=== PATIENT | female | born 1960 | race Caucasian/White ===

== ENCOUNTER → 2020-05-24 16:09 | Outpatient (CLI) | payer BC, SELFPAY ==
--- NOTE | ~2020-05-24 | MR_ITS ---
EXAMINATION: MR brain/brain stem wo con DATE: 05/24/2020 17:34 INDICATION: Headaches TECHNIQUE: Magnetic resonance imaging (MRI) of the brain and brainstem was performed without intraven ous contrast. Sequences included sagittal and axial T1-weighted SE, axial diffusion-weighted FS SE, a xial T2*-weighted GRE, axial T2-weighted FLAIR, and axial T2-weighted FSE. Postcontrast axial and cor onal T1-weighted SE was obtained. Apparent diffusion coefficient (ADC) maps were created. COMPARISON: None. FINDINGS: There are no areas of restricted diffusion to suggest acute infarction. No intracranial hemorrhage or abnormal intracranial mass lesion. There is a partially empty sella with pituitary appearing compr essed with concave cephalad margin along the inferior aspect of the enlarged and predominantly CSF fi lled sella turcica which measures 2.0 x 1.2 x 1.3 cm. There is a single small focus of nonspecific in creased T2-weighted signal intensity in the right frontal lobe subcortical white matter which is with in normal limits for age. There are no intraparenchymal signal abnormalities seen on the other pulse sequences. The ventricles are symmetric and normal in size. There are no abnormal extra-axial fluid c ollections. Flow voids are seen in the cerebral arteries on the T2-weighted sequences consistent with their expected patency. Visualized orbits and soft tissues are unremarkable. No evident swelling of the optic disc. IMPRESSION: 1. Partially empty sella which can be seen with idiopathic intracranial hypertension. Reviewed, dictated and finalized at [facility]. [employer] SYSTEMS IMPRESSION: 1. Partially empty sella which can be seen with idiopathic intracranial hyper tension.
== END ==
PROVIDERS: PCP Internal Medicine; Visit Provider Internal Medicine
DX: R51.9 Headache, unspecified (principal)
CPT/HCPCS: 70551

== ENCOUNTER → 2020-07-04 17:31 | Outpatient (CLI) | payer BC, SELFPAY ==
--- NOTE | ~2020-07-04 | DEXA_ITS ---
Bone Density Report Name: Qiana Rivera Age: 60 Sex: Female Ethnicity: White Date of : 1960 Indication: osteopenia; monitoring treatment; height loss; hysterectomy; postmenopausal Referring Provider: DEEPA, NICOLE Study: Bone densitometry was performed. Exam Date: July 04, 2020 Accession number: [id number] Bone Density: Region BMD T-score Z-score Classification AP Spine (L1-L4) 0.834 -1.9 -0.6 Osteopenia Femoral Neck (Left) 0.789 -0.5 0.7 Normal Total Hip (Left) 0.962 0.2 1.1 Normal Femoral Neck (Right) 0.810 -0.4 0.9 Normal Total Hip (Right) 1.006 0.5 1.4 Normal Total Hip Mean 0.984 0.4 1.3 Normal World Health Organization criteria for BMD impression classify patients as: Normal (T-score at or above -1.0), Osteopenia (T-score between -1.0 and -2.5), or Osteoporosis (T-score at or below -2.5). 10-year Fracture Risk: FRAX not reported because: Treated for osteoporosis Previous Exams: Region Exam Age BMD T-score BMD Change BMD Change Date g/cm2 vs Baseline vs Previous AP Spine(L1-L4) 07/04/2020 60 0.834 -1.9 -0.027* -0.025* 05/21/2018 58 0.860 -1.7 -0.002 0.038 05/01/2015 55 0.822 -2.0 -0.039 -0.014 04/20/2013 53 0.836 -1.9 -0.026 0.013 03/13/2011 50 0.823 -2.0 -0.038 0.011 10/26/2008 48 0.812 -2.1 -0.049* -0.049* 10/21/2006 46 0.861 -1.7 Total Hip(Left) 07/04/2020 60 0.962 0.2 0.015 -0.018 05/21/2018 58 0.980 0.3 0.033* 0.006 05/01/2015 55 0.974 0.3 0.027 0.006 04/20/2013 53 0.967 0.2 0.020 0.040* 03/13/2011 50 0.927 -0.1 -0.020 -0.037 10/26/2008 48 0.964 0.2 0.017 0.017 10/21/2006 46 0.947 0.0 Total Hip(Right) 07/04/2020 60 1.006 0.5 0.037* 0.021 05/21/2018 58 0.985 0.4 0.017 -0.005 05/01/2015 55 0.991 0.4 0.022 0.021 04/20/2013 53 0.970 0.2 0.002 0.011 03/13/2011 50 0.959 0.1 -0.010 -0.025 10/26/2008 48 0.983 0.3 0.015 0.015 10/21/2006 46 0.968 0.2 *Denotes significance at 95% confidence level, LSC for AP Spine = 0.022 g/cm2, LSC for Total Hip = 0.027 g/cm2 Clinical Information Provided by Patient: Is being treated for
== END ==
PROVIDERS: PCP Internal Medicine; Visit Provider Nurse Practitioner
DX: M85.88 Other specified disorders of bone density and structure, other site (principal)
CPT/HCPCS: 77080

== ENCOUNTER → 2020-10-30 13:16 | Outpatient (CLI) | payer BC, SELFPAY ==
--- NOTE | ~2020-10-30 | MR_ITS ---
EXAMINATION: MR lumbar spine wo [facility] EXAM DATE: 10/30/2020 13:51 INDICATION: Low back pain, left hip and leg pain, progressing. TECHNIQUE: Multi-sequential, multiplanar MR images of the lumbar spine were obtained without contrast . Sagittal T1, T2, T2 fat saturation images. Axial T2 weighted images. Mild to moderate disc disea se L-1-2 and L2-3, moderate at L5-S1 and mild at L3-4 and L4-5. There is 3 mm retrolisthesis L5 on S1 . The conus medullaris terminates at the L1 level and has normal signal intensity and morphology. Pa raspinal soft tissue is unremarkable. FINDINGS: Level by level evaluation: T12-L1: Disc does not extend beyond the endplate margin. Facet arthropathy: None. Neural foraminal stenosis: No stenosis. Central canal stenosis: No stenosis. L1-L2: There is a mild diffuse disc bulge. Facet arthropathy: Minimal. Neural foraminal stenosis: No stenosis. Central canal stenosis: No stenosis. L2-L3: There is a mild to moderate diffuse disc bulge. Facet arthropathy: Mild. Neural foraminal stenosis: Mild left. Central canal stenosis: No stenosis. L3-L4: There is a mild diffuse disc bulge. Facet arthropathy: Mild. Neural foraminal stenosis: Mild to moderate left. Central canal stenosis: No stenosis. L4-L5: There is a mild diffuse disc bulge. Facet arthropathy: Mild. Neural foraminal stenosis: Mild bilateral. Central canal stenosis: Minimal. L5-S1: There is a mild diffuse disc bulge. Facet arthropathy: Mild. Neural foraminal stenosis: Mild bilateral. Central canal stenosis: Minimal. IMPRESSION: 1. L5-S1 grade 1 retrolisthesis, moderate disc disease. 2. Otherwise overall mild to moderate lumbar spondylosis as detailed above. Reviewed, dictated and finalized at location A.
== END ==
PROVIDERS: PCP Internal Medicine; Visit Provider Internal Medicine
DX: M47.817 Spondylosis without myelopathy or radiculopathy, lumbosacral region (principal); M48.07 Spinal stenosis, lumbosacral region
CPT/HCPCS: 72148

== ENCOUNTER → 2020-12-13 14:23 | Outpatient (CLI) | payer BC, SELFPAY ==
--- NOTE | ~2020-12-13 | XR_ITS ---
. XR hip LT 2V w AP pelvis 12/13/2020 15:00 Indication: Left hip pain Procedure: 3 views left hip including AP pelvis Comparison: No prior studies for comparison. Findings: No fracture, subluxation or dislocation. Normal mineralization. Sacral foramen are symmetri c. Pelvic rings are intact. Impression: 1: No significant bone or joint abnormality. Reviewed, dictated and finalized at location A. Impression: 1: No significant bone or joint abnormality.
== END ==
PROVIDERS: PCP Internal Medicine; Visit Provider Nurse Practitioner Adult Health
DX: M25.552 Pain in left hip (principal)
CPT/HCPCS: 73502

== ENCOUNTER → 2021-01-09 10:07 | Outpatient (CLI) | payer BC, SELFPAY ==
--- NOTE | ~2021-01-09 | MM_ITS ---
EXAMINATION: MM screening [facility] BI w noel HISTORY: Screening mammogram TECHNIQUE: Craniocaudal and mediolateral oblique 3-D tomosynthesis images were obtained and synthetic 2-D images were generated. CAD analysis was submitted and interpreted. COMPARISON: 07/29/2019, 05/21/2018, 04/30/2017 BREAST PARENCHYMAL COMPOSITION: There are scattered areas of fibroglandular density. FINDINGS: There is no evidence of suspicious mass, calcification, or architectural distortion to sugg est malignancy in either breast. There has been no suspicious interval change. IMPRESSION: 1. No mammographic evidence of malignancy. 2. Recommend routine screening mammography in one year. BI-RADS Category 1: Negative Reviewed, dictated and finalized at location A.
== END ==
PROVIDERS: PCP Internal Medicine; Visit Provider Nurse Practitioner
DX: Z12.31 Encounter for screening mammogram for malignant neoplasm of breast (principal)
CPT/HCPCS: 77063; 77067

== ENCOUNTER 2021-10-29 01:58 | Day surgery (SDC) | payer BC, SELFPAY ==
[2021-10-11 14:50] VITALS: BMI 39.2
--- NOTE | 2021-10-26 13:41 | PM.HPGS ---
History of Present Illness History of Present Illness Consent: Risks, benefits, and alternatives have been discussed and questions answered. Patient agrees to proceed with procedure. Chief complaint: neoplasm screening, dysphagia Narrative: Qiana Laidr is a 61 year old female who has had acid reflux her for which she is taking pantoprazole since 2005. She has had dysphagia from time to time and more so recently. On 1 endoscopy she apparently had a Schatzki's ring but it was not dilated from what I can determine. Her last EGD it appears was in 2013. Her last colonoscopy was in 2007. Biopsies were obtained at that time to rule out microscopic colitis, and these were normal. Her main symptom now is that she will feel full after few bites of food as though it is stuck in the subxiphoid area. If she waits well she can continue to eat. Despite feeling full early she has not lost weight in fact has been gradually gaining weight. She has not had episodes were food comes back up on her, or where drinking water will have the water shoot back out because something is impacted, it simply feels as though she is full she is also due for colon cancer screening. Her last colonoscopy was 14 years ago. She does have some issues with constipation lately. Review of Systems Review of Systems: All systems reviewed & are unremarkable except as noted in HPI and below PMFSH Social History Social History Smoking packs per day: 1 Smoking cigarettes per day: 20.0 Years smoked: 6 Smoking pack-years: 6.00 Smoking status: Former smoker Tobacco type: cigarettes Second hand tobacco smoke exposure: Yes Alcohol intake: current Alcohol use details: 2 per month Substance use: never Substance use type: does not use Living arrangements: with family Gender identity (if verbalized by the patient): Female Spiritual care concerns: No Meds Home Medications and Allergies Home Medications Medication Instructions Recorded Confirmed Type alendronate 70 mg tablet 70 mg PO WEEKLY 10/02/21 10/11/21 History cholecalciferol (vitamin D3) 1,250 1,250 mcg PO WEEKLY 10/02/21 10/11/21 History mcg (50,000 unit) capsule ibuprofen 800 mg tablet 800 mg PO TID 10/02/21 10/11/21 History pantoprazole 40 mg tablet,delayed 40 mg PO QAM 28 Days #90 tablet 10/02/21 10/11/21 Rx release Allergies Allergy/AdvReac Type Severity Reaction Status Date / Time No Known Allergies Allergy Unknown Verified 10/29/21 11:56 Exam Const: General: alert Nutritional Appearance: obese Orientation/consciousness: patient oriented x3 Resp: Auscultation: clear to auscultation bilaterally Cardio: Rhythm: regular rhythm GI: GI Palp: Yes Soft to palpation and No Tenderness to palpation present (GI) Neuro: General: patient oriented x3 Assessment and Plan Assessment and plan (1) GERD (gastroesophageal reflux disease): Code(s): K21.9 - Gastro-esophageal reflux disease without esophagitis Status: Acute Assessment and Plan: EGD with possible biopsy or dilatation or cautery. (2) Encounter for colorectal cancer screening: Code(s): Z12.11 - Encounter for screening for malignant neoplasm of colon; Z12.12 - Encounter for screening for malignant neoplasm of rectum Status: Acute Assessment and Plan: Colonoscopy with possible biopsy or polypectomy or cautery or injection of substances.
[2021-10-29 11:48] VITALS: BP 137/85; PULSE 79; RESP 16; TEMP 36; O2SAT 98; BMI 38.7
[2021-10-29] MEDS: LACTATED RINGERS 1,000 ML 150 ML IV CONT (11:55)
--- NOTE | 2021-10-29 12:11 | WPDANESEPPF ---
Anes - Initial Pre Proc Eval Procedure: Operation Date: 10/29/21 13:00 Proposed Procedures p Esophagogastroduodenoscopy & Screening Colonoscopy - Corey Jacome MD Date/Time: 10/29/21 12:11 Surgeon: Corey Jacome MD Pre Op Diagnosis: neoplasm screening, dysphagia Patient Data Age: 61 Gender: F Height: 1.65 m Weight: 105.5 kg Last Vital Signs Temp 36.0 C L 10/29/21 11:48 Pulse 79 10/29/21 11:48 Resp 16 10/29/21 11:48 BP 137/85 10/29/21 11:48 Pulse Ox 98 10/29/21 11:48 Allergies Allergy/AdvReac Type Severity Reaction Status Date / Time No Known Allergies Allergy Unknown Verified 10/29/21 11:56 Home Medications Medication Instructions Recorded Confirmed Type alendronate 70 mg tablet 70 mg PO WEEKLY 10/02/21 10/11/21 History cholecalciferol (vitamin D3) 1,250 1,250 mcg PO WEEKLY 10/02/21 10/11/21 History mcg (50,000 unit) capsule ibuprofen 800 mg tablet 800 mg PO TID 10/02/21 10/11/21 History pantoprazole 40 mg tablet,delayed 40 mg PO QAM 28 Days #90 tablet 10/02/21 10/11/21 Rx release Patient hx anesthesia problems: none Family hx anesthesia problems: none Results Review: All pre-operative results and documents have been reviewed as part of the pre-operative evaluation. [facility] Past Medical History Medical History Arthritis Chronic bronchitis JILLIAN (obstructive sleep apnea) Social History Social History Smoking packs per day: 1 Smoking cigarettes per day: 20.0 Years smoked: 6 Smoking pack-years: 6.00 Smoking status: Former smoker Tobacco type: cigarettes Second hand tobacco smoke exposure: Yes Alcohol intake: current Alcohol use details: 2 per month Substance use: never Substance use type: does not use Living arrangements: with family Gender identity (if verbalized by the patient): Female Spiritual care concerns: No Anes - Eval Final PreProcedure Day of Procedure 10/29/21 12:11 Patient weight: obese Heart: regular rate and rhythm Lungs: decreased breath sounds Airway: Mallampati scale class II Neurological: alert and oriented Last oral intake: >/= 8 hours ASA classification: III Emergent: no Anesthetic plan: proceed Anesthesia type and monitoring: general GIVS and standard monitoring Results Review: All pre-operative results and documents have been reviewed as part of the pre-operative evaluation. Informed Consent: The patient's anesthetic plan and its attendant risks and benefits were discussed with the patient/family/POA. Questions were solicited and answers provided to the satisfaction of the patient/family/POA.
--- NOTE | 2021-10-29 12:44 | SUR.OPER ---
EGD END: 1240 COLONOSCOPY START: 1246
[2021-10-29 13:04] VITALS: BP 97/61; PULSE 71; RESP 18; O2SAT 95
[2021-10-29 13:14] VITALS: BP 107/68; PULSE 59; RESP 18; O2SAT 96
[2021-10-29 13:24] VITALS: BP 123/79; PULSE 64; RESP 14; TEMP 35.9; O2SAT 100
== END 2021-10-29 13:41 | disposition home or self-care (01) ==
PROVIDERS: PCP Internal Medicine; Visit Provider Internal Medicine Gastroenterology
PROC: 0DJ08ZZ Inspection of Upper Intestinal Tract, Via Natural or Artificial Opening Endoscopic (ICD-10-PCS; CPT 43235; principal; 2021-10-29 13:00)
DX: Z12.11 Encounter for screening for malignant neoplasm of colon (principal); K22.2 Esophageal obstruction; K31.7 Polyp of stomach and duodenum; K57.30 Diverticulosis of large intestine without perforation or abscess without bleeding; R10.13 Epigastric pain; M19.90 Unspecified osteoarthritis, unspecified site; G47.33 Obstructive sleep apnea (adult) (pediatric); Z87.891 Personal history of nicotine dependence; E66.9 Obesity, unspecified; Z68.38 Body mass index [BMI] 38.0-38.9, adult
CPT/HCPCS: 45378; 43249; C1726; J2704; J7120

== ENCOUNTER → 2022-03-20 13:29 | Outpatient (CLI) | payer BC, SELFPAY ==
--- NOTE | ~2022-03-20 | MM_ITS ---
EXAMINATION: MM screening [facility] BI w noel HISTORY: Screening mammogram TECHNIQUE: Craniocaudal and mediolateral oblique 3-D tomosynthesis images were obtained and synthetic 2-D images were generated. CAD analysis was submitted and interpreted. COMPARISON: 01/09/2021, 07/29/2019, 05/21/2018 bilateral screening mammogram examinations BREAST PARENCHYMAL COMPOSITION: There are scattered areas of fibroglandular density. FINDINGS: There is no evidence of suspicious mass, calcification, or architectural distortion to sugg est malignancy in either breast. There has been no suspicious interval change. IMPRESSION: 1. No mammographic evidence of malignancy. 2. Recommend routine screening mammography in one year. BI-RADS Category 1: Negative Reviewed, dictated and finalized at location A.
== END ==
PROVIDERS: PCP Internal Medicine; Visit Provider Nurse Practitioner
DX: Z12.31 Encounter for screening mammogram for malignant neoplasm of breast (principal)
CPT/HCPCS: 77063; 77067

== ENCOUNTER → 2022-08-12 13:21 | Outpatient (CLI) | payer BC, SELFPAY ==
--- NOTE | ~2022-08-12 | DEXA_ITS ---
Bone Density Report Name: ROSALINO JACOBO Age: 62 Sex: Female Ethnicity: White Date of : 1960 Indication: postmenopausal osteoporosis; monitoring treatment; height loss; hysterectomy; Referring Provider: DEEPA, NICOLE Study: Bone densitometry was performed. Exam Date: August 12, 2022 Accession number: [id number] Bone Density: Region BMD T-score Z-score Classification AP Spine (L3, L4) 0.839 -2.4 -0.8 Osteopenia Femoral Neck (Left) 0.780 -0.6 0.7 Normal Total Hip (Left) 0.971 0.2 1.3 Normal Femoral Neck (Right) 0.781 -0.6 0.7 Normal Total Hip (Right) 0.989 0.4 1.4 Normal Total Hip Mean 0.980 0.3 1.4 Normal World Health Organization criteria for BMD impression classify patients as: Normal (T-score at or above -1.0), Osteopenia (T-score between -1.0 and -2.5), or Osteoporosis (T-score at or below -2.5). 10-year Fracture Risk: FRAX not reported because: Treated for osteoporosis Previous Exams: Region Exam Age BMD T-score BMD Change BMD Change Date g/cm2 vs Baseline vs Previous AP Spine(L3, L4) 08/12/2022 62 0.839 -2.4 0.009 0.056* 07/04/2020 60 0.783 -2.9 -0.046* -0.034* 05/21/2018 58 0.817 -2.6 -0.012 0.061 05/01/2015 55 0.756 -3.1 -0.074 -0.052* 04/20/2013 53 0.808 -2.7 -0.022 0.015 03/13/2011 50 0.793 -2.8 -0.037 0.013 10/26/2008 48 0.780 -2.9 -0.049* -0.049* 10/21/2006 46 0.830 -2.5 Total Hip(Left) 08/12/2022 62 0.971 0.2 0.024 0.008 07/04/2020 60 0.962 0.2 0.015 -0.018 05/21/2018 58 0.980 0.3 0.033* 0.006 05/01/2015 55 0.974 0.3 0.027 0.006 04/20/2013 53 0.967 0.2 0.020 0.040* 03/13/2011 50 0.927 -0.1 -0.020 -0.037 10/26/2008 48 0.964 0.2 0.017 0.017 10/21/2006 46 0.947 0.0 Total Hip(Right) 08/12/2022 62 0.989 0.4 0.021 -0.017 07/04/2020 60 1.006 0.5 0.037* 0.021 05/21/2018 58 0.985 0.4 0.017 -0.005 05/01/2015 55 0.991 0.4 0.022 0.021 04/20/2013 53 0.970 0.2 0.002 0.011 03/13/2011 50 0.959 0.1 -0.010 -0.025 10/26/2008 48 0.983 0.3 0.015 0.015 10/21/2006 46 0.968 0.2 *Denotes significance at 95% confidence level, LSC
== END ==
PROVIDERS: PCP Internal Medicine; Visit Provider Nurse Practitioner
DX: M85.88 Other specified disorders of bone density and structure, other site (principal)
CPT/HCPCS: 77080

== ENCOUNTER → 2023-05-17 10:36 | Outpatient (CLI) | payer BC, SELFPAY ==
--- NOTE | ~2023-05-17 | MM_ITS ---
EXAMINATION: MM screening [facility] BI w noel HISTORY: Screening mammogram TECHNIQUE: Craniocaudal and mediolateral oblique 3-D tomosynthesis images were obtained and synthetic 2-D images were generated. CAD analysis was submitted and interpreted. COMPARISON: 03/20/2022, 01/09/2021, 07/29/2019 bilateral screening mammogram examinations BREAST PARENCHYMAL COMPOSITION: There are scattered areas of fibroglandular density. FINDINGS: There is no evidence of suspicious mass, calcification, or architectural distortion to sugg est malignancy in either breast. There has been no suspicious interval change. IMPRESSION: 1. No mammographic evidence of malignancy. 2. Recommend routine screening mammography in one year. BI-RADS Category 1: Negative Reviewed, dictated and finalized at location B. AND DIE MAKER
== END ==
PROVIDERS: PCP Obstetrics & Gynecology Gynecology; Visit Provider Obstetrics & Gynecology Gynecology
DX: Z12.31 Encounter for screening mammogram for malignant neoplasm of breast (principal)
CPT/HCPCS: 77063; 77067

== ENCOUNTER 2023-09-24 07:45 | Outpatient (CLI) | payer BC, SELFPAY ==
--- NOTE | ~2023-09-24 | MR_ITS ---
EXAMINATION: MR brain/brain stem wo/w con DATE: 09/24/2023 08:42 INDICATION: Disorder of glossopharyngeal nerve TECHNIQUE: Magnetic resonance imaging (MRI) of the brain and brainstem was performed without and with 19 mL Multihance intravenous contrast. Sequences included sagittal and axial T1-weighted FSE, axial diffusion-weighted FS EPI, axial T2*-weighted GRE, axial T2-weighted FLAIR Propeller, axial T2-weight ed Propeller, small hzwxb-pr-[id number] coronal FIESTA, small ryhjw-ah-gord coronal T1-weighted FSE, and sm all oejui-dx-cndf axial T1-weighted SPGR. Postcontrast sequences included axial T1-weighted FSE, smal l tcppy-nk-nngf coronal T1-weighted FSE, and small subww-qx-urdn axial T1-weighted SPGR. Apparent dif fusion coefficient (ADC) maps were created. COMPARISON: Brain MR dated 05/24/2020 FINDINGS: There are no areas of restricted diffusion to suggest acute infarction. No intracranial hemorrhage or abnormal intracranial mass lesion. There are no intraparenchymal signal abnormalities seen on the ot her pulse sequences. The ventricles are symmetric and normal in size. Again seen is an enlarged empt y sella with pituitary flattened with concave cephalad margin along the floor of the enlarged CSF fi lled sella. Normal midline pituitary stalk. There are no abnormal extra-axial fluid collections. Flow voids are seen in the cerebral arteries on the T2-weighted sequences consistent with their expected patency. Normal seventh/eighth cranial nerve complexes. No cerebellopontine angles masses. The cister nal portion of the glossopharyngeal nerves appear normal extending between its origin at the dorsolat eral margin of the medulla to the prior stenosis of the jugular foramen. Prominent mucosal thickening and small amount of dependently layering fluid which nearly fills the left sphenoid sinus. Mild muco heide thickening in the right maxillary and bilateral ethmoid sinuses. Visualized orbits and soft tissu es are unremarkable. No asymmetric atrophy of the facial musculature. There are no areas of abnormal enhancement on the post contrast images. IMPRESSION: 1. Unchanged expanded, partially empty sella which can be seen with idiopathic intracranial hyperte nsion. 2. Otherwise normal for age brain with normal appearance to the visualized portions of the bilateral hypoglossal nerves. 3. . Prominent mucosal thickening and small amount of dependently layering fluid in the left sphenoid sinus suggestive of acute sinusitis. Reviewed, dictated and finalized at location A. IMPRESSION: 1. Unchanged expanded, partially empty sella which can be seen with idiopathi c intracranial hypertension. 2. Otherwise normal for age brain with normal appearance to the visualized port ions of the bilateral hypoglossal nerves. 3. . Prominent mucosal thickening and small amount of dependently layering flui d in the left sphenoid sinus suggestive of acute sinusitis.
== END 2023-09-24 07:46 ==
PROVIDERS: PCP Internal Medicine
DX: G52.1 Disorders of glossopharyngeal nerve (principal); G50.1 Atypical facial pain
CPT/HCPCS: 70553; A9577

== ENCOUNTER 2024-07-26 07:45 | Outpatient (CLI) | payer BC, SELFPAY ==
--- NOTE | ~2024-07-26 | XR_ITS ---
EXAMINATION: XR lg joint inject/asp w image DATE: 07/26/2024 09:43 EXAMINATION: XR lg joint inject/asp w image DATE: 07/26/2024 09:43 INDICATION: Primary osteoarthritis of the left shoulder. TECHNIQUE: A time-out was performed to verify the patient's name, date of , and procedure to b e performed. The procedure including the risks, benefits, and alternatives was discussed with the pat ient. Risks discussed included bleeding and infection. The patient understood the risks and agreed to proceed. The skin overlying the rotator cuff interval of the left glenohumeral joint was prepped an d draped in usual sterile fashion. Anesthetic was administered with 1% lidocaine subcutaneously. A 22 G needle was advanced under fluoroscopic guidance into the joint. Injection of 1 mL of Omnipaque 240 confirmed intra-articular position of the needle. Subsequently, injectate consisting of 5 mm a 4 :1 mixture of 1% lidocaine: 80 mg/mL Depo-Medrol for a total dosage of 80 mg Depo-Medrol was instille d. Washout of contrast was seen confirming intra-articular administration. The needle was removed and the entry site was cleaned and dressed. There were no immediate complications. Fluoroscopy exposure time was 0.1 minutes. The total number of images was 2. Total DAP was 0.303 Gycm^2 FINDINGS: Real-time fluoroscopy demonstrates the needle and contrast in the left glenohumeral joint. Patient's pain prior to procedure:0/10. Patient's pain following the procedure: 0/10. IMPRESSION: 1. Successful left glenohumeral joint injection of local anesthetic and steroid. . Reviewed, dictated and finalized at location A. CAL PLANNER IMPRESSION: 1. Successful left glenohumeral joint injection of local anesthetic and steroid . .
--- OUTSIDE RECORDS SUMMARY | 2024-07-29 11:36 | XMS_ITS | Referral Summary ---
Author Organization [facility] Address [address] [place] [address] Care Team Providers Care Laundry Machine Mechanic Name Role Phone Aleksandr Pro MD Primary Care Provider [phone] Encounters Date Type Department Care Team Description 05/07/2024 Telephone [facility] Pulmonology [address] [facility] [address] [place] [address] Kristina Boateng RN from Last 3 Months Allergies No known active allergies Medications alendronate (FOSAMAX) 70 mg tablet 06/27/2023 Active ergocalciferol (VITAMIN D) 50,000 unit capsule 06/27/2023 Active ibuprofen (ADVIL,MOTRIN) 800 mg tablet 1 tablet (800 mg total) 3 (three) times a day Active Synthroid 25 mcg tablet 06/11/[address] (PROTONIX) 40 mg EC tablet 06/30/2023 Active Ozempic 2 mg/dose (8 mg/3 mL) pen injector injection 06/11/2023 Active sertraline (ZOLOFT) 50 mg tablet 06/11/2023 Active vibegron (Gemtesa) 75 mg tablet 08/19/2023 Active acetaminophen-c odeine (TYLENOL with CODEINE #3) 300-30 mg per tablet Take 1 tablet twice a day by oral route as needed for 7 days. Active albuterol HFA (PROVENTIL HFA,VENTOLIN HFA,PROAIR HFA) 90 mcg/actuation inhaler INHALE 2 PUFFS PO Q 6 H PRF WHEEZING Active amoxicillin 500 mg tablet/capsule Take 1 tablet every 8 hours by oral route as directed for 7 days. Active capsaicin 0.1 % cream JUANPABLO AA TID PRN Active cefdinir (OMNICEF) 300 mg capsule Take 1 capsule twice a day by oral route for 7 days. Active cefuroxime (CEFTIN) 500 mg tablet Take 1 tablet twice a day by oral route for 10 days. Active ciprofloxacin (Cipro) 500 mg tablet Take 1 tablet twice a day by oral route for 7 days. Active cyclobenzaprine (FLEXERIL) 5 mg tablet Active HYDROcodone-soraya taminophen (NORCO) 10-325 mg per tablet Active lubiprostone (Amitiza) 24 mcg capsule Take by mouth 2 (two) times a day Active phentermine 37.5 mg capsule Take by mouth daily Active phentermine (ADIPEX-P) 37.5 mg tablet Take by mouth daily Active predniSONE (DELTASONE) 10 mg tablet Take by oral route. Active predniSONE (DELTASONE) 20 mg tablet 3tabs x 3 days, 2tabs x 3days, 1 tab x 3 days Active predniSONE (DELTASONE) 50 mg tablet Active sulfamethoxazol e-trimethoprim (BACTRIM DS) 800-160 mg per tablet Take 1 tablet by mouth 2 (two) times a day 09/23/2023 Active traMADoL (ULTRAM) 50 mg tablet Active triamcinolone (KENALOG) 0.1 % cream apply to affected area daily as needed Active magnesium gluconate 12.5 mg magne- sium (250 mg) tablet Take 1 tablet every day by oral route at bedtime. Active nortriptyline (PAMELOR) 25 mg capsule Take 2 capsules at bedtime daily. 180 capsule 1 04/22/2024 Active Active Problems Problem Noted Date Diagnosed Date Simple chronic bronchitis 07/28/2018 Sleep disorder 11/14/2015 Nocturnal hypoxemia 11/14/2015 Allergic rhinitis due to pollen 11/13/2015 Diaphragmatic hernia without obstruction or gang tomi 11/13/2015 Emphysema, unspecified 11/13/2015 Esophageal reflux 11/13/2015 Personal history of nicotine dependence 11/13/19 16 Pulmonary nodule 11/13/2015 Shortness of breath 11/13/2015 Sleep related hypoventilatio n in conditions classified elsewhere 11/13/2015 Social History Tobacco Use Types Packs/Day Years Used Date Smoking Tobacco: Former Cigarettes Tobacco Cessation:Counseling Given: Not Answered Comments No Sex and Gender Information Value Date Recorded Sex Assigned at Not on file Legal Sex Female 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 Gender Identity Female 09/08/2023 7:46 PM CORPORATE AIRCRAFT MECHANIC Sexual Orientation Straight 09/08/2023 7: 46 PM CORPORATE AIRCRAFT MECHANIC Last Filed Vital Signs Vital Sign Reading Time Taken Comments Blood Pressure 144/98 04/22/2024 8:30 AM CDT Pulse 80 04/22/2024 8:30 AM CDT Temperature 36.7 ??C (98.1 ??F) 08/06/2023 1:57 PM CS T Respiratory Rate 18 04/22/2024 8:30 AM CDT Oxygen Saturation 98% 04/22/2024 8:30 AM CDT Inhaled Oxygen Concentration - - Weight 90.8 kg (200 lb 3.2 oz) 04/22/2024 8:30 A M CDT Height 162.6 cm (5' 4 ) 04/22/2024 8:30 AM CDT Body Mass Index 34.36 04/22/2024 8:30 AM CDT Plan of Treatment Not on file Insurance [employer] [facility] [employer] [place] Care Teams Laundry Machine Mechanic Relationship Specialty Start Date End Date Aleksandr Pro MD PCP - General Internal Medicine 11/12/18
--- OUTSIDE RECORDS SUMMARY | 2024-07-29 11:36 | XMS_ITS | Clinical Summary ---
Author Organization [facility] Address [address] [place] [address]. [place], [place] [id number] [place] [address] Care Team Providers Care Flatwork Assembler Name Role Phone Unavailable Primary Care Provider Unavailabl e Social History Tobacco Use Types Packs/Day Years Used Date Smoking Tobacco: Never Assessed Comments Unknown Sex and Gender Information Value Date Recorded Sex Assigned at Not on file Legal Sex Female 6:50 PM CDT Gender Identity Not on file Sexual Orientation Not on file Plan of Treatment Health Maintenance Due Date Last Done Comments Cervical Cancer Screening Pa p Smear (Age 30 to 64) Every 3 Years 1961 Colorectal Cancer Screening Colonoscopy (10 Years) 1961 Annual Physical 1964 Hepatitis C 1979 DTaP, Tdap and Td Vaccines ( 1 - Tdap) 1980 Cervical Cancer Screening Pa p with HPV Testing (Age 30 to 64) Every 5 Years 1991 Cervical Cancer Screening with HPV 1991 Mammogram Screening 2001 Zoster Vaccines (1 of 2) 2011 COVID-19 Vaccine (2023-2 5 season) 2024 Influenza Adult (#1) 2024 RSV Immunization or 60+ Years (1 - 1-dose 75+ series) 2036 Meningococcal Vaccine Aged Out No roel mitchell eligible based on patient's age to complete this topic Pneumococcal Vaccine: Pediat rics (0 to 5 Years) and At-Risk Patients (6 to 64 Years) Aged Out No longer eligible b ased on patient's age to complete this topic RSV Immunizations Under 20 Months Aged Out No longer eligible based on patient's age to complete this topic
--- OUTSIDE RECORDS SUMMARY | 2024-07-29 11:36 | XMS_ITS | Clinical Summary ---
Author Organization [facility] [place] Address [address] [place] [address] Care Team Providers Care Sales Special Agent Name Role Phone Aleksandr Pro MD Primary Care Provider Allergies No known active allergies Medications alendronate [...] hypoventilatio n in conditions classified elsewhere 11/13/2015 Encounters Date Type Department Care Team Description 05/07/2024 Telephone [facility] Pulmonology [address] [facility] [address] [place] [phone] Kristina Boateng RN from Last 3 Months Social History Tobacco Use Types Packs/Day Years Used Date Smoking Tobacco: Former Cigarettes Tobacco Cessation:Counseling Given: Not Answered Comments No Sex and Gender Information Value Date Recorded Sex Assigned at Not on file Legal Sex Female 6:48 PM SECURITY INCIDENT RESPONSE ENGINEER Gender Identity Female 09/08/2023 7:46 PM SECURITY INCIDENT RESPONSE ENGINEER Sexual Orientation Straight 09/08/2023 7: 46 PM SECURITY INCIDENT RESPONSE ENGINEER Obstetrics History Last Filed Vital Signs Vital Sign Reading [...] 04/22/2024 8:30 AM CDT Plan of Treatment Health Maintenance Due Date Last Done Comments Breast Cancer Screening-Mammogram 1961 Cervical Cancer Screening 1961 Colon Cancer Screening-Colonoscopy 1961 Depression Screening 1961 Hepatitis C Screening 1961 DTaP/Tdap/Td Vaccine (1 - Tdap) 1972 Hepatitis B Screening 1979 Regular Well Visit/Exam 18-64 1979 Pneumococcal vaccine <65 (2 of 2 - PPSV23 or PCV20) 05/26/2015 03/31/2015, 03/30/2015, 07/07/2014 Zoster Vaccine (2 of 2) 06/18/2023 04/23/2023 Covid-19 Vaccine (2023-2 5 season) 2024 04/23/2023, 04/16/2022, 01/13/2022, Additional history exists Influenza Vaccine (#1) 2024 3, 04/16/2022, 04/19/2021, Additional history exists Insurance [employer] [place] Care Teams Sales Special Agent Relationship Specialty Start Date End Date Aleksandr Pro MD PCP - General Internal Medicine 11/12/18
--- OUTSIDE RECORDS SUMMARY | 2024-07-29 11:37 | XMS_ITS | Encounter Summary ---
Author Organization [facility] Care Team Providers Care Retail Merchandiser Technician Name Role Phone Aleksandr Pro MD Primary Care Provider [phone] Encounter Details Date Type Department Care Team (Latest Contact Info) Description 11/14/2015 Orders Only [facility] ProviderMisa MD [address] [place] [id number] Social History Tobacco Use Types Packs/Day Years Used Date Smoking Tobacco: Never Assessed Comments Unknown Sex and Gender Information Value Date Recorded Sex Assigned at Not on file Legal Sex Female 6:48 PM PRINT PROJECT MANAGER Gender Identity Female 09/08/2023 7:46 PM PRINT PROJECT MANAGER Sexual Orientation Straight 09/08/2023 7: 46 PM PRINT PROJECT MANAGER documented as of this encounter Plan of Treatment Not on file documented as of this encounter Procedures Procedure Name Priority Date/Time Associated Diagnosis Comments PROCEDURE - RESULT 11/14/2015 12 :00 AM CDT documented in this encounter Results * PROCEDURE - RESULT (11/14/2015 12:00 AM CDT) Narrative 11/14/2015 12:00 AM CDT Ordered by an unspecified provider. Historical Provider Final Res ult documented in this encounter Visit Diagnoses Not on filedocumented in this encounter Care Teams Retail Merchandiser Technician Relationship Specialty Start Date End Date Aleksandr Pro MD PCP - General Internal Medicine 11/12/18 documented as of this encounter
--- OUTSIDE RECORDS SUMMARY | 2024-07-29 11:37 | XMS_ITS | Data Portability ---
Author Organization [facility] JHONYEvgeny Clifton [facility] Address [address] [place] [address] Care Team Providers Care Cell Builder Name Role Phone SASHA WILBERTO Primary Care Provider Assessment Encounter Date Assessment Date Assessment LastModified by Organization Details LastModified Time 01/07/2024 01/07/2024 blood work continue medications MRI lumbar spinal questions answered stay up-to-date on immunizations and screenings and see me in 4-5 month [email or web address] Not available 02/15/2024 16:17:40 05/17/2024 05/17/2024 mammogram is scheduled for July 26, 2024. Blood pressure is controlled continue current therapy CBC CMP lipid ESR CRP A1c T3-T4 TSH she continues to have the paresthesias I need her to go back and see Neurology Not available 05/22/2024 20:18:30 Plan of Treatment Reminders Order Date Submit Date Provider Last Modified By Organization Details Last Modified Time Details Appointments ANY 15 2024 09:30A Yon Pro MD Not available Not available Not available Lab HbA1c (hemoglob in A1c), blood 2023 024 [facility], [address] [facility], [facility] [address], [place], [address], 01/08/2024 08:24:05 T4, free, serum 2023 024 [facility], [address] [facility], [address], [place], [address], 01/08/2024 08:24:08 T3, free, serum or plasma 2023 024 [facility], [address], [place], [address], 01/08/2024 08:24:07 TSH, ultra-sen sitive, serum 2023 024 [facility], [address], [address], [place], [address], 01/08/2024 08:24:06 lipid panel, serum 2023 024 [facility], [address], [place], [address], 01/08/2024 08:24:04 CBC w/ auto diff 2023 024 [facility], [address], [place], [address], 01/08/2024 08:24:06 CMP, serum or plasma 2023 024 [facility], [address], [place], [address], 01/08/2024 08:24:04 ESR (erythroc yte sedimenta tion rate), blood 2023 024 [email or web address], [address], [address], [place], [address], 06/07/2024 17:08:38 C reactive protein, QN, serum or plasma 2023 024 [email or web address], [address], [address], [place], [address], 06/07/2024 17:08:38 CMP, serum or plasma 2023 024 [facility], [address], [address], [place], [address], 05/17/2024 23:21:37 CBC w/ auto diff 2023 024 [email or web address], [address], [address], [place], [address], 06/07/2024 17:08:38 lipid panel, serum 2023 024 [email or web address], [address], [address], [place], [address], 06/07/2024 17:08:38 TSH, ultra-sen sitive, serum 2023 024 [email or web address], [address] [facility], [address], [place], [address], 06/07/2024 17:08:38 T3, free, serum or plasma 2023 024 [email or web address], [address] [facility], [address], [place], [address], 06/07/2024 17:08:38 T4, free, serum 2023 024 [email or web address], [address] [facility], [address], [place], [address], 06/07/2024 17:08:39 HbA1c (hemoglob in A1c), blood 2023 024 [email or web address], [address] [facility], [address], [place], [address], 06/07/2024 17:08:38 Referral None recorded. Procedures None recorded. Surgeries None recorded. Imaging MRI, lumbar spine, w/o contrast [email or web address], [address], [address], [place], [address], 03/31/2024 15:33:44 Medication Orders None recorded. Patient TargetsNo targets recorded. Patient Instructions Encounter Date Encounter Id Patient Instructions Last Modified By Organization Details Last Modified Time 05/17/2024 [id number] A healthy lifestyle: care instructions [email or web address] Not available 05/17/2024 14:27:56 Reason for Referral None Reported. Results Created Date Observation Date Name Description Value Unit Range Abnormal Flag Note LastModifiedBy Organization Detail LastModifiedTime 01/07/2001/08/2024 LIPID PANEL cholesterol, total 188 mg/dL 100-19 9 Not Available [facility] [address] [place], [address], 01/08/2024 08:24:04 01/07/20 24 01/08/2024 LIPID PANEL triglyceride s 119 mg/dL 0-149 Not Available [facility] [address] [place], [address], 01/08/2024 08:24:04 01/07/20 24 01/08/2024 LIPID PANEL HDL cholesterol 49 mg/dL >39 Not Available [facility] [address] [place], [address], 01/08/2024 08:24:04 01/07/20 24 01/08/2024 LIPID PANEL VLDL cholesterol neal 21 mg/dL 5-40 Not Available [facility] [address] [place], [address], 01/08/2024 08:24:04 01/07/20 24 01/08/2024 LIPID PANEL LDL chol calc ([facility]) 118 mg/dL 0-99 above high normal Not Available [facility] [address] [place], [address], 01/08/2024 08:24:04 01/07/20 24 01/08/2024 COMP. METAB OLIC PANEL (14) glucose 86 mg/dL 70-99 Not Available [facility] [address] [place], [address], 01/08/2024 08:24:04 01/07/20 24 01/08/2024 COMP. METAB OLIC PANEL (14) BUN 15 mg/dL 8-27 Not Available [facility] [address] [place], [address], 01/08/2024 08:24:04 01/07/20 24 01/08/2024 COMP. METAB OLIC PANEL (14) creatinine 0.98 mg/dL 0.57-1 .00 Not Available [facility] [address] [place], [address], 01/08/2024 08:24:04 01/07/20 24 01/08/2024 COMP. METAB OLIC PANEL (14) eGFR 65 mL/mi n/1.7 3 >59 Not Available [facility] [address] [place], [address], 01/08/2024 08:24:04 01/07/20 24 01/08/2024 COMP. METAB OLIC PANEL (14) BUN/creatini ne ratio 15 12-28 Not Available [facility] [address] [facility], [address], 01/08/2024 08:24:04 01/07/20 24 01/08/2024 COMP. METAB OLIC PANEL (14) sodium 143 mmol/ L 134-14 4 Not Available [facility] [address] [place], [address], 01/08/2024 08:24:04 01/07/20 24 01/08/2024 COMP. METAB OLIC PANEL (14) potassium 5.0 mmol/ L 3.5-5. 2 Not Available [facility] [address] [place], [address], 01/08/2024 08:24:04 01/07/20 24 01/08/2024 COMP. METAB OLIC PANEL (14) chloride 104 mmol/ L 96-106 Not Available [facility] [address] [place], [address], 01/08/2024 08:24:04 01/07/20 24 01/08/2024 COMP. METAB OLIC PANEL (14) carbon dioxide, total 27 mmol/ L 20-29 Not Available [facility] [address] [place] [address], [place], [address], 01/08/2024 08:24:04 01/07/20 24 01/08/2024 COMP. METAB OLIC PANEL (14) calcium 9.6 mg/dL 8.7-10 .3 Not Available [facility] [address] [place], [address], 01/08/2024 08:24:04 01/07/20 24 01/08/2024 COMP. METAB OLIC PANEL (14) protein, total 6.5 g/dL 6.0-8. 5 Not Available [facility] [address] [facility] [place], [address], 01/08/2024 08:24:04 01/07/20 24 01/08/2024 COMP. METAB OLIC PANEL (14) albumin 4.2 g/dL 3.9-4. 9 Not Available [facility] [address] [place], [address], 01/08/2024 08:24:04 01/07/20 24 01/08/2024 COMP. METAB OLIC PANEL (14) globulin, total 2.3 g/dL 1.5-4. 5 Not Available [facility] [address] [place] [place], [address], 01/08/2024 08:24:04 01/07/20 24 01/08/2024 COMP. METAB OLIC PANEL (14) bilirubin, total 0.3 mg/dL 0.0-1. 2 Not Available [facility] [address] [place], [address], 01/08/2024 08:24:04 01/07/20 24 01/08/2024 COMP. METAB OLIC PANEL (14) alkaline phosphatase 67 IU/L 44-121 Not Available [facility] [address] [place], [address], 01/08/2024 08:24:04 01/07/20 24 01/08/2024 COMP. METAB OLIC PANEL (14) AST (SGOT) 19 IU/L 0-40 Not Available [facility] [address] [place], [address], 01/08/2024 08:24:04 01/07/20 24 01/08/2024 COMP. METAB OLIC PANEL (14) ALT (SGPT) 17 IU/L 0-32 Not Available [facility] [address] [place], [address], 01/08/2024 08:24:04 01/07/20 24 01/08/2024 HEMOG LOBIN A1C hemoglobin A1C 5.6 % 4.8-5. 6 Predi abete s: 5.7 - 6.4 Diabe wilmer: >6.4 Glyce maninder contr ol for adult s with diabe wilmer: <7.0 Not Available [facility] [address] [place], [address], 01/08/2024 08:24:05 01/07/20 24 01/08/2024 TSH TSH 3.590 uIU/m L 0.450- 4.500 Not Available [facility] [address] [place], [address], 01/08/2024 08:24:06 01/07/20 24 01/08/2024 CBC WITH DIFFE RENTI AL/PL ATELE T WBC 8.6 x10e3 /uL 3.4-10 .8 Not Available [facility] [address] [place], [address], 01/08/2024 08:24:06 01/07/20 24 01/08/2024 CBC WITH DIFFE RENTI AL/PL ATELE T RBC 4.51 x10e6 /uL 3.77-5 .28 Not Available [facility] [address] [place], [address], 01/08/2024 08:24:06 01/07/20 24 01/08/2024 CBC WITH DIFFE RENTI AL/PL ATELE T hemoglobin 13.4 g/dL 11.1-1 5.9 Not Available [facility] [address] [place], [address], 01/08/2024 08:24:06 01/07/20 24 01/08/2024 CBC WITH DIFFE RENTI AL/PL ATELE T hematocrit 40.7 % 34.0-4 6.6 Not Available [facility] [address] [place], [address], 01/08/2024 08:24:06 01/07/20 24 01/08/2024 CBC WITH DIFFE RENTI AL/PL ATELE T MCV 90 fL 79-97 Not Available [facility] [address] [place], [address], 01/08/2024 08:24:06 01/07/20 24 01/08/2024 CBC WITH DIFFE RENTI AL/PL ATELE T MCH 29.7 pg 26.6-3 3.0 Not Available [facility] [address] [place], [address], 01/08/2024 08:24:06 01/07/20 24 01/08/2024 CBC WITH DIFFE RENTI AL/PL ATELE T MCHC 32.9 g/dL 31.5-3 5.7 Not Available [facility] [address] [place], [address], 01/08/2024 08:24:06 01/07/20 24 01/08/2024 CBC WITH DIFFE RENTI AL/PL ATELE T RDW 12.5 % 11.7-1 5.4 Not Available [facility] [address] [facility], [place], [address], 01/08/2024 08:24:06 01/07/20 24 01/08/2024 CBC WITH DIFFE RENTI AL/PL ATELE T platelets 283 x10e3 /uL 150-45 0 Not Available [facility] [address] [facility], [place], [address], 01/08/2024 08:24:06 01/07/20 24 01/08/2024 CBC WITH DIFFE RENTI AL/PL ATELE T neutrophils 52 % notest ab. Not Available [facility] [address] [facility], [place], [address], 01/08/2024 08:24:06 01/07/20 24 01/08/2024 CBC WITH DIFFE RENTI AL/PL ATELE T lymphs 35 % notest ab. Not Available [facility] [address] [facility], [place], [address], 01/08/2024 08:24:06 01/07/20 24 01/08/2024 CBC WITH DIFFE RENTI AL/PL ATELE T monocytes 9 % notest ab. Not Available [facility] [address] [facility], [place], [address], 01/08/2024 08:24:06 01/07/20 24 01/08/2024 CBC WITH DIFFE RENTI AL/PL ATELE T eos 3 % notest ab. Not Available [facility] [address] [facility], [place], [address], 01/08/2024 08:24:06 01/07/20 24 01/08/2024 CBC WITH DIFFE RENTI AL/PL ATELE T basos 1 % notest ab. Not Available [facility] [address] [place], [address], 01/08/2024 08:24:06 01/07/20 24 01/08/2024 CBC WITH DIFFE RENTI AL/PL ATELE T neutrophils (absolute) 4.5 x10e3 /uL 1.4-7. 0 Not Available [facility] [address] [facility], [place], [address], 01/08/2024 08:24:06 01/07/20 24 01/08/2024 CBC WITH DIFFE RENTI AL/PL ATELE T lymphs (absolute) 3.0 x10e3 /uL 0.7-3. 1 Not Available [facility] [address] [place], [address], 01/08/2024 08:24:06 01/07/20 24 01/08/2024 CBC WITH DIFFE RENTI AL/PL ATELE T monocytes(ab solute) 0.7 x10e3 /uL 0.1-0. 9 Not Available [facility] [address] [place], [address], 01/08/2024 08:24:06 01/07/20 24 01/08/2024 CBC WITH DIFFE RENTI AL/PL ATELE T eos (absolute) 0.3 x10e3 /uL 0.0-0. 4 Not Available [facility] [address] [place], [address], 01/08/2024 08:24:06 01/07/20 24 01/08/2024 CBC WITH DIFFE RENTI AL/PL ATELE T baso (absolute) 0.1 x10e3 /uL 0.0-0. 2 Not Available [facility] ([place] [facility]) [address] [place], [address], 01/08/2024 08:24:06 01/07/20 24 01/08/2024 CBC WITH DIFFE RENTI AL/PL ATELE T immature granulocytes 0 % notest ab. Not Available [facility] [address] [facility], [place], [address], 01/08/2024 08:24:06 01/07/20 24 01/08/2024 CBC WITH DIFFE RENTI AL/PL ATELE T immature grans (abs) 0.0 x10e3 /uL 0.0-0. 1 Not Available [facility] [address] [facility], [place], [address], 01/08/2024 08:24:06 01/07/20 24 01/08/2024 TRIIO DOTHY SEBASTIAN E (T3), FREE triiodothyro nine (T3), free 2.6 pg/mL 2.0-4. 4 Not Available [facility] [address] [facility], [place], [address], 01/08/2024 08:24:07 01/07/20 24 01/08/2024 T4,FR EE(DI RECT) T4,free(dire ct) 0.97 NG/dL 0.82-1 .77 Not Available [facility] [address] [place], [address], 01/08/2024 08:24:08 03/02/20 24 10/29/2021 colon oscop y proce dure (PROC ) No observ ation record ed. BARCODE Not Available 2023 10:42:02 03/02/20 24 03/20/2022 MAMMO , scree evie, digit al, bilat eral No observ ation record ed. BARCODE Not Available 2023 10:42:02 07/26/19 25 07/26/2024 injec tion/ aspir ation large joint /burs a (PROC ) No observ ation record ed. [facility] [address], [place], [address], 07/28/2024 15:25:33 07/27/19 25 07/26/2024 MAMMO , scree evie, digit al, bilat eral No observ ation record ed. [facility] [address], [place], [address], 07/28/2024 15:25:12 07/27/19 25 07/26/2024 MAMMO , scree evie, digit al, bilat eral No observ ation record ed. [facility] [address], [place], [address], 07/28/2024 15:24:55 Result Notes None recorded. Problems Name Problem SNOMED Code Status Onset Date Resolution Date Notes Provider Name and Address Organization Details Recorded Time Chronic low back pain 379984002 Active 2023 Nathaniel Edwards [place] null, [place] [facility] 4 16:00:05 Essential hypertension 41053713 Active 2023 Nathaniel Edwards [place], [place] [facility] 4 16:00:06 Hyperlipidemia 30156537 Active 2023 Nathaniel Edwards [place] [facility] 4 16:00:07 Type 2 diabetes mellitus 30472475 Active 2023 Nathaniel Edwards [place], [place] [facility] 4 16:00:08 Problem Notes None recorded. Procedures Surgical History Date Name Laterality Status Provider Name and Address Organization Details Recorded Time 07/07/18 97 Total hysterectomy completed Rekha Anderson MA [place] - [facility] 01/07/2024 15:18:43 Imaging Results Imaging Date Name Status LastModified by Organiz aton [facility] Details LastModified Time 10/29/2021 colonoscopy procedure (PROC) completed [facility] Information not available 03/02/2024 10:42:02 03/20/2022 MAMMO, screening, digital, bilateral completed [facility] Information not available 03/02/2024 10:42:02 07/26/2024 injection/aspir ation large joint/bursa (PROC) completed [facility] [address], [place], [address], 07/28/2024 15:25:33 07/26/2024 MAMMO, screening, digital, bilateral completed [facility] [address], [place], [address], 07/28/2024 15:25:12 07/26/2024 MAMMO, screening, digital, bilateral completed [facility] [address], [place], [address], 07/28/2024 15:24:55 Procedure Notes None recorded. Medical Equipment None Reported. Allergies No known drug allergies Medications Name Sig Start Date Stop Date Status Note LastModified by Organization Details LastModified Time celecoxib 200 mg capsule TAKE 1 CAPSULE BY MOUTH EVERY DAY active Not Available Not Available No t Available alendronate 70 mg tablet TAKE 1 TABLET BY MOUTH 1 TIME A WEEK DIRECTED active Not Available Not Available Not Available sulfamethoxa zole 800 mg-trimethop rim 160 mg tablet TAKE 1 TABLET BY MOUTH TWICE DAILY active Not Available Not Available No t Available nortriptylin e 25 mg capsule active Not Available Not Available Not Available Synthroid 25 mcg tablet TAKE 1 TABLET DAILY active Not Available Not Available No t Available pantoprazole 40 mg tablet,delay ed release TAKE 1 TABLET DAILY 2023 active Not Available Not Available Not Avai lable gabapentin 300 mg capsule active Not Available Not Available Not Available ergocalcifer ol (vitamin D2) 1,250 mcg (50,000 unit) capsule TAKE 1 CAPSULE BY MOUTH EVERY WEEK active Not Available Not Available No t Available sertraline 50 mg tablet TAKE 1 TABLET DAILY active Not Available Not Available No t Available Ozempic 2 mg/dose (8 mg/3 mL) subcutaneous pen injector INJECT 2 MG WEEKLY (PLEASE CALL DOCTOR TO SCHEDULE APPOINTMENT SOON POSSIBLE) active Not Available Not Available No t Available Vitals Date Recorded Body height Provider Name an d Address Organization Details Last Updated DateTime 01/07/2024 165.1 cm Rekha Anderson MA [place] - [facility] 15:14:45 Date Recorded Body mass index (BMI) Body weight Provider Name and Address Organization Details Last Updated DateTime 01/07/2024 33 kg/m2 18281.01 g ILYA [facility] 15:14:49 Date Recorded Heart rate Provider Name an d Address Organization Details Last Updated DateTime 01/07/2024 81 /min Rekha JustinILYA qiu [facility] 15:21:31 Date Recorded Oxygen saturation Oxygen saturation in Arterial blood by Pulse oximetry Provider Name and Address Organization Details Last Updated DateTime 01/07/2024 97 % 97 % Rekha JustinILYA qiu [place] [facility] 01/07/2024 15:21:33 Date Recorded Body height Provider Name an d Address Organization Details Last Updated DateTime 05/17/2024 165.1 cm Rekha AndersonILYA [place] [facility] 11:38:24 Date Recorded Body mass index (BMI) Body weight Provider Name and Address Organization Details Last Updated DateTime 05/17/2024 33.2 kg/m2 57908.76 g Rekha JustinILYA qiu [place] - [facility] 1 07/17/2023 11:40:32 Date Recorded Heart rate Provider Name an d Address Organization Details Last Updated DateTime 05/17/2024 78 /min RekhaILYA Rodriguez [facility] 11:42:42 Date Recorded Oxygen saturation Oxygen saturation in Arterial blood by Pulse oximetry Provider Name and Address Organization Details Last Updated DateTime 05/17/2024 98 % 98 % Rekha Anderson ILYA [facility] 05/17/2024 11:42:44 Date Recorded Systolic blood pressure Diastolic blood pressure Provider Name and Address Organization Details Last Updated DateTime 01/07/2024 122 mm[Hg] 70 mm[Hg] Rekha Anderson ILYA [facility] 01/07/2024 15:21:28 Date Recorded Systolic blood pressure Diastolic blood pressure Provider Name and Address Organization Details Last Updated DateTime 05/17/2024 134 mm[Hg] 70 mm[Hg] Rekha AndersonILYA - [facility] 05/17/2024 11:42:48 Social History Question Answer Notes LastModified by Organizat ion Details LastModified Time Tobacco Smoking Status Former Smoker Rekha Justin, ILYA [facility], [place] - [facility] 01/07/2024 15:17:26 Do You Have An Advance Directive? No Information not available 01/07/2024 What Is Your Level Of Alcohol Consumption? Occasional Information not available 01/07/2024 Are You Blind Or Do You Have Difficulty Seeing? No Information not available 01/07/2024 What Is Your Level Of Caffeine Consumption? Heavy Information not available 01/07/2024 In The 14 Days Before Symptom Onset, Have You Had Close Contact With A Laboratory-confir med COVID-19 While That Case Was Ill? No Information not available 01/07/2024 In The 14 Days Before Symptom Onset, Have You Had Close Contact With A Person Who Is Under Investigation For COVID-19 While That Person Was Ill? No Information not available 01/07/2024 Have You Been To An Area Known To Be High Risk For COVID-19? No Information not available 01/07/2024 Are You Currently Employed? Yes Information not available 01/07/2024 Are You Deaf Or Do You Have Serious Difficulty Hearing? No Information not available 01/07/2024 What Type Of Diet Are You Following? 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 No Information not available 01/07/2024 What Was The Date Of Your Most Recent Tobacco Screening? 05/17/2024 Information not available 05/17/2024 What Is Your Current Pack Years? 10packyears Information not available 01/07/2024 What Is Your Relationship Status? Information not available 01/07/2024 Do You Use Your Seat Belt Or Car Seat Routinely? Yes Information not available 01/07/2024 Do You Have Smoke And Carbon Monoxide Detectors In Your Home? Yes Information not available 01/07/2024 How Much Tobacco Do You Smoke? No Information not available 01/07/2024 Do You Feel Stressed (tense, Restless, Nervous, Or Anxious, Or Unable To Sleep At Night)? [id number] Information not available 01/07/2024 Do You Use Any Illicit Or Recreational Drugs? No Information not available 01/07/2024 Do You Use Sunscreen Routinely? Yes Information not available 01/07/2024 Has Tobacco Cessation Counseling Been Provided? No Information not available 01/07/2024 How Many Years Have You Smoked Tobacco? 10 Information not available 01/07/2024 Do You Or Have You Ever Used Any Other Forms Of Tobacco Or Nicotine? No Information not available 01/07/2024 Sex: Female Functional Status Question Answer Note LastModified by Organization D etails LastModified Time Are you able to care for yourself? Yes Information n ot available 01/07/2024 What is your exercise level? None Information not available 01/07/2024 Mental Status None recorded. Family History Relationship Description Onset Age of this Age Resolved Age Notes LastModified by Organization Details LastModified Time Father Diabetes mellitus mebyma Not available 2023 15:16:04 Sister Diabetes mellitus mebyma Not available 2023 15:16:04 Sister Disorder of thyroid gland mebyma Not available 2023 15:16:12 Sister Malignant tumor of ovary mebyma Not available 2023 15:16:45 Brother Hypertensive disorder mebyma Not available 2023 15:16:27 Mother Hypertensive disorder mebyma Not available 2023 15:16:27 Mother Osteoporosis mebyma Not availab le 01/07/2024 15:16:35 Medical History Condition Response Muscle, Joint, or Bone Problems Y Osteoporosis Y Gynecological HistoryNo gynecological history recorded. Obstetrics History GPAL:G 0 P 0 0 0 0 Immunizations Vaccine Type Date Status Note Provider Baljinder art and Address Organization Details Recorded Time Influenza, split virus, quadrivalent, preservative 7 completed ILYA Samaniego, [facility] 01/07/2024 15:32:54 Influenza, split virus, quadrivalent, preservative 6 completed ILYA Samaniego, [facility] 01/07/2024 15:32:54 Influenza, split virus, quadrivalent, preservative 9 completed Nathaniel Edwards [place] null, [place] [facility] 01/07/2024 15:32:54 Influenza, MDCK, quadrivalent, PF 3 completed Nathaniel [place] [facility] 01/07/2024 15:32:54 zoster recombinant 3 completed Nathaniel [place] [facility] 01/07/2024 15:32:54 COVID-19, mRNA, LNP-S, PF, 30 mcg/0.3 mL dose 1 completed Nathaniel [place] [facility] 01/07/2024 15:32:54 COVID-19, mRNA, LNP-S, PF, 30 mcg/0.3 mL dose 1 completed Nathaniel [place] [facility] 01/07/2024 15:32:54 COVID-19, mRNA, LNP-S, PF, 30 mcg/0.3 mL dose 1 completed Nathaniel [place] [facility] 01/07/2024 15:32:54 COVID-19, mRNA, LNP-S, PF, 30 mcg/0.3 mL dose 1 completed Nathaniel [place] [facility] 01/07/2024 15:32:54 COVID-19, mRNA, LNP-S, PF, 30 mcg/0.3 mL dose, kade-sucrose 2 completed Nathaniel [place] [facility] 01/07/2024 15:32:54 COVID-19, mRNA, LNP-S, bivalent, PF, 30 mcg/0.3 mL dose 2 completed Nathaniel [place] [facility] 01/07/2024 15:32:54 COVID-19, mRNA, LNP-S, PF, kade-sucrose, 30 mcg/0.3 mL 3 completed Nathaniel [place] [facility] 01/07/2024 15:32:54 Pneumococcal conjugate PCV 13 5 completed Nathaniel [place] [facility] 01/07/2024 15:32:54 Influenza, split virus, trivalent, preservative 7 completed Nathaniel [place] [facility] 01/07/2024 15:32:54 Influenza, split virus, trivalent, preservative 4 completed Nathaniel [place] [facility] 01/07/2024 15:32:54 Influenza, split virus, trivalent, PF 6 completed Nathaniel [place] [facility] 01/07/2024 15:32:54 Influenza, split virus, trivalent, PF 5 completed Nathaniel [place] [facility] 01/07/2024 15:32:54 Influenza, split virus, quadrivalent, PF 8 completed ILYA [place] [facility] 01/07/2024 15:32:54 Influenza, split virus, quadrivalent, PF 2 completed Nathaniel Edwards [place] null, [place] [facility] 01/07/2024 15:32:54 Influenza, split virus, quadrivalent, PF 1 completed Nathaniel Edwards [place], [place] [facility] 01/07/2024 15:32:54 Influenza, split virus, quadrivalent, PF 0 completed Nathaniel Edwards [place] [facility] 01/07/2024 15:32:54 Influenza, split virus, trivalent, PF 4 completed Rekha Anderson [place], [place] [facility] 05/17/2024 11:38:34 Past Encounters Encounter ID Performer Location Encounter Start Date Encounter Closed Date Diagnosis/Indication Diagnosis SNOMED-CT Code Diagnosis ICD10 Code Diagnosis Note [id number] MD Moni Connolly (Adult Med) [address] [place] [phone] 01/07/2024 14:58:00 01/07/2024 16:05:43 Essential hypertension 12444264 I10 Hyperlipidemia 23795161 E78.5 Type 2 home betes mellitus 20598193 E11.9 Chronic low back pain 27 9171680 M54.50 [id number] Wilberto Pro MD [facility] Radha Ruiz [address] [place] [address] 05/17/2024 11:04:13 05/17/2024 12:25:10 Obesity 267892310 E66.9 Essential hypertension 67999966 I10 Hyperlipidemia 55174825 E78.5 Diabetes m ellitus screening 670209589 Z13.1 Paresthesia 09334886 R20 .2 Hypothyroidism 03207136 E03.9 Health Concerns Section Related Observation LastModified by Organization Detai ls LastModified Time None Recorded Concern Status LastModified by Organization Details LastModified Time None Recorded Advance Directives Directive N: Payers Encounter Date Sequence Insurance Name Policy Number Policy Moe Covered Member ID Moe Member ID Guarantor Name 01/07/2024 1 [place] [id number] Qiana Chito-E lliott [id number] Qiana Chito-Ell iott 01/07/2024 2 [place] [id number] Silvestre Puenteiott [id number] Qiana Chito-Ell iott 05/17/2024 1 [place] [id number] Qiana Chito-E lliott [id number] Qiana Chito-Ell iott 05/17/2024 2 [place] [id number] Silvestre Puenteiott [id number] Qiana Chito-Ell iott Notes Date Note Type Note Provider Name and Address Organization Details Recorded Time 01/07/2024 text/html 63-year-old for continuity of problems hypertension no headache has not had any dizziness. Hyperlipidemia has lost some weight and needs some blood work to evaluate that diabetes no polyphagia or polydipsia she has chronic low back pain getting a little bit worse going on for a couple of years no numbness tingling no saddle anesthesia worse with movement better with rest no loss of function Wilberto Pro MD Attn: [address] [facility], [place], [address], [facility] 02/15/2024 16:18:04 05/17/2024 text/html GERD stable no nausea no vomiting anxiety has been doing fine on sertraline no side effects hypothyroidism no heat or cold intolerance. Obesity good results a GLP 1 facial numbness has seen Neurology they put her on nortriptyline Wilberto Pro MD Attn: [address] [facility], [place], [address], [place] - [facility] 05/22/2024 20:18:52 OBGyn Episode No OBEpisode recorded.
== END 2024-07-26 07:46 | disposition home or self-care (01) ==
LOC: ANHIMG 07:46
PROVIDERS: PCP Internal Medicine; Visit Provider Physician Assistant Surgical
DX: M19.012 Primary osteoarthritis, left shoulder (principal)
CPT/HCPCS: 20610; 77002; J1010; J2003; Q9966

== ENCOUNTER 2024-07-26 15:47 | Outpatient (CLI) | payer BC, SELFPAY ==
--- NOTE | ~2024-07-26 | MM_ITS ---
EXAMINATION: MM screening [facility] BI w noel HISTORY: Screening TECHNIQUE: Craniocaudal and mediolateral oblique 3-D tomosynthesis images were obtained and synthetic 2-D images were generated. CAD analysis was submitted and interpreted. COMPARISON: Comparison to multiple prior studies sequentially, with oldest reviewed study dated 04/07. BREAST PARENCHYMAL COMPOSITION: Not dense: There are scattered areas of fibroglandular density. FINDINGS: There is no evidence of suspicious mass, calcification, or architectural distortion to sugg est malignancy in either breast. There has been no suspicious interval change. IMPRESSION: 1. No mammographic evidence of malignancy. 2. Recommend routine screening mammography in one year. BI-RADS Category 1: Negative Reviewed, dictated and finalized at location A. T TRIMMER
== END 2024-07-26 15:48 | disposition home or self-care (01) ==
LOC: MICIMG 15:50
PROVIDERS: PCP Internal Medicine; Visit Provider Nurse Practitioner
DX: Z12.31 Encounter for screening mammogram for malignant neoplasm of breast (principal)
CPT/HCPCS: 77063; 77067

== ENCOUNTER 2024-08-25 13:40 | Outpatient (CLI) | payer BC, SELFPAY ==
--- NOTE | ~2024-08-25 | DEXA_ITS ---
Bone Density Report Name: ROSALINO JACOBO Age: 64 Sex: Female Ethnicity: White Date of : 1960 Indication: postmenopausal; screening for osteoporosis; height loss; hysterectomy; Referring Provider: DEEPA, NICOLE Study: Bone densitometry was performed. Exam Date: August 25, 2024 Accession number: [id number] Bone Density: Region BMD T-score Z-score Classification AP Spine(L1-L4) 0.814 -2.1 -0.5 Osteopenia Femoral Neck (Left) 0.750 -0.9 0.5 Normal Total Hip (Left) 0.911 -0.3 0.9 Normal Femoral Neck (Right) 0.723 -1.1 0.3 Osteopenia Total Hip (Right) 0.914 -0.2 0.9 Normal Total Hip Mean 0.913 -0.3 0.9 Normal World Health Organization criteria for BMD impression classify patients as: Normal (T-score at or above -1.0), Osteopenia (T-score between -1.0 and -2.5), or Osteoporosis (T-score at or below -2.5). 10-year Fracture Risk: FRAX not reported because: Treated for osteoporosis Clinical Information Provided by Patient: Is being treated for osteoporosis Has used the following medications: Vitamin D Has the following medical conditions: Hysterectomy Patient maximum height was 67 Menopause Age: 37 No regular weight bearing exercise Does not regularly consume dairy products Drinks caffeinated beverages Onset of menses at age 13 Number of children 0 Impression: The patient has low bone mass, based on the Total Spine T-score. Discussion: It is important to ask patients whether they are taking their medications and to encourage continued and appropriate compliance with their osteoporosis therapies to reduce fracture risk. It is also important to review their risk factors and encourage appropriate calcium and vitamin D intakes, exercise, fall prevention and other lifestyle measures. Follow-Up: Consider a repeat BMD and Vertebral Fracture Assessment (VFA) exam in 2 years or sooner if medically necessary, to reassess this patient's status. Reported by: MADDIE on 08/25/2024 2:13:00 PM. Reviewed, dictated and finalized at location [facility] ROACH
--- OUTSIDE RECORDS SUMMARY | 2024-08-25 13:46 | XMS_ITS | Clinical Summary ---
Author Organization [facility] Address [address] [place] [id number] Care Team Providers Care Nursing Scheduler Name Role Phone Unavailable Primary Care Provider [...] (1 - 1-dose 75+ series) 2036 Meningococcal B Vaccine Aged Out No l onger eligible based on patient's age to complete this topic Meningococcal Vaccine Aged Out No roel mitchell [...]
--- OUTSIDE RECORDS SUMMARY | 2024-08-25 13:46 | XMS_ITS | Encounter Summary ---
Author Organization [facility] Facility Care Team Providers Care Dance Entertainer Name Role Phone Aleksandr Pro MD Primary Care Provider Encounter Details Date Type Department Care Team (Latest Contact Info) Description 11/14/2015 Orders Only [facility]INCONV ProviderMisa MD [address] [place] [phone] Social History Tobacco Use Types Packs/Day Years Used Date Smoking Tobacco: Never Assessed Comments Unknown Sex and Gender Information Value Date Recorded Sex Assigned at Not on file Legal Sex Female 6:48 PM [employer] Gender Identity Female 09/08/2023 7:46 PM [employer] Sexual Orientation Straight 09/08/2023 7: 46 PM [employer] documented as of this encounter Plan of [...] on filedocumented in this encounter Care Teams Dance Entertainer Relationship Specialty Start Date End Date Aleksandr Pro MD PCP - General Internal Medicine 11/12/18 documented as of this encounter
--- OUTSIDE RECORDS SUMMARY | 2024-08-25 13:46 | XMS_ITS | Data Portability ---
Author Organization [facility] JHONYSari [facility] Address [address] [facility] [facility] [place] [address] Care Team Providers Care Loader Name Role Phone SASHAWILBERTO Primary Care Provider [phone] Assessment Encounter Date Assessment Date Assessment LastModified by Organization Details LastModified Time 01/07/2024 01/07/2024 blood work continue medications MRI lumbar spinal questions answered stay up-to-date on immunizations and screenings and see me in 4-5 month Not available 02/15/2024 16:17:40 05/17/2024 05/17/2024 mammogram is scheduled for July 26, 2024. Blood pressure is controlled continue current therapy CBC CMP lipid ESR CRP A1c T3-T4 TSH she continues to have the paresthesias I need her to go back and see Neurology [email or web address] Not available 05/22/2024 20:18:30 Plan of Treatment Reminders Order Date Submit Date Provider Last Modified By Organization Details Last Modified Time Details Appointments ANY 15 2024 09:30A Yon Pro MD Not available Not available Not available Lab ESR (erythroc yte sedimenta tion rate), blood 2023 024 [email or web address] [facility], [address] [facility] [address], [place], [address], 06/07/2024 17:08:38 C reactive protein, QN, serum or plasma 2023 024 [email or web address] [facility], [address] [facility], [facility], [place], [address], 06/07/2024 17:08:38 CMP, serum or plasma 2023 024 CURT [facility], [address], [place], [address], 05/17/2024 23:21:37 CBC w/ auto diff 2023 024 [email or web address] [facility], [address], [place], [address], 06/07/2024 17:08:38 lipid panel, serum 2023 024 [email or web address] [facility], [address], [place], [address], 06/07/2024 17:08:38 TSH, ultra-sen sitive, serum 2023 024 [email or web address] [facility], [address], [place], [address], 06/07/2024 17:08:38 T3, free, serum or plasma 2023 024 [email or web address] [facility], [address], [place], [address], 06/07/2024 17:08:38 T4, free, serum 2023 024 [email or web address] [facility], [address], [place], [address], 06/07/2024 17:08:39 HbA1c (hemoglob in A1c), blood 2023 024 [email or web address] [facility], [address], [place], [address], 06/07/2024 17:08:38 HbA1c (hemoglob in A1c), blood 2023 024 CURT [facility], [address], [place], [address], 01/08/2024 08:24:05 T4, free, serum 2023 024 CURT [facility], [address] [facility], [place], [address], 01/08/2024 08:24:08 T3, free, serum or plasma 2023 024 CURT [facility], [address] [facility], [place], [address], 01/08/2024 08:24:07 TSH, ultra-sen sitive, serum 2023 024 CURT [facility], [address] [facility], [place], [address], 01/08/2024 08:24:06 lipid panel, serum 2023 024 CURT [facility], [address] [place] [address], [facility] [address], [place], [address], 01/08/2024 08:24:04 CBC w/ auto diff 2023 024 CURT [facility], [address] [facility], [facility] [address], [place], [address], 01/08/2024 08:24:06 CMP, serum or plasma 2023 024 CURT [facility], [address] [facility], [facility] [address], [place], [address], 01/08/2024 08:24:04 Referral None recorded. Procedures None recorded. Surgeries None recorded. Imaging MRI, lumbar spine, w/o contrast 2023 024 [email or web address] [facility], [address], [place], [address], 03/31/2024 15:33:44 Medication Orders None recorded. Patient TargetsNo targets recorded. Patient Instructions Encounter Date Encounter Id Patient Instructions Last Modified By Organization Details Last Modified Time 05/17/2024 [id number] A healthy lifestyle: care instructions [email or web address] Not available 05/17/2024 14:27:56 Reason for Referral None Reported. Results Created Date Observation Date Name Description Value Unit Range Abnormal Flag Note LastModifiedBy Organization Detail LastModifiedTime 01/07/2001/08/2024 LIPID PANEL cholesterol, total 188 mg/dL 100-19 9 Not Available [facility] ([facility]) [address] [place], [address], 01/08/2024 08:24:04 01/07/20 24 01/08/2024 LIPID PANEL triglyceride s 119 mg/dL 0-149 Not Available [facility] ([facility]) [address] [facility] [place], [address], 01/08/2024 08:24:04 01/07/20 24 01/08/2024 LIPID PANEL HDL cholesterol 49 mg/dL >39 Not Available [facility] ([facility]) [address] [place], [address], 01/08/2024 08:24:04 01/07/20 24 01/08/2024 LIPID PANEL VLDL cholesterol neal 21 mg/dL 5-40 Not Available [facility] ([facility]) [address] [place], [address], 01/08/2024 08:24:04 01/07/20 24 01/08/2024 LIPID PANEL LDL chol calc ([facility]) 118 mg/dL 0-99 above high normal Not Available [facility] ([facility]) [address] [place], [address], 01/08/2024 08:24:04 01/07/20 24 01/08/2024 COMP. METAB OLIC PANEL (14) glucose 86 mg/dL 70-99 Not Available [facility] ([facility]) [address] [place], [address], 01/08/2024 08:24:04 01/07/20 24 01/08/2024 COMP. METAB OLIC PANEL (14) BUN 15 mg/dL 8-27 Not Available [facility] ([facility]) [address] [place], [address], 01/08/2024 08:24:04 01/07/20 24 01/08/2024 COMP. METAB OLIC PANEL (14) creatinine 0.98 mg/dL 0.57-1 .00 Not Available [facility] ([facility]) [address] [place], [address], 01/08/2024 08:24:04 01/07/20 24 01/08/2024 COMP. METAB OLIC PANEL (14) eGFR 65 mL/mi n/1.7 3 >59 Not Available [facility] ([facility]) [address] [place], [address], 01/08/2024 08:24:04 01/07/20 24 01/08/2024 COMP. METAB OLIC PANEL (14) BUN/creatini ne ratio 15 12-28 Not Available [facility] ([facility]) [address] [facility] [place], [address], 01/08/2024 08:24:04 01/07/20 24 01/08/2024 COMP. METAB OLIC PANEL (14) sodium 143 mmol/ L 134-14 4 Not Available [facility] ([facility]) [address] [facility] [place], [address], 01/08/2024 08:24:04 01/07/20 24 01/08/2024 COMP. METAB OLIC PANEL (14) potassium 5.0 mmol/ L 3.5-5. 2 Not Available [facility] ([facility]) [address] [facility] [place], [address], 01/08/2024 08:24:04 01/07/20 24 01/08/2024 COMP. METAB OLIC PANEL (14) chloride 104 mmol/ L 96-106 Not Available [facility] ([facility]) [address] [facility] [place], [address], 01/08/2024 08:24:04 01/07/20 24 01/08/2024 COMP. METAB OLIC PANEL (14) carbon dioxide, total 27 mmol/ L 20-29 Not Available [facility] ([facility]) [address], [place], [address], 01/08/2024 08:24:04 01/07/20 24 01/08/2024 COMP. METAB OLIC PANEL (14) calcium 9.6 mg/dL 8.7-10 .3 Not Available [facility] ([facility]) [address] [place], [address], 01/08/2024 08:24:04 01/07/20 24 01/08/2024 COMP. METAB OLIC PANEL (14) protein, total 6.5 g/dL 6.0-8. 5 Not Available [facility] ([facility] [address] [facility] [place], [address], 01/08/2024 08:24:04 01/07/20 24 01/08/2024 COMP. METAB OLIC PANEL (14) albumin 4.2 g/dL 3.9-4. 9 Not Available [facility] ([facility]) [address] [facility] [place], [address], 01/08/2024 08:24:04 01/07/20 24 01/08/2024 COMP. METAB OLIC PANEL (14) globulin, total 2.3 g/dL 1.5-4. 5 Not Available [facility] ([facility] [address] [place] [place], [address], 01/08/2024 08:24:04 01/07/20 24 01/08/2024 COMP. METAB OLIC PANEL (14) bilirubin, total 0.3 mg/dL 0.0-1. 2 Not Available [facility] ([facility] [address] [place] [place], [address], 01/08/2024 08:24:04 01/07/20 24 01/08/2024 COMP. METAB OLIC PANEL (14) alkaline phosphatase 67 IU/L 44-121 Not Available [facility] ([facility]) [address] [place], [address], 01/08/2024 08:24:04 01/07/20 24 01/08/2024 COMP. METAB OLIC PANEL (14) AST (SGOT) 19 IU/L 0-40 Not Available [facility] ([facility]) [address] [place], [address], 01/08/2024 08:24:04 01/07/20 24 01/08/2024 COMP. METAB OLIC PANEL (14) ALT (SGPT) 17 IU/L 0-32 Not Available [facility] ([facility]) [address] [place], [address], 01/08/2024 08:24:04 01/07/20 24 01/08/2024 HEMOG LOBIN A1C hemoglobin A1C 5.6 % 4.8-5. 6 Predi abete s: 5.7 - 6.4 Diabe wilmer: >6.4 Glyce maninder contr ol for adult s with diabe wilmer: <7.0 Not Available [facility] ([facility]) [address] [place], [address], 01/08/2024 08:24:05 01/07/20 24 01/08/2024 TSH TSH 3.590 uIU/m L 0.450- 4.500 Not Available [facility] ([facility]) [address] [place], [address], 01/08/2024 08:24:06 01/07/20 24 01/08/2024 CBC WITH DIFFE RENTI AL/PL ATELE T WBC 8.6 x10e3 /uL 3.4-10 .8 Not Available [facility] ([facility]) [address] [place], [address], 01/08/2024 08:24:06 01/07/20 24 01/08/2024 CBC WITH DIFFE RENTI AL/PL ATELE T RBC 4.51 x10e6 /uL 3.77-5 .28 Not Available [facility] ([facility]) [address] [place], [address], 01/08/2024 08:24:06 01/07/20 24 01/08/2024 CBC WITH DIFFE RENTI AL/PL ATELE T hemoglobin 13.4 g/dL 11.1-1 5.9 Not Available [facility] ([facility]) [address] [place], [address], 01/08/2024 08:24:06 01/07/20 24 01/08/2024 CBC WITH DIFFE RENTI AL/PL ATELE T hematocrit 40.7 % 34.0-4 6.6 Not Available [facility] ([facility]) [address] [place], [address], 01/08/2024 08:24:06 01/07/20 24 01/08/2024 CBC WITH DIFFE RENTI AL/PL ATELE T MCV 90 fL 79-97 Not Available [facility] ([facility]) [address] [place], [address], 01/08/2024 08:24:06 01/07/20 24 01/08/2024 CBC WITH DIFFE RENTI AL/PL ATELE T MCH 29.7 pg 26.6-3 3.0 Not Available [facility] ([facility]) [address] [place], [address], 01/08/2024 08:24:06 01/07/20 24 01/08/2024 CBC WITH DIFFE RENTI AL/PL ATELE T MCHC 32.9 g/dL 31.5-3 5.7 Not Available [facility] ([facility]) [address] [place], [address], 01/08/2024 08:24:06 01/07/20 24 01/08/2024 CBC WITH DIFFE RENTI AL/PL ATELE T RDW 12.5 % 11.7-1 5.4 Not Available [facility] ([facility]) [address] [facility], [place], [address], 01/08/2024 08:24:06 01/07/20 24 01/08/2024 CBC WITH DIFFE RENTI AL/PL ATELE T platelets 283 x10e3 /uL 150-45 0 Not Available [facility] ([facility]) [address] [facility], [place], [address], 01/08/2024 08:24:06 01/07/20 24 01/08/2024 CBC WITH DIFFE RENTI AL/PL ATELE T neutrophils 52 % notest ab. Not Available [facility] ([facility]) [address] [facility], [place], [address], 01/08/2024 08:24:06 01/07/20 24 01/08/2024 CBC WITH DIFFE RENTI AL/PL ATELE T lymphs 35 % notest ab. Not Available [facility] ([facility]) [address] [facility], [place], [address], 01/08/2024 08:24:06 01/07/20 24 01/08/2024 CBC WITH DIFFE RENTI AL/PL ATELE T monocytes 9 % notest ab. Not Available [facility] ([facility]) [address] [facility], [place], [address], 01/08/2024 08:24:06 01/07/20 24 01/08/2024 CBC WITH DIFFE RENTI AL/PL ATELE T eos 3 % notest ab. Not Available [facility] ([facility]) [address] [facility], [place], [address], 01/08/2024 08:24:06 01/07/20 24 01/08/2024 CBC WITH DIFFE RENTI AL/PL ATELE T basos 1 % notest ab. Not Available [facility] ([facility]) [address] [place], [address], 01/08/2024 08:24:06 01/07/20 24 01/08/2024 CBC WITH DIFFE RENTI AL/PL ATELE T neutrophils (absolute) 4.5 x10e3 /uL 1.4-7. 0 Not Available [facility] ([facility]) [address] [facility], [place], [address], 01/08/2024 08:24:06 01/07/20 24 01/08/2024 CBC WITH DIFFE RENTI AL/PL ATELE T lymphs (absolute) 3.0 x10e3 /uL 0.7-3. 1 Not Available [facility] ([facility]) [address] [place], [address], 01/08/2024 08:24:06 01/07/20 24 01/08/2024 CBC WITH DIFFE RENTI AL/PL ATELE T monocytes(ab solute) 0.7 x10e3 /uL 0.1-0. 9 Not Available [facility] ([facility]) [address] [place], [address], 01/08/2024 08:24:06 01/07/20 24 01/08/2024 CBC WITH DIFFE RENTI AL/PL ATELE T eos (absolute) 0.3 x10e3 /uL 0.0-0. 4 Not Available [facility] ([facility]) [address] [place], [address], 01/08/2024 08:24:06 01/07/20 24 01/08/2024 CBC WITH DIFFE RENTI AL/PL ATELE T baso (absolute) 0.1 x10e3 /uL 0.0-0. 2 Not Available [facility] ([facility]) [address] [place], [address], 01/08/2024 08:24:06 01/07/20 24 01/08/2024 CBC WITH DIFFE RENTI AL/PL ATELE T immature granulocytes 0 % notest ab. Not Available [facility] ([facility]) [address] [facility], [place], [address], 01/08/2024 08:24:06 01/07/20 24 01/08/2024 CBC WITH DIFFE RENTI AL/PL ATELE T immature grans (abs) 0.0 x10e3 /uL 0.0-0. 1 Not Available [facility] ([facility]) [address] [facility], [place], [address], 01/08/2024 08:24:06 01/07/20 24 01/08/2024 TRIIO DOTHY SEBASTIAN E (T3), FREE triiodothyro nine (T3), free 2.6 pg/mL 2.0-4. 4 Not Available [facility] ([facility]) [address] [facility], [place], [address], 01/08/2024 08:24:07 01/07/20 24 01/08/2024 T4,FR EE(DI RECT) T4,free(dire ct) 0.97 NG/dL 0.82-1 .77 Not Available [facility] ([facility]) [address] [place], [address], 01/08/2024 08:24:08 03/02/20 24 10/29/2021 colon oscop y proce dure (PROC ) No observ ation record ed. BARCODE Not Available 2023 10:42:02 03/02/20 24 03/20/2022 MAMMO , scree evie, digit al, bilat eral No observ ation record ed. BARCODE Not Available 2023 10:42:02 07/26/19 25 07/26/2024 injec tion/ aspir ation large joint /burs a (PROC ) No observ ation record ed. [facility] [address], [place], [address], 07/28/2024 15:25:33 07/27/19 25 07/26/2024 MAMMO , scree evie, digit al, bilat eral No observ ation record ed. [facility] [address], [place], [address], 07/28/2024 15:25:12 07/27/19 25 07/26/2024 MAMMO , scree evei, digit al, bilat eral No observ ation record ed. [facility] [address], [place], [address], 07/28/2024 15:24:55 Result Notes None recorded. Problems Name Problem SNOMED Code Status Onset Date Resolution Date Notes Provider Name and Address Organization Details Recorded Time Chronic low back pain 904236858 Active 2023 Nathaniel Edwards MA null, [place] - [facility] 4 16:00:05 Essential hypertension 77241538 Active 2023 Nathaniel Edwards [place] [facility] 4 16:00:06 Hyperlipidemia 84339416 Active 2023 Nathaniel Edwards [place], [place] [facility] 4 16:00:07 Type 2 diabetes mellitus 55930717 Active 2023 Nathaniel Edwards [place], [place] [facility] 4 16:00:08 Problem Notes None recorded. Procedures Surgical History Date Name Laterality Status Provider Name and Address Organization Details Recorded Time 07/07/18 97 Total hysterectomy completed Rekha Anderson MA [place] - [facility] 01/07/2024 15:18:43 Imaging Results Imaging Date Name Status [facility] Details LastModified Time 10/29/2021 colonoscopy procedure (PROC) completed [facility] Information not available 03/02/2024 10:42:02 03/20/2022 MAMMO, screening, digital, bilateral completed [facility] Information not available 03/02/2024 10:42:02 07/26/2024 injection/aspir ation large joint/bursa (PROC) completed [facility] [address], [place], [address], 07/28/2024 15:25:33 07/26/2024 MAMMO, screening, digital, bilateral completed [facility] [address], [place], [address], 07/28/2024 15:25:12 07/26/2024 MAMMO, screening, digital, bilateral completed [facility] [address], [place], [address], 07/28/2024 15:24:55 Procedure Notes None recorded. Medical [...] t Available Vitals Date Recorded Body height Body mass index (BMI) Body weight Heart rate Oxygen saturation Oxygen saturation in Arterial blood by Pulse oximetry Systolic blood pressure Diastolic blood pressure Provider Name and Address Organization Details Last Updated DateTime 4 165.1 cm 33 kg/m2 11914.0 1 g 81 /min 97 % 97 % 122 mm[Hg] 70 mm[Hg] Rekha Anderson MA [facility] 4 15:21:28 Date Recorded Body height Body mass index (BMI) Body weight Heart rate Oxygen saturation Oxygen saturation in Arterial blood by Pulse oximetry Systolic blood pressure Diastolic blood pressure Provider Name and Address Organization Details Last Updated DateTime 4 165.1 cm 33.2 kg/m2 52812.7 6 g 78 /min 98 % 98 % 134 mm[Hg] 70 mm[Hg] Rekha Anderson MA [place] - [facility] 4 11:42:48 Social History Question Answer Notes LastModified by Organizat ion Details LastModified Time Tobacco Smoking Status Former Smoker Rekha Anderson MA [facility], [facility] 01/07/2024 15:17:26 Do You Have An Advance [...] Anxious, Or Unable To Sleep At Night)? [id number] Information not available 01/07/2024 Do You Use [...] Immunizations Vaccine Type Date Status Note Provider Nam e and Address Organization Details Recorded Time Influenza, split virus, quadrivalent, preservative 7 completed Nathaniel Edwards [place], [place] [facility] 01/07/2024 15:32:54 Influenza, split virus, quadrivalent, preservative 6 completed Nathaniel Edwards [place], [place] [facility] 01/07/2024 15:32:54 Influenza, split virus, quadrivalent, preservative [...] PF, kade-sucrose, 30 mcg/0.3 mL 3 completed ILYA [place] [facility] 01/07/2024 15:32:54 Pneumococcal conjugate PCV 13 5 completed IL[place] [facility] 01/07/2024 [...] Influenza, split virus, quadrivalent, PF 8 completed Nathaniel Edwards [place] [facility] 01/07/2024 15:32:54 Influenza, split virus, quadrivalent, PF 2 completed Nathaniel Edwards [place] [facility] 01/07/2024 15:32:54 Influenza, split virus, quadrivalent, PF 1 completed Nathaniel Edwards [place] [facility] 01/07/2024 15:32:54 Influenza, split virus, quadrivalent, PF 0 completed Nathaniel Edwards MA null, [place] - [facility] 01/07/2024 15:32:54 Influenza, split virus, trivalent, PF 4 completed Rekha Anderson MA null, [place] - [facility] 05/17/2024 11:38:34 Past Encounters Encounter ID Performer Location Encounter Start Date Encounter Closed Date Diagnosis/Indication Diagnosis SNOMED-CT Code Diagnosis ICD10 Code Diagnosis Note [id number] Wilberto Pro MD [facility] (Adult Med) [address] [place] [address] 01/07/2024 14:58:00 01/07/2024 16:05:43 Essential hypertension 65258037 I10 Hyperlipidemia 89840177 E78.5 Type 2 home betes mellitus 40793118 E11.9 Chronic low back pain 27 6055916 M54.50 [id number] Wilberto Pro MD [facility] [place] [address] [place] [address] 05/17/2024 11:04:13 05/17/2024 12:25:10 Obesity 497947727 E66.9 Essential hypertension 64787339 I10 Hyperlipidemia 17422425 E78.5 Diabetes m ellitus screening 807369342 Z13.1 Paresthesia 41711794 R20 .2 Hypothyroidism 97542693 E03.9 Health Concerns Section Related Observation LastModified by Organization Detai ls LastModified Time None Recorded Concern Status LastModified by Organization Details LastModified Time None Recorded Advance Directives Directive N: Payers Encounter Date Sequence Insurance Name Policy Number Policy Moe Covered Member ID Moe Member ID Guarantor Name 01/07/2024 1 [place] [id number] Qiana Chito-E lliott [id number] Qiana Chito-Ell iott 01/07/2024 2 [place] [id number] Silvestre Laird [id number] Qiana Chito-Ell iott 05/17/2024 1 [place] [id number] Qiana Chito-E lliott [id number] Qiana Chito-Ell iott 05/17/2024 2 [place] [id number] Silvestre Puenteiott [id number] Qiana gilbert Notes Date Note Type Note Provider Name [...] function Wilberto Pro MD Attn: [address] [place], [address], [facility] 02/15/2024 16:18:04 05/17/2024 text/html GERD stable no nausea no vomiting anxiety has been doing fine on sertraline no side effects hypothyroidism no heat or cold intolerance. Obesity good results a GLP 1 facial numbness has seen Neurology they put her on nortriptyline Wilberto Pro MD Attn: [address] [place], [address], [facility] 05/22/2024 20:18:52 OBGyn Episode No OBEpisode recorded.
--- OUTSIDE RECORDS SUMMARY | 2024-08-25 13:47 | XMS_ITS | Data Portability ---
Author Organization [place] [employer], Main Office Address [address] [place] [address] Care Team Providers Care Client Associate Name Role Phone WILBERTO PRO Primary Care Provider [phone] WILBERTO PRO Referring Provider [phone] Assessment Encounter Date Assessment Date Assessment LastModified by Organization Details LastModified Time 11/07/2022 11/07/2022 Patient returns after MRI scan left shoulder it. I reviewed the images and the report with the patient. It demonstrates evidence of prior comminuted fracture of the anterior-inferior glenoid with minimal residual impaction best seen on parasagittal images 1101-13 and 14. There is loss of cartilage inferior humeral head and loss of cartilage inferior glenoid indicative of mild posttraumatic arthritis there. There is also diffuse tendinopathy of the upper subscapularis the supraspinatus and the infraspinatus tendons most severe involving the supraspinatus tendon with mid substance higher signal intensity diffusely which can be associated with the company interstitial partial-thickness tearing and there are some shallow bursal sided surface tears as well. No evidence of full-thickness tear or high-grade partial-thickness tear from the tuberosity. The long head of the biceps looks perfectly normal in the bicipital groove. I cannot characterize the intra-articular portion of long head of biceps however this was discussed with the patient. Patient was sent for physical therapy at last visit and given a Medrol Dosepak. The Medrol Dosepak did not help the physical therapy did not help so she called us to order the MRI scan which was done. Prior to this she has used Celebrex and Motrin 800 mg both causing mild improvement in her symptoms. She does not feel 1 helped better than the other. Patient does computer work all day. On exam today she has pain with both parts of 2 part Joes's test in the anterolateral shoulder as well as pain with speed's maneuver anterolateral shoulder. On abduction strength testing she has mild weakness with pain lateral leung deltoid area elevation 140 with moderate pain lateral deltoid area external rotation 60 the same pain internal rotation was T11 without significant discomfort. She had 5/5 external rotation about press strength. Impression patient has early posttraumatic arthritis of left shoulder related to her injury presumably that was 36 years ago when she fell on the shoulder and has had soreness in the shoulder off and on ever since. Secondly she has diffuse rotator cuff tendinopathy with mid substance higher signal intensity in the supraspinatus that may be associated with some interstitial partial-thickness tearing as well. There is some surface bursal sided shallow erosions in the tendon also. I have discussed options with her. There is no clear-cut surgical indication at this point. I would not rule out the possibility of a diagnostic arthroscopy with debridement has possibly labral degeneration or intra-articular long of the biceps degenerative tearing could be present which could possibly be improved with debridement or biceps tenotomy or tenodesis. This would be unpredictable. I have recommended trying a cortisone injection into the glenohumeral joint under image guidance by the radiologist and will prescribe Celebrex 200 mg daily. Possible side effects were discussed. She has tolerated before has no history of kidney liver problems or peptic ulcer disease. I will see her back in 6 weeks assess her progress. I would like her to continue with her home exercise program working on scapular kinematics and posture. 30 minutes were spent in total care this patient more than half the time spent in [id number] care. [email or web address] Not available 11/07/2022 09:38:59 12/19/2022 12/19/2022 HPI: Patient returns. She is here for follow-up of left shoulder. she had fluoroscopic guided cortisone injection into the glenohumeral joint on 11/26. She thinks that it did help. She is able sleep at night now without waking up in pain. She has not been taking the Celebrex daily. She takes it intermittently. She still notices some pain in the biceps muscle belly area with certain motions, particularly internal rotation. The soreness and pain that she was having deep in the shoulder seems to have improved quite a bit. She does have mild degree of pain on a daily basis but overall is very tolerable. Physical exam: Patient has elevation 145 of the left shoulder and external rotation 80 internal rotation is to T11. She has some minimal discomfort with internal rotation. 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 She again her MRI scan showed no definite pathology. She feels at this point her symptoms are very tolerable. We talked about avoiding activities that may aggravate shoulder particularly overhead activities. She is going to try to modify things to try to do this. she asked about repeat cortisone injections in the future and we talked about it needs to be a minimum of 3 months. Hopefully she will need them less frequently than that. She does have early osteoarthritis in the shoulder joint and this will progress over time and we discussed this briefly as well. This point she is comfortable in will see her back as needed [email or web address] Not available 12/19/2022 09:15:36 01/06/2023 01/06/2023 Please see wellness she also continue current therapy labs from October reviewed follow-up in 6 months all questions answered [email or web address] Not available 01/18/2023 16:55:10 05/07/2023 05/07/2023 Neuro exam appears normal opinion and neurology consultation hold off on MRI in testing and let them decide what they want to do [email or web address] Not available 05/11/2023 11:15:29 06/04/2023 06/04/2023 Continue current therapy follow-up 5 months [email or web address] Not available 06/04/2023 21:35:15 Plan of Treatment Reminders Order Date Submit Date Provider Last Modified By Organization Details Last Modified Time Details Appointments None recorded. Lab None recorded. Referral neurologica l surgeon referral 2022 023 qi Amaya, [address], [address], [place], [address], 11:01:54 Procedures None recorded. Surgeries None recorded. Imaging None recorded. Medication Orders Ozempic 2 mg/dose (8 mg/3 mL) subcutaneou s pen injector 2022 023 [email or web address] [facility], [address] [place] [address], [place], [address], 21:34:06 sertraline 50 mg tablet 2022 023 [email or web address] [facility], [address] [place] [address], [address], 17:32:12 levothyroxi ne 25 mcg tablet 2022 023 [email or web address] [facility], [address] [place] [address], [id number], 3 17:32:12 Celebrex 200 mg capsule 2022 023 [email or web address] [id number], [address] [facility], [place], [place], [id number], 16:44:43 Patient TargetsNo targets recorded. Patient Instructions Encounter Date Encounter Id Patient Instructions Last Modified By Organization Details Last Modified Time 01/06/2023 [id number] advance care planning: care instructions [email or web address] Not available 01/18/2023 16:55:41 advance directives: care instructions Not available 01/18/2023 16:55:41 [place] Advance Directives Not available 01/18/2023 16:55:41 risk assessment* [email or web address] Not available 01/18/2023 16:55:41 INFLUENZA VACCIN E Recommended today, but patient declined Ordered Patient will get at local pharmacy/health department TD/TDAP Recommended today, patient declined Ordered Patient will get at local pharmacy/health department PNEUMONIA VACCINE Ordered Recommend ed today, patient declined Patient will get at local pharmacy/health department Recomm ended at age 66 SHINGLES Ordered Recommend ed today, patient declined Patient will get at local pharmacy/health department MAMMOGRAM: Last Mammogram___03/28_ DEXA SCAN No screening necessary patient is up to date CERVICAL SCREENING/PELVIC EXAMINATION Recommended today, but patient declined Ordered No screening necessary patient is up to date COLORECTAL SCREENING: Last Colonoscopy No screening necessary patient is up to date DEPRESSION SCREENING Negative BMI Overweight Approp riate Underweight Obesity continue your current weight loss efforts try to lose 5% of your body weight try to lose 10% of your body weight try to lose 15% of your body weight NUTRITION Heart Healthy Diet Recommendati on of a 1500 caloric intake for weight loss is advised PHYSICAL ACTIVITY Need more exercise/physical activity minimum of 10-20 minutes of activity that causes mild breathlessness/da y minimum of 20-30 minutes activity that causes mild breathlessness/da y VISION ALCOHOL USE No alcohol use Occasional/So cial Use TOBACCO USE former smoker LUNG CANCER SCREENING Non Smoker-not indicated SEXUALLY ACTIVE Yes, Patient is in monogamous relationship HEPATITIS C SCREENING Not indicated GLUCOSE SCREENING Ordered Not needed LIPID SCREENING Ordered Not needed [email or web address] Not available 01/06/2023 12:58:50 Reason for Referral Neurological Surgeon Oscar walsh for Neck pain Referring Physician: Wilberto Pro, Internal Medicine, Encounter Date: 05/07/2023 Results Created Date Observation Date Name Description Value Unit Range Abnormal Flag Note LastModifiedBy Organization Detail LastModifiedTime 10/24/1910/23/2022 CBC/C OMPLE TE BLD COUNT W/DIF F white blood cells 7.8 x10'3 /uL 4.2-10 .8 Not Available [facility] (Lab) [address] [place], [address], 10/23/2022 16:55:46 10/24/19 23 10/23/2022 CBC/C OMPLE TE BLD COUNT W/DIF F red blood cells 4.22 x10'6 /uL 3.80-5 .20 Not Available [facility] (Lab) [address] [place], [address], 10/23/2022 16:55:46 10/24/19 23 10/23/2022 CBC/C OMPLE TE BLD COUNT W/DIF F hemoglobin 12.8 g/dL 12.0-1 5.6 Not Available [facility] (Lab) [address] [place], [address], 10/23/2022 16:55:46 10/24/19 23 10/23/2022 CBC/C OMPLE TE BLD COUNT W/DIF F hematocrit 39.2 % 35.7-4 5.7 Not Available [facility] (Lab) [address] [place], [address], 10/23/2022 16:55:46 10/24/19 23 10/23/2022 CBC/C OMPLE TE BLD COUNT W/DIF F mean red cell volume 92.9 fL 82.0-9 9.0 Not Available [facility] (Lab) [address] [place], [address], 10/23/2022 16:55:46 10/24/19 23 10/23/2022 CBC/C OMPLE TE BLD COUNT W/DIF F mean red cell hemoglobin 30.3 pg 27.0-3 3.0 Not Available [facility] (Lab) [address] [place], [address], 10/23/2022 16:55:46 10/24/19 23 10/23/2022 CBC/C OMPLE TE BLD COUNT W/DIF F mean RBC HGB concentratio n 32.7 g/dL 31.0-3 6.0 Not Available [facility] (Lab) [address] [place], [address], 10/23/2022 16:55:46 10/24/19 23 10/23/2022 CBC/C OMPLE TE BLD COUNT W/DIF F red cell distribution width 13.4 % 11.8-1 5.5 Not Available [facility] (Lab) [address] [place], [address], 10/23/2022 16:55:46 10/24/19 23 10/23/2022 CBC/C OMPLE TE BLD COUNT W/DIF F platelets 281 x10'3 /uL 150-40 0 Not Available [facility] (Lab) [address] [place], [address], 10/23/2022 16:55:46 10/24/19 23 10/23/2022 CBC/C OMPLE TE BLD COUNT W/DIF F mean platelet volume 11.2 fL 9.0-12 .4 Not Available [facility] (Lab) [address] [place], [address], 10/23/2022 16:55:46 10/24/19 23 10/23/2022 CBC/C OMPLE TE BLD COUNT W/DIF F neutrophils 45.7 % 39.0-7 2.0 Not Available [facility] (Lab) [address] [place], [address], 10/23/2022 16:55:46 10/24/19 23 10/23/2022 CBC/C OMPLE TE BLD COUNT W/DIF F lymphocytes 41.3 % 16.0-4 7.0 Not Available [facility] (Lab) [address] [place], [address], 10/23/2022 16:55:46 10/24/19 23 10/23/2022 CBC/C OMPLE TE BLD COUNT W/DIF F monocytes 8.6 % 5.0-12 .0 Not Available [facility] (Lab) [address] [place], [address], 10/23/2022 16:55:46 10/24/19 23 10/23/2022 CBC/C OMPLE TE BLD COUNT W/DIF F eosinophils 3.1 % 1.0-7. 0 Not Available [facility] (Lab) [address] [place], [address], 10/23/2022 16:55:46 10/24/19 23 10/23/2022 CBC/C OMPLE TE BLD COUNT W/DIF F basophils 1.0 % 0.0-2. 0 Not Available [facility] (Lab) [address] [place], [address], 10/23/2022 16:55:46 10/24/19 23 10/23/2022 CBC/C OMPLE TE BLD COUNT W/DIF F immature granulocytes 0.3 % 0.00-0 .50 Not Available [facility] (Lab) [address] [place], [address], 10/23/2022 16:55:46 10/24/19 23 10/23/2022 CBC/C OMPLE TE BLD COUNT W/DIF F neutrophils, absolute count 3.58 x10'3 /uL 1.5-8. 0 Not Available [facility] (Lab) [address] [place], [address], 10/23/2022 16:55:46 10/24/19 23 10/23/2022 CBC/C OMPLE TE BLD COUNT W/DIF F lymphocytes, absolute count 3.23 x10'3 /uL 1.07-3 .43 Not Available [facility] (Lab) [address] [place], [address], 10/23/2022 16:55:46 10/24/19 23 10/23/2022 CBC/C OMPLE TE BLD COUNT W/DIF F monocytes, absolute count 0.67 x10'3 /uL 0.29-0 .99 Not Available [facility] (Lab) [address] [place], [address], 10/23/2022 16:55:46 10/24/19 23 10/23/2022 CBC/C OMPLE TE BLD COUNT W/DIF F eosinophils, absolute count 0.24 x10'3 /uL 0.02-0 .53 Not Available [facility] (Lab) [address] [place], [address], 10/23/2022 16:55:46 10/24/19 23 10/23/2022 CBC/C OMPLE TE BLD COUNT W/DIF F basophils, absolute count 0.08 x10'3 /uL 0.01-0 .08 Not Available [facility] (Lab) [address] [place], [address], 10/23/2022 16:55:46 10/24/19 23 10/23/2022 CBC/C OMPLE TE BLD COUNT W/DIF F immature granulocytes ,absolute 0.02 x10'3 /uL 0.00-0 .05 Not Available [facility] (Lab) [address] [place], [address], 10/23/2022 16:55:46 10/24/19 23 10/23/2022 CBC/C OMPLE TE BLD COUNT W/DIF F nucleated red blood cells 0.0 % -0 Not Available [facility] (Lab) [address] [place], [address], 10/23/2022 16:55:46 10/24/19 23 10/23/2022 CBC/C OMPLE TE BLD COUNT W/DIF F NRBC# 0.00 x10'3 /uL Not Available [facility] (Lab) [address] [place], [address], 10/23/2022 16:55:46 10/24/19 23 10/23/2022 COMPR EHENS CINTHYA METAB OLIC PANEL sodium 140 mmol/ L 137-14 5 Not Available [facility] (Lab) [address] [place], [address], 10/23/2022 17:42:58 10/24/19 23 10/23/2022 COMPR EHENS CINTHYA METAB OLIC PANEL potassium 3.7 mmol/ L 3.5-5. 1 Not Available [facility] (Lab) [address] [place], [address], 10/23/2022 17:42:58 10/24/19 23 10/23/2022 COMPR EHENS CINTHYA METAB OLIC PANEL chloride 104 mmol/ L 98-107 Not Available [facility] (Lab) [address] [place], [address], 10/23/2022 17:42:58 10/24/19 23 10/23/2022 COMPR EHENS CINTHYA METAB OLIC PANEL carbon dioxide 29 mmol/ L 22-30 Not Available [facility] (Lab) [address] [place], [address], 10/23/2022 17:42:58 10/24/19 23 10/23/2022 COMPR EHENS CINTHYA METAB OLIC PANEL anion gap 10.7 mmol/ L 14-22 low Not Available [facility] (Lab) [address] [place], [address], 10/23/2022 17:42:58 10/24/19 23 10/23/2022 COMPR EHENS CINTHYA METAB OLIC PANEL glucose 84 mg/dL 70-99 Not Available [facility] (Lab) [address] [place], [address], 10/23/2022 17:42:58 10/24/19 23 10/23/2022 COMPR EHENS CINTHYA METAB OLIC PANEL BUN 14 mg/dL 8-19 Not Available [facility] (Lab) [address] [place], [address], 10/23/2022 17:42:58 10/24/19 23 10/23/2022 COMPR EHENS CINTHYA METAB OLIC PANEL creatinine 0.74 mg/dL 0.66-1 .25 Not Available [facility] (Lab) [address] [place], [address], 10/23/2022 17:42:58 10/24/19 23 10/23/2022 COMPR EHENS CINTHYA METAB OLIC PANEL GFR >60 Refer ence Range : [place] ge GFR Healt hy Adult : >60 mL/mi n/1.7 3 m2 Chron ic Kidne y Disea se: 15-60 mL/mi n/1.7 3 m2 Kidne y Failu re: <15/m L/min /1.73 m2 www.n iddk. nih.g ov The MDRD study equat ion has not been valid ated in child alicia <18 years of age; pregn ant women ; the elder ly >85 years of age; or in some racia l or ethni c subgr oups, such as Hismadison nics. Outsi de the valid ated rosemary eters , estim ated GFR is less accur ate, requi ring clini neal judgm ent on a case- by-ca se basis . Clini neal inter preta tion for other races and ages must be made by the clini sandro. The MDRD study equat ion has not been valid ated for the evalu ation of serum creat inine relat ed to nutri luz elena l statu s or medic ation usage . For perso ns <18 years of age, a pedia tric GFR calcu lator is avail able on the [facility] websi te: [email or web address] :[email or web address] [email or web address] [email or web address] rg/pr ofess ional s/kdo qi/gf r_cal culat or Not Available [facility] (Lab) [address] [place], [address], 10/23/2022 17:42:58 10/24/19 23 10/23/2022 COMPR EHENS CINTHYA METAB OLIC PANEL alkaline phosphatase 56 U/L 38-126 Not Available [facility] (Lab) [address] [place], [address], 10/23/2022 17:42:58 10/24/19 23 10/23/2022 COMPR EHENS CINTHYA METAB OLIC PANEL alanine aminotransfe rase 23 U/L 0-35 Not Available [facility] (Lab) [address] [place], [address], 10/23/2022 17:42:58 10/24/19 23 10/23/2022 COMPR EHENS CINTHYA METAB OLIC PANEL aspartate aminotransfe rase 28 U/L 15-37 Not Available [facility] (Lab) [address] [place], [address], 10/23/2022 17:42:58 10/24/19 23 10/23/2022 COMPR EHENS CINTHYA METAB OLIC PANEL bilirubin, total 0.60 mg/dL 0.20-1 .30 Not Available [facility] (Lab) [address] [place], [address], 10/23/2022 17:42:58 10/24/19 23 10/23/2022 COMPR EHENS CINTHYA METAB OLIC PANEL calcium 9.1 mg/dL 8.4-10 .2 Not Available [facility] (Lab) [address] [place], [address], 10/23/2022 17:42:58 10/24/19 23 10/23/2022 COMPR EHENS CINTHYA METAB OLIC PANEL total protein 6.9 g/dL 6.3-8. 2 Not Available [facility] (Lab) [address] [place], [address], 10/23/2022 17:42:58 10/24/19 23 10/23/2022 COMPR EHENS CINTHYA METAB OLIC PANEL albumin 4.2 g/dL 3.4-5. 0 Not Available [facility] (Lab) [address] [place], [address], 10/23/2022 17:42:58 10/24/19 23 10/23/2022 COMPR EHENS CINTHYA METAB OLIC PANEL globulin 2.7 g/dL 2.6-4. 2 Not Available [facility] (Lab) [address] [facility] [place], [address], 10/23/2022 17:42:58 10/24/19 23 10/23/2022 COMPR EHENS CINTHYA METAB OLIC PANEL A/G ratio 1.6 ratio 1.0-2. 0 Not Available [facility] (Lab) [address] [place], [address], 10/23/2022 17:42:58 10/24/19 23 10/23/2022 LIPID PANEL cholesterol 189 mg/dL 140-19 9 NIH SREEDHAR NSUS RECOM MENDA TION FOR BOBBY STERO L: ADULT CHILD LOW RISK: <200 <170 BORDE RLINE : <200- 239 ----- HIGH RISK: >240 >200 Not Available [facility] (Lab) [address] [place], [address], 10/23/2022 17:43:00 10/24/19 23 10/23/2022 LIPID PANEL triglyceride s 90 mg/dL 0-150 NIH SREEDHAR NSUS REPOR T RECOM MENDA TION FOR TRIGL YCERI JIA: ADULT CHILD LOW RISK: <150 ----- BODER LINE: 150-1 99 ----- HIGH RISK: >200 ----- Not Available [facility] (Lab) [address] [place], [address], 10/23/2022 17:43:00 10/24/19 23 10/23/2022 LIPID PANEL HDL cholesterol 49 mg/dL 40- Not Available [facility] (Lab) [address] [place], [address], 10/23/2022 17:43:00 10/24/19 23 10/23/2022 LIPID PANEL LDL cholesterol, calculated 122 mg/dL 0-130 NIH SREEDHAR NSUS REPOR T RECOM MENDA TIONS FOR LDL: ADULT CHILD LOW RISK <130 <110 (OPTI MAL LDL) <100 ----- BORDE RLINE : 130-1 59 ----- HIGH RISK: >160 >130 A TRIGL YCERI DE RESUL T >400 INVAL IDATE S THE CALCU LATIO N FOR LDL FRACT IONAT ION - THE LDL RESUL T WILL NOT BE REPOR JUANCARLOS. Not Available [facility] (Lab) [address] [place], [address], 10/23/2022 17:43:00 10/24/19 23 10/23/2022 T4 FREE free T4 1.00 NG/dL 0.78-2 .19 Not Available [facility] (Lab) [address] [place], [address], 10/23/2022 18:20:26 10/24/19 23 10/23/2022 T3 FREE free T3 2.9 pg/mL 2.77-5 .27 Not Available [facility] (Lab) [address] [place], [address], 10/23/2022 18:20:28 10/24/19 23 10/23/2022 TSH thyroid-stim ulating hormone 4.470 uIU/m L 0.465- 4.680 Not Available [facility] (Lab) [address] [place], [address], 10/23/2022 18:21:22 10/24/19 23 10/23/2022 HEMOG LOBIN A1C HA1C 5.5 % 4.0-6. 0 Diabe wilmer Scree evie Crite annemarie: <5.7% Consi stent with absen ce of diabe wilmer 5.7-6 .4% Consi stent with incre ased risk for diabe wilmer (pred iabet es) >OR=6 .5% Consi stent with diabe wilmer REFER ENCE: Diabe wilmer Care 2016, 39(Imllan ppl.1 ):s13 -s22 Not Available [facility] (Lab) [address] [place], [address], 10/23/2022 19:38:11 05/08/20 23 05/08/2023 COMPR EHENS CINTHYA METAB OLIC PANEL sodium 139 mmol/ L 137-14 5 Not Available [facility] (Lab) [address] [place], [address], 05/08/2023 18:22:57 05/08/20 23 05/08/2023 COMPR EHENS CINTHYA METAB OLIC PANEL potassium 3.9 mmol/ L 3.5-5. 1 Not Available [facility] (Lab) [address] [place], [address], 05/08/2023 18:22:57 05/08/20 23 05/08/2023 COMPR EHENS CINTHYA METAB OLIC PANEL chloride 104 mmol/ L 98-107 Not Available [facility] (Lab) [address] [place], [address], 05/08/2023 18:22:57 05/08/20 23 05/08/2023 COMPR EHENS CINTHYA METAB OLIC PANEL carbon dioxide 32 mmol/ L 22-30 high Not Available [facility] (Lab) [address] [place], [address], 05/08/2023 18:22:57 05/08/20 23 05/08/2023 COMPR EHENS CINTHYA METAB OLIC PANEL anion gap 6.9 mmol/ L 14-22 low Not Available [facility] (Lab) [address] [place], [address], 05/08/2023 18:22:57 05/08/20 23 05/08/2023 COMPR EHENS CINTHYA METAB OLIC PANEL glucose 78 mg/dL 70-99 Not Available [facility] (Lab) [address] [place], [address], 05/08/2023 18:22:57 05/08/20 23 05/08/2023 COMPR EHENS CINTHYA METAB OLIC PANEL BUN 13 mg/dL 8-19 Not Available [facility] (Lab) [address] [place], [address], 05/08/2023 18:22:57 05/08/20 23 05/08/2023 COMPR EHENS CINTHYA METAB OLIC PANEL creatinine 1.10 mg/dL 0.66-1 .25 Not Available [facility] (Lab) [address] [place], [address], 05/08/2023 18:22:57 05/08/20 23 05/08/2023 COMPR EHENS CINTHYA METAB OLIC PANEL GFR 50 Refer ence Range : [place] ge GFR Healt hy Adult : >60 mL/mi n/1.7 3 m2 Chron ic Kidne y Disea se: 15-60 mL/mi n/1.7 3 m2 Kidne y Failu re: <15/m L/min /1.73 m2 www.n iddk. nih.g ov The MDRD study equat ion has not been valid ated in child alicia <18 years of age; pregn ant women ; the elder ly >85 years of age; or in some racia l or ethni c subgr oups, such as Hispa nics. Outsi de the valid ated rosemary eters , estim ated GFR is less accur ate, requi ring clini neal judgm ent on a case- by-ca se basis . Clini neal inter preta tion for other races and ages must be made by the clini sandro. The MDRD study equat ion has not been valid ated for the evalu ation of serum creat inine relat ed to nutri luz elena l statu s or medic ation usage . For perso ns <18 years of age, a pedia tric GFR calcu lator is avail able on the [facility] websi te: https :[email or web address] [email or web address] [email or web address] rg/pr ofess ional s/kdo qi/gf r_cal culat or Not Available [facility] (Lab) [address] [place], [address], 05/08/2023 18:22:57 05/08/20 23 05/08/2023 COMPR EHENS CINTHYA METAB OLIC PANEL alkaline phosphatase 59 U/L 38-126 Not Available [facility] (Lab) [address] [place], [address], 05/08/2023 18:22:57 05/08/20 23 05/08/2023 COMPR EHENS CINTHYA METAB OLIC PANEL alanine aminotransfe rase 21 U/L 0-35 Not Available [facility] (Lab) [address] [place], [address], 05/08/2023 18:22:57 05/08/20 23 05/08/2023 COMPR EHENS CINTHYA METAB OLIC PANEL aspartate aminotransfe rase 25 U/L 15-37 Not Available [facility] (Lab) [address] [place], [address], 05/08/2023 18:22:57 05/08/20 23 05/08/2023 COMPR EHENS CINTHYA METAB OLIC PANEL bilirubin, total 0.40 mg/dL 0.20-1 .30 Not Available [facility] (Lab) [address] [place], [address], 05/08/2023 18:22:57 05/08/20 23 05/08/2023 COMPR EHENS CINTHYA METAB OLIC PANEL calcium 9.3 mg/dL 8.4-10 .2 Not Available [facility] (Lab) [address] [place], [address], 05/08/2023 18:22:57 05/08/20 23 05/08/2023 COMPR EHENS CINTHYA METAB OLIC PANEL total protein 6.6 g/dL 6.3-8. 2 Not Available [facility] (Lab) [address] [place], [address], 05/08/2023 18:22:57 05/08/20 23 05/08/2023 COMPR EHENS CINTHYA METAB OLIC PANEL albumin 3.7 g/dL 3.4-5. 0 Not Available [facility] (Lab) [address] [place], [address], 05/08/2023 18:22:57 05/08/20 23 05/08/2023 COMPR EHENS CINTHYA METAB OLIC PANEL globulin 2.9 g/dL 2.6-4. 2 Not Available [facility] (Lab) [address] [place], [address], 05/08/2023 18:22:57 05/08/20 23 05/08/2023 COMPR EHENS CINTHYA METAB OLIC PANEL A/G ratio 1.3 ratio 1.0-2. 0 Not Available [facility] (Lab) [address] [place], [address], 05/08/2023 18:22:57 05/08/2005/08/2023 LIPID PANEL cholesterol 185 mg/dL 140-19 9 NIH SREEDHAR NSUS RECOM MENDA TION FOR BOBBY STERO L: ADULT CHILD LOW RISK: <200 <170 BORDE RLINE : <200- 239 ----- HIGH RISK: >240 >200 Not Available [facility] (Lab) [address] [place], [address], 05/08/2023 18:23:01 05/08/20 23 05/08/2023 LIPID PANEL triglyceride s 137 mg/dL 0-150 NIH SREEDHAR NSUS REPOR T RECOM MENDA TION FOR TRIGL YCERI JIA: ADULT CHILD LOW RISK: <150 ----- BODER LINE: 150-1 99 ----- HIGH RISK: >200 ----- Not Available [facility] (Lab) [address] [place], [address], 05/08/2023 18:23:01 05/08/20 23 05/08/2023 LIPID PANEL HDL cholesterol 50 mg/dL 40- Not Available [facility] (Lab) [address] [place], [address], 05/08/2023 18:23:01 05/08/20 23 05/08/2023 LIPID PANEL LDL cholesterol, calculated 108 mg/dL 0-130 NIH SREEDHAR NSUS REPOR T RECOM MENDA TIONS FOR LDL: ADULT CHILD LOW RISK <130 <110 (OPTI MAL LDL) <100 ----- BORDE RLINE : 130-1 59 ----- HIGH RISK: >160 >130 A TRIGL YCERI DE RESUL T >400 INVAL IDATE S THE CALCU LATIO N FOR LDL FRACT IONAT ION - THE LDL RESUL T WILL NOT BE REPOR JUANCARLOS. Not Available [facility] (Lab) [address] [place], [address], 05/08/2023 18:23:01 05/08/20 23 05/08/2023 C REACT CINTHYA PROTE IN,UL TRA SENS C-reactive protein 0.88 mg/dL 0.0-0. 5 high Not Available [facility] (Lab) [address] [place], [address], 05/08/2023 18:24:17 05/08/20 23 05/08/2023 CBC/C OMPLE TE BLD COUNT W/DIF F white blood cells 7.6 x10'3 /uL 4.2-10 .8 Not Available [facility] (Lab) [address] [place], [address], 05/08/2023 18:34:32 05/08/20 23 05/08/2023 CBC/C OMPLE TE BLD COUNT W/DIF F red blood cells 4.12 x10'6 /uL 3.80-5 .20 Not Available [facility] (Lab) [address] [place], [address], 05/08/2023 18:34:32 05/08/20 23 05/08/2023 CBC/C OMPLE TE BLD COUNT W/DIF F hemoglobin 12.6 g/dL 12.0-1 5.6 Not Available [facility] (Lab) [address] [place], [address], 05/08/2023 18:34:32 05/08/20 23 05/08/2023 CBC/C OMPLE TE BLD COUNT W/DIF F hematocrit 38.9 % 35.7-4 5.7 Not Available [facility] (Lab) [address] [place], [address], 05/08/2023 18:34:32 05/08/20 23 05/08/2023 CBC/C OMPLE TE BLD COUNT W/DIF F mean red cell volume 94.4 fL 82.0-9 9.0 Not Available [facility] (Lab) [address] [place], [address], 05/08/2023 18:34:32 05/08/20 23 05/08/2023 CBC/C OMPLE TE BLD COUNT W/DIF F mean red cell hemoglobin 30.6 pg 27.0-3 3.0 Not Available [facility] (Lab) [address] [facility] [place], [address], 05/08/2023 18:34:32 05/08/20 23 05/08/2023 CBC/C OMPLE TE BLD COUNT W/DIF F mean RBC HGB concentratio n 32.4 g/dL 31.0-3 6.0 Not Available [facility] (Lab) [address] [place], [address], 05/08/2023 18:34:32 05/08/20 23 05/08/2023 CBC/C OMPLE TE BLD COUNT W/DIF F red cell distribution width 12.8 % 11.8-1 5.5 Not Available [facility] (Lab) [address] [place], [address], 05/08/2023 18:34:32 05/08/20 23 05/08/2023 CBC/C OMPLE TE BLD COUNT W/DIF F platelets 242 x10'3 /uL 150-40 0 Not Available [facility] (Lab) [address] [place], [address], 05/08/2023 18:34:32 05/08/20 23 05/08/2023 CBC/C OMPLE TE BLD COUNT W/DIF F mean platelet volume 11.5 fL 9.0-12 .4 Not Available [facility] (Lab) [address] [place], [address], 05/08/2023 18:34:32 05/08/20 23 05/08/2023 CBC/C OMPLE TE BLD COUNT W/DIF F neutrophils 48.5 % 39.0-7 2.0 Not Available [facility] (Lab) [address] [place], [address], 05/08/2023 18:34:32 05/08/20 23 05/08/2023 CBC/C OMPLE TE BLD COUNT W/DIF F lymphocytes 37.5 % 16.0-4 7.0 Not Available [facility] (Lab) [address] [place], [address], 05/08/2023 18:34:32 05/08/20 23 05/08/2023 CBC/C OMPLE TE BLD COUNT W/DIF F monocytes 9.0 % 5.0-12 .0 Not Available [facility] (Lab) [address] [place], [address], 05/08/2023 18:34:32 05/08/20 23 05/08/2023 CBC/C OMPLE TE BLD COUNT W/DIF F eosinophils 3.6 % 1.0-7. 0 Not Available [facility] (Lab) [address] [place], [address], 05/08/2023 18:34:32 05/08/20 23 05/08/2023 CBC/C OMPLE TE BLD COUNT W/DIF F basophils 1.1 % 0.0-2. 0 Not Available [facility] (Lab) [address] [place], [address], 05/08/2023 18:34:32 05/08/20 23 05/08/2023 CBC/C OMPLE TE BLD COUNT W/DIF F immature granulocytes 0.3 % 0.00-0 .50 Not Available [facility] (Lab) [address] [place], [address], 05/08/2023 18:34:32 05/08/20 23 05/08/2023 CBC/C OMPLE TE BLD COUNT W/DIF F neutrophils, absolute count 3.67 x10'3 /uL 1.5-8. 0 Not Available [facility] (Lab) [address] [place], [address], 05/08/2023 18:34:32 05/08/20 23 05/08/2023 CBC/C OMPLE TE BLD COUNT W/DIF F lymphocytes, absolute count 2.83 x10'3 /uL 1.07-3 .43 Not Available [facility] (Lab) [address] [place], [address], 05/08/2023 18:34:32 05/08/20 23 05/08/2023 CBC/C OMPLE TE BLD COUNT W/DIF F monocytes, absolute count 0.68 x10'3 /uL 0.29-0 .99 Not Available [facility] (Lab) [address] [place], [address], 05/08/2023 18:34:32 05/08/20 23 05/08/2023 CBC/C OMPLE TE BLD COUNT W/DIF F eosinophils, absolute count 0.27 x10'3 /uL 0.02-0 .53 Not Available [facility] (Lab) [address] [place], [address], 05/08/2023 18:34:32 05/08/20 23 05/08/2023 CBC/C OMPLE TE BLD COUNT W/DIF F basophils, absolute count 0.08 x10'3 /uL 0.01-0 .08 Not Available [facility] (Lab) [address] [place], [address], 05/08/2023 18:34:32 05/08/20 23 05/08/2023 CBC/C OMPLE TE BLD COUNT W/DIF F immature granulocytes ,absolute 0.02 x10'3 /uL 0.00-0 .05 Not Available [facility] (Lab) [address] [place], [address], 05/08/2023 18:34:32 05/08/20 23 05/08/2023 CBC/C OMPLE TE BLD COUNT W/DIF F nucleated red blood cells 0.0 % -0 Not Available [facility] (Lab) [address] [place], [address], 05/08/2023 18:34:32 05/08/20 23 05/08/2023 CBC/C OMPLE TE BLD COUNT W/DIF F NRBC# 0.00 x10'3 /uL Not Available [facility] (Lab) [address] [place], [address], 05/08/2023 18:34:32 05/08/20 23 05/08/2023 T3 FREE free T3 2.8 pg/mL 2.77-5 .27 Not Available [facility] (Lab) [address] [place], [address], 05/08/2023 18:34:37 05/08/20 23 05/08/2023 T4 FREE free T4 1.04 NG/dL 0.78-2 .19 Not Available [facility] (Lab) [address] [place], [address], 05/08/2023 18:34:42 05/08/20 23 05/08/2023 TSH thyroid-stim ulating hormone 3.380 uIU/m L 0.465- 4.680 Not Available [facility] (Lab) [address] [place], [address], 05/08/2023 18:47:43 05/08/20 23 05/08/2023 SEDIM ENTAT ION RATE erythrocyte sedimentatio n rate 20 mm/HR 0-20 Not Available [facility] (Lab) [address] [place], [address], 05/08/2023 19:15:55 05/08/20 23 05/08/2023 HEMOG LOBIN A1C HA1C 5.4 % 4.0-6. 0 Diabe wilmer Scree evie Crite nanemarie: <5.7% Consi stent with absen ce of diabe wilmer 5.7-6 .4% Consi stent with incre ased risk for diabe wilmer (pred iabet es) >OR=6 .5% Consi stent with diabe wilmer REFER ENCE: Diabe wilmer Care 2016, 39(Millan ppl.1 ):s13 -s22 Not Available [facility] (Lab) [address] [place], [address], 05/08/2023 20:53:04 05/17/20 24 05/17/2024 CBC/C OMPLE TE BLD COUNT W/DIF F white blood cells 8.0 x10'3 /uL 4.2-10 .8 Not Available [facility] (Lab) [address] [place], [address], 05/17/2024 15:23:34 05/17/20 24 05/17/2024 CBC/C OMPLE TE BLD COUNT W/DIF F red blood cells 4.09 x10'6 /uL 3.80-5 .20 Not Available [facility] (Lab) [address] [place], [address], 05/17/2024 15:23:34 05/17/20 24 05/17/2024 CBC/C OMPLE TE BLD COUNT W/DIF F hemoglobin 12.5 g/dL 12.0-1 5.6 Not Available [facility] (Lab) [address] [place], [address], 05/17/2024 15:23:34 05/17/20 24 05/17/2024 CBC/C OMPLE TE BLD COUNT W/DIF F hematocrit 38.2 % 35.7-4 5.7 Not Available [facility] (Lab) [address] [place], [address], 05/17/2024 15:23:34 05/17/20 24 05/17/2024 CBC/C OMPLE TE BLD COUNT W/DIF F mean red cell volume 93.4 fL 82.0-9 9.0 Not Available [facility] (Lab) [address] [place], [address], 05/17/2024 15:23:34 05/17/20 24 05/17/2024 CBC/C OMPLE TE BLD COUNT W/DIF F mean red cell hemoglobin 30.6 pg 27.0-3 3.0 Not Available [facility] (Lab) [address] [place], [address], 05/17/2024 15:23:34 05/17/20 24 05/17/2024 CBC/C OMPLE TE BLD COUNT W/DIF F mean RBC HGB concentratio n 32.7 g/dL 31.0-3 6.0 Not Available [facility] (Lab) [address] [place], [address], 05/17/2024 15:23:34 05/17/20 24 05/17/2024 CBC/C OMPLE TE BLD COUNT W/DIF F red cell distribution width 12.9 % 11.8-1 5.5 Not Available [facility] (Lab) [address] [place], [address], 05/17/2024 15:23:34 05/17/20 24 05/17/2024 CBC/C OMPLE TE BLD COUNT W/DIF F platelets 244 x10'3 /uL 150-40 0 Not Available [facility] (Lab) [address] [place], [address], 05/17/2024 15:23:34 05/17/20 24 05/17/2024 CBC/C OMPLE TE BLD COUNT W/DIF F mean platelet volume 10.6 fL 9.0-12 .4 Not Available [facility] (Lab) [address] [place], [address], 05/17/2024 15:23:34 05/17/20 24 05/17/2024 CBC/C OMPLE TE BLD COUNT W/DIF F neutrophils 48.4 % 39.0-7 2.0 Not Available [facility] (Lab) [address] [place], [address], 05/17/2024 15:23:34 05/17/20 24 05/17/2024 CBC/C OMPLE TE BLD COUNT W/DIF F lymphocytes 37.8 % 16.0-4 7.0 Not Available [facility] (Lab) [address] [place], [address], 05/17/2024 15:23:34 05/17/20 24 05/17/2024 CBC/C OMPLE TE BLD COUNT W/DIF F monocytes 8.4 % 5.0-12 .0 Not Available [facility] (Lab) [address] [place], [address], 05/17/2024 15:23:34 05/17/20 24 05/17/2024 CBC/C OMPLE TE BLD COUNT W/DIF F eosinophils 4.2 % 1.0-7. 0 Not Available [facility] (Lab) [address] [place], [address], 05/17/2024 15:23:34 05/17/20 24 05/17/2024 CBC/C OMPLE TE BLD COUNT W/DIF F basophils 1.0 % 0.0-2. 0 Not Available [facility] (Lab) [address] [place], [address], 05/17/2024 15:23:34 05/17/20 24 05/17/2024 CBC/C OMPLE TE BLD COUNT W/DIF F immature granulocytes 0.2 % 0.00-0 .50 Not Available [facility] (Lab) [address] [place], [address], 05/17/2024 15:23:34 05/17/20 24 05/17/2024 CBC/C OMPLE TE BLD COUNT W/DIF F neutrophils, absolute count 3.88 x10'3 /uL 1.5-8. 0 Not Available [facility] (Lab) [address] [place], [address], 05/17/2024 15:23:34 05/17/20 24 05/17/2024 CBC/C OMPLE TE BLD COUNT W/DIF F lymphocytes, absolute count 3.03 x10'3 /uL 1.07-3 .43 Not Available [facility] (Lab) [address] [place], [address], 05/17/2024 15:23:34 05/17/20 24 05/17/2024 CBC/C OMPLE TE BLD COUNT W/DIF F monocytes, absolute count 0.67 x10'3 /uL 0.29-0 .99 Not Available [facility] (Lab) [address] [place], [address], 05/17/2024 15:23:34 05/17/20 24 05/17/2024 CBC/C OMPLE TE BLD COUNT W/DIF F eosinophils, absolute count 0.34 x10'3 /uL 0.02-0 .53 Not Available [facility] (Lab) [address] [place], [address], 05/17/2024 15:23:34 05/17/20 24 05/17/2024 CBC/C OMPLE TE BLD COUNT W/DIF F basophils, absolute count 0.08 x10'3 /uL 0.01-0 .08 Not Available [facility] (Lab) [address] [place], [address], 05/17/2024 15:23:34 05/17/20 24 05/17/2024 CBC/C OMPLE TE BLD COUNT W/DIF F immature granulocytes ,absolute 0.02 x10'3 /uL 0.00-0 .05 Not Available [facility] (Lab) [address] [place], [address], 05/17/2024 15:23:34 05/17/20 24 05/17/2024 CBC/C OMPLE TE BLD COUNT W/DIF F nucleated red blood cells 0.0 % -0 Not Available [facility] (Lab) [address] [place], [address], 05/17/2024 15:23:34 05/17/20 24 05/17/2024 CBC/C OMPLE TE BLD COUNT W/DIF F NRBC# 0.00 x10'3 /uL Not Available [facility] (Lab) [address] [place], [address], 05/17/2024 15:23:34 05/17/20 24 05/17/2024 COMPR EHENS CINTHYA METAB OLIC PANEL sodium 141 mmol/ L 137-14 5 Not Available [facility] (Lab) [address] [place], [address], 05/17/2024 16:07:27 05/17/20 24 05/17/2024 COMPR EHENS CINTHYA METAB OLIC PANEL potassium 3.6 mmol/ L 3.5-5. 1 Not Available [facility] (Lab) [address] [place], [address], 05/17/2024 16:07:27 05/17/20 24 05/17/2024 COMPR EHENS CINTHYA METAB OLIC PANEL chloride 105 mmol/ L 98-107 Not Available [facility] (Lab) [address] [place], [address], 05/17/2024 16:07:27 05/17/20 24 05/17/2024 COMPR EHENS CINTHYA METAB OLIC PANEL carbon dioxide 31 mmol/ L 22-30 high Not Available [facility] (Lab) [address] [place], [address], 05/17/2024 16:07:27 05/17/20 24 05/17/2024 COMPR EHENS CINTHYA METAB OLIC PANEL anion gap 8.6 mmol/ L 14-22 low Not Available [facility] (Lab) [address] [place], [address], 05/17/2024 16:07:27 05/17/20 24 05/17/2024 COMPR EHENS CINTHYA METAB OLIC PANEL glucose 88 mg/dL 70-99 Not Available [facility] (Lab) [address] [place], [address], 05/17/2024 16:07:27 05/17/20 24 05/17/2024 COMPR EHENS CINTHYA METAB OLIC PANEL BUN 13 mg/dL 8-19 Not Available [facility] (Lab) [address] [place], [address], 05/17/2024 16:07:27 05/17/20 24 05/17/2024 COMPR EHENS CINTHYA METAB OLIC PANEL creatinine 0.86 mg/dL 0.66-1 .25 Not Available [facility] (Lab) [address] [place], [address], 05/17/2024 16:07:27 05/17/20 24 05/17/2024 COMPR EHENS CINTHYA METAB OLIC PANEL GFR >60 Refer ence Range : [place] ge GFR Healt hy Adult : >60 mL/mi n/1.7 3 m2 Chron ic Kidne y Disea se: 15-60 mL/mi n/1.7 3 m2 Kidne y Failu re: <15/m L/min /1.73 m2 www.n iddk. nih.g ov The MDRD study equat ion has not been valid ated in child alicia <18 years of age; pregn ant women ; the elder ly >85 years of age; or in some racia l or ethni c subgr oups, such as Hispa nics. Outsi de the valid ated rosemary eters , estim ated GFR is less accur ate, requi ring clini neal judgm ent on a case- by-ca se basis . Clini neal inter preta tion for other races and ages must be made by the clini sandro. The MDRD study equat ion has not been valid ated for the evalu ation of serum creat inine relat ed to nutri luz elena l statu s or medic ation usage . For perso ns <18 years of age, a pedia tric GFR calcu lator is avail able on the [facility] websi te: https ://zenobia w.mihaela renner.o rg/pr ofess ional s/kdo qi/gf r_cal culat or Not Available [facility] (Lab) [address] [place], [address], 05/17/2024 16:07:27 05/17/20 24 05/17/2024 COMPR EHENS CINTHYA METAB OLIC PANEL alkaline phosphatase 68 U/L 38-126 Not Available [facility] (Lab) [address] [place], [address], 05/17/2024 16:07:27 05/17/20 24 05/17/2024 COMPR EHENS CINTHYA METAB OLIC PANEL alanine aminotransfe rase 24 U/L 0-35 Not Available [facility] (Lab) [address] [place], [address], 05/17/2024 16:07:27 05/17/20 24 05/17/2024 COMPR EHENS CINTHYA METAB OLIC PANEL aspartate aminotransfe rase 31 U/L 15-37 Not Available [facility] (Lab) [address] [place], [address], 05/17/2024 16:07:27 05/17/20 24 05/17/2024 COMPR EHENS CINTHYA METAB OLIC PANEL bilirubin, total 0.60 mg/dL 0.20-1 .30 Not Available [facility] (Lab) [address] [place], [address], 05/17/2024 16:07:27 05/17/20 24 05/17/2024 COMPR EHENS CINTHYA METAB OLIC PANEL calcium 9.1 mg/dL 8.4-10 .2 Not Available [facility] (Lab) [address] [place], [address], 05/17/2024 16:07:27 05/17/20 24 05/17/2024 COMPR EHENS CINTHYA METAB OLIC PANEL total protein 6.3 g/dL 6.3-8. 2 Not Available [facility] (Lab) [address] [place], [address], 05/17/2024 16:07:27 05/17/20 24 05/17/2024 COMPR EHENS CINTHYA METAB OLIC PANEL albumin 4.0 g/dL 3.0-4. 4 Not Available [facility] (Lab) [address] [place], [address], 05/17/2024 16:07:27 05/17/20 24 05/17/2024 COMPR EHENS CINTHYA METAB OLIC PANEL globulin 2.3 g/dL 2.6-4. 2 low Not Available [facility] (Lab) [address] [place], [address], 05/17/2024 16:07:27 05/17/20 24 05/17/2024 COMPR EHENS CINTHYA METAB OLIC PANEL A/G ratio 1.7 ratio 1.0-2. 0 Not Available [facility] (Lab) [address] [place], [address], 05/17/2024 16:07:27 05/17/20 24 05/17/2024 LIPID PANEL cholesterol 190 mg/dL 140-19 9 NIH SREEDHAR NSUS RECOM MENDA TION FOR BOBBY STERO L: ADULT CHILD LOW RISK: <200 <170 BORDE RLINE : <200- 239 ----- HIGH RISK: >240 >200 Not Available [facility] (Lab) [address] [place], [address], 05/17/2024 16:07:31 05/17/20 24 05/17/2024 LIPID PANEL triglyceride s 100 mg/dL 0-150 NIH SREEDHAR NSUS REPOR T RECOM MENDA TION FOR TRIGL YCERI JIA: ADULT CHILD LOW RISK: <150 ----- BODER LINE: 150-1 99 ----- HIGH RISK: >200 ----- Not Available [facility] (Lab) [address] [place], [address], 05/17/2024 16:07:31 05/17/20 24 05/17/2024 LIPID PANEL HDL cholesterol 62 mg/dL 40- Not Available [facility] (Lab) [address] [place], [address], 05/17/2024 16:07:31 05/17/20 24 05/17/2024 LIPID PANEL LDL cholesterol, calculated 108 mg/dL 0-130 NIH SREEDHAR NSUS REPOR T RECOM MENDA TIONS FOR LDL: ADULT CHILD LOW RISK <130 <110 (OPTI MAL LDL) <100 ----- BORDE RLINE : 130-1 59 ----- HIGH RISK: >160 >130 A TRIGL YCERI DE RESUL T >400 INVAL IDATE S THE CALCU LATIO N FOR LDL FRACT IONAT ION - THE LDL RESUL T WILL NOT BE REPOR JUANCARLOS. Not Available [facility] (Lab) [address] [place], [address], 05/17/2024 16:07:31 05/17/20 24 05/17/2024 SEDIM ENTAT ION RATE erythrocyte sedimentatio n rate 45 mm/HR 0-20 high Not Available [facility] (Lab) [address] [place], [address], 05/17/2024 16:22:51 05/17/20 24 05/17/2024 C REACT CINTHYA PROTE IN,UL TRA SENS C-reactive protein 1.03 mg/dL 0.0-0. 5 high Not Available [facility] (Lab) [address] [place], [address], 05/17/2024 16:31:59 05/17/20 24 05/17/2024 T4 FREE free T4 1.10 NG/dL 0.78-2 .19 Not Available [facility] (Lab) [address] [place], [address], 05/17/2024 16:33:35 05/17/20 24 05/17/2024 T3 FREE free T3 3.4 pg/mL 2.77-5 .27 Not Available [facility] (Lab) [address] [place], [address], 05/17/2024 16:33:39 05/17/20 24 05/17/2024 TSH thyroid-stim ulating hormone 5.930 uIU/m L 0.465- 4.680 high Not Available [facility] (Lab) [address] [place], [address], 05/17/2024 16:34:06 05/17/20 24 05/17/2024 HEMOG LOBIN A1C HA1C 5.5 % 4.0-6. 0 Diabe wilmer Scree evie Crite annemarie: <5.7% Consi stent with absen ce of diabe wilmer 5.7-6 .4% Consi stent with incre ased risk for diabe wilmer (pred iabet es) >OR=6 .5% Consi stent with diabe wilmer REFER ENCE: Diabe wilmer Care 2016, 39(Millan ppl.1 ):s13 -s22 Not Available [facility] (Lab) [address] [place], [address], 05/17/2024 19:57:24 11/02/19 23 MRI, jose arelis, w/o contr ast [facility] [address] [place] [address] [phone] Patien t Name: ROSALINO BENJAMIN Access ion #: [id number] Sex: F : 10/08/ 1960 3 Locati on: RA2 Attend ing Physic jeremiah: MING JOLLY Ordermay Physic jeremiah: MING JOLLY Exam Date: 023 7:53 AM Exam Name: MRI SHOULD ER LT WO Admitt ing Diagno sis(es ): RADIOL OGY REPORT - FINAL EXAM: MRI SHOULD ER LT WO HISTOR Y: pain 62-yea r-old female with left should er pain, distan t histor y of fall. COMPAR HARRIS: Radiog raphs dated 2022. TECHNI QUE: Multip lanar multis equenc e noncon trast MR images of the left should er were perfor med. FINDIN GS: No fractu re or bone marrow edema are identi fied about the left should er. No eviden ce of full-t hickne ss rotato r cuff tear. There are bursal surfac e and articu lar surfac e partia l-thic kness tears of the supras pinatu s tendon near the insert ion, and the tears involv ing a majori ty of the tendon width (image 12, series 801). There is an intras ubstan ce partia l thickn ess tear of the Page 1 of 3 [facility] Name: ROSALINO BENJAMIN Access ion #: [id number] Sex: F : 1959 3 Exam Date: 023 7:53 AM Exam Name: MRI SHOULD ER LT WO Admitt ing Diagno sis(es ): infras pinatu s tendon insert ion (image 15, series 801), and diffus e infras pinatu s tendin osis. There is an intras ubstan ce partia l thickn ess tear of the subsca pulari s tendon near the insert ion (image 8, series 901; image 17, series 401). The long head of the biceps tendon is locate d in the bicipi bethanie groove and demons trates interm ediate signal thicke evie as it passes the lesser tubero sity (image s 6-8, series 901). The LHBT is otherw ise intact . There is glenoh umeral osteoa rthrit is with chondr omalac ia and extens cinthya glenoi d subcho ndral cystic change s. Despit e the glenoh umeral degene rative change s, no signif icant degene rative labral tears are visual ized here. There is minima l acromi oclavi cular hypert rophy. Subacr omial space is mildly narrow ed at 5.5 mm. The unders urface of the acromi on is curved . There is a small glenoh umeral effusi on. There is a small amount of fluid in the subacr omial- subdel toid region . IMPRES RACHEL: 1. No fractu re of the left should er. 2. Partia l-thic kness tears of the supras pinatu s, infras pinatu s, and subsca pulari s tendon s as detail ed above, most extens ively involv ing the supras pinatu s tendon . No eviden ce of full-t hickne ss rotato r cuff tear. 3. Minima l acromi oclavi cular hypert rophy with curved acromi on and mild loss of subacr omial space. These factor s may be relate d to clinic al sympto ms of subacr omial imping ement. 4. Glenoh umeral osteoa rthrit is with chondr omalac ia and glenoi d subcho ndral cystic change s. No defini te degene rative labral tear visual ized here. 5. Mild subacr omial- subdel toid bursit is. Create d and electr onical ly signed by: Juanjo art MD Page 2 of 3 [facility] [place] Patien t Name: ROSALINO BENJAMIN Access ion #: [id number] Sex: F : 1959 3 Exam Date: 023 7:53 AM Exam Name: MRI SHOULD ER LT WO Admitt ing Diagno sis(es ): Signed Date: 023 9:26 AM (CT) Dictat ed by: Juanjo art MD DD: 9:26 AM (CT) DT: 9:26 AM (CT) Page 3 of 3 [email or web address] [facility] (Imaging) [address] [place], [address], 11/01/2022 14:26:37 11/27/19 23 11/26/2022 US guide d asp/i nj shoul arelis lt [facility] [address] [facility] [address], [place] [address] [phone] Patimyla t Name: DORETHAROSALINO GARCIA Access ion #: [id number] Sex: F : 1959 7 Locati on: RAD Attend ing Physic jeremiah: MING JOLLY Orderi ng Physic jeremiah: MING JOLLY Exam Date: 8:11 AM Exam Name: US GUIDED ASP/IN J SHOULD ER LT Admitt ing Diagno sis(es ): RADIOL OGY REPORT - FINAL EXAM: US GUIDED ASP/IN J SHOULD ER LT HISTOR Y: left glenoh umeral joint inject ion for pain 62-yea r-old female with left should er and upper extrem ity pain, distan t histor y of injury . COMPAR HARRIS: Left should er MRI examin ation dated 2022. TECHNI QUE: PROCED URE: Left should er glenoh umeral joint ultras ound-g uided therap eutic inject ion. EXPLAN ATION: Risks and benefi ts of the proced ure were discus sed with the patien t, includ ing risks of bleedi ng, infect ion, and allerg ic reacti on. The patien t agreed to procee d and gave inform ed consen t. The skin of the left should er was marked , and the patien t agreed that this was the correc t should er. Time out was perfor med. Page 1 of 2 [facility] [facility] ROSAL[facility] BENJAM[facility] Access ion #: [id number] Sex: F : 1959 [id number] Exam Date: 8:11 AM Exam Name: US GUIDED ASP/IN J SHOULD ER LT Admitt ing Diagno sis(es ): INJECT ATE: 80 mg Depo-M edrol; 3 ml 1% lidoca ine withou t epinep hrine. The patien t was placed in sittin g positi on on the ultras ound bed. The left should er was evalua juancarlos sonogr aphica lly. The skin of the left should er was preppe d steril dheeraj with betadi ne. The skin and subcut aneous tissue s were anesth etized with 1% lidoca ine withou t epinep hrine. A 22 gauge spinal needle was advanc ed under ultras ound guidan ce into the glenoh umeral joint. The medica tions were then inject ed into the glenoh umeral joint under sonogr aphic visual izatio n. The needle was remove d. The skin was cleans ed, and a small bandag e was placed . The patien t tolera juancarlos the proced ure well, and there were no immedi ate compli cation s. Multip le perman ent sonogr aphic images were obtain ed before and during the proced ure. IMPRES RACHEL: 1. Succes sful ultras ound-g uided left should er glenoh umeral joint therap eutic inject ion. 2. The patien t was instru cted to closel y monito r pain level for the next few hours to days. Create d and electr onical ly signed by: Juanjo art MD Signed Date: 10:40 AM (CT) Dictat ed by: Juanjo art MD DD: 10:40 AM (CT) DT: 10:40 AM (CT) Page 2 of 2 [facility] ([facility]) [address] [place], [address], 11/26/2022 12:10:47 04/16/2004/16/2023 US guide d asp/i nj shoul arelis lt [facility] [address] [place] [address] [phone] [facility] Access ion #: [id number] Sex: F : 1959 8 Locati on: RAD Attend ing Physic jeremiah: DONELL CHOU Orderi ng Physic jeremiah: DONELL CHOU Exam Date: 2022 9:12 AM Exam Name: US GUIDED ASP/IN J SHOULD ER LT Admitt ing Diagno sis(es ): RADIOL OGY REPORT - FINAL EXAM: US GUIDED ASP/IN J SHOULD ER LT HISTOR Y: left should er inject ion 63-yea r-old female with left should er pain. COMPAR HARRIS: Left should er ultras ound guided pain inject ion dated 2022. TECHNI QUE: PROCED URE: Left should er glenoh umeral joint ultras ound-g uided therap eutic inject ion. EXPLAN ATION: Risks and benefi ts of the proced ure were discus sed with the patien t, includ ing risks of bleedi ng, infect ion, and allerg ic reacti on. The patien t agreed to procee d and gave inform ed consen t. The skin of the left should er was marked , and the patien t agreed that this was the correc t should er. Time out was perfor med. Page 1 of 2 [facility] Access ion #: [id number] Sex: F : 1959 8 Exam Date: 2022 9:12 AM Exam Name: US GUIDED ASP/IN J SHOULD ER LT Admitt ing Diagno sis(es ): INJECT ATE: 80 mg Depo-M edrol; 4 ml 1% lidoca ine withou t epinep hrine. The patien t was placed in sittin g positi on on the ultras ound bed. The left should er was evalua juancarlos sonogr aphica lly. The skin of the coil tester ior aspect of the left should er was preppe d steril dheeraj with betadi ne. The skin and subcut aneous tissue s were anesth etized with 1% lidoca ine withou t epinep hrine. A 22 gauge spinal needle was advanc ed under ultras ound guidan ce into the glenoh umeral joint. The medica tions were then inject ed into the glenoh umeral joint under sonogr aphic visual izatio n. The needle was remove d. The skin was cleans ed, and a small bandag e was placed . The patien t tolera juancarlos the proced ure well, and there were no immedi ate compli cation s. Multip le perman ent sonogr aphic images were obtain ed before and during the proced ure. IMPRES RACHEL: 1. Succes sful ultras ound-g uided left should er glenoh umeral therap eutic inject ion. 2. The patien t was instru cted to monito r pain level for the next few hours to days. Create d and electr onical ly signed by: Juanjo art MD Signed Date: 2022 10:29 AM (CT) Dictat ed by: Juanjo art MD DD: 2022 10:29 AM (CT) DT: 2022 10:29 AM (CT) Page 2 of 2 [facility] ([facility]) [address] [place], [address], 04/16/2023 11:44:10 09/24/19 24 09/24/2023 MRI, brain + brain stem, w/wo contr ast No observ ation record ed. [email or web address] [facility] [address], [place], [address], 12/25/2023 10:40:18 11/19/19 24 11/19/2023 injec tion, shoul arelis, fluor o iris nce (PROC ) No observ ation record ed. [email or web address] [facility] [address] [place], [address], 11/19/2023 13:47:58 Result Notes None recorded. Problems Name Problem SNOMED Code Status Onset Date Resolution Date Notes Provider Name and Address Organization Details Recorded Time Accessory navicular bone of foot 135763812 Active 2021 Not Available [facility] 3 10:05:12 Stress fracture of metatarsa l bone of left foot 40223688871 393583 Active 2020 Not Available [facility] 3 10:05:13 Plantar fasciitis of left foot 76014453165 476697 Active 2017 Not Available [facility] 3 10:05:13 Sinus tarsi syndrome of right ankle 93535868221 615447 Active 2019 Not Available [facility] 3 10:05:13 Tibialis posterior tendiniti s 735091717 Active 2021 Not Available [facility] 3 10:05:13 Peroneus brevis tenosynov itis 991228554 Active 2017 Not Available [facility] 3 10:05:13 Ankle pain 867811921 Active Not Available [facility] 3 10:05:13 Gastroeso phageal reflux disease without esophagit is 823481565 Active 2019 Not Available [facility] 3 10:05:13 Low back pain 526367414 Active 2021 Not Available [facility] 3 10:05:13 Dang's neuroma of left foot 73810385988 9105 Active 2019 Not Available [facility] 3 10:05:13 Metatarsa lgia of right foot 44848025569 9100 Active 2021 Not Available [facility] 3 10:05:13 Pain in left foot 02696923063 9107 Active 2019 Not Available [facility] 3 10:05:13 Pain in right foot 76315102923 9107 Active 2021 Not Available [facility] 3 10:05:13 Peroneal tendiniti s of left lower limb 18079196458 9107 Active 2020 Not Available [facility] 3 10:05:13 Bronchiti s 85726754 Completed Not Available [facility] 3 00:53:34 Vitamin D deficienc y 71197202 Active 2021 Not Available [facility] 3 10:05:13 Sinusitis 91964215 Active 2021 Not Available [facility] 3 10:05:13 Arthritis 3960823 Active Not Available [facility] 3 10:05:13 Hypothyro idism 10075904 Active 2021 Not Available [facility] 3 10:05:13 Obesity 089017976 Active 2021 Not Available [facility] 3 10:05:13 Eczema 77283912 Active 2020 Not Available [facility] 3 10:05:13 Strain of muscle and/or tendon of lower leg 228694301 Active 2020 Not Available [facility] 3 10:05:13 Inflammat ion of joint of foot 449581227 Active Not Available [facility] 3 10:05:13 Foot pain 23291319 Active Not Available [facility] 3 10:05:13 Dysuria 19636867 Completed Not Available [facility] 3 00:53:35 Cough 38552845 Completed Not Available [facility] 3 00:53:35 Peroneal tendiniti s 98845001 Active 2020 Not Available [facility] 3 10:05:13 Upper respirato ry infection 58796455 Active 2021 Not Available [facility] 3 10:05:13 Essential hypertens ion 55608726 Active 2021 Not Available [facility] 3 10:05:13 Rhinitis 70286574 Completed Not Available [facility] 3 00:53:35 Hyperglyc emia 39926825 Active 2021 Not Available [facility] 3 10:05:13 COVID-19 567676469 Active 2022 Not Available [facility] 3 10:05:13 Chronic rhinitis 28190571 Active 2019 Not Available [facility] 3 10:05:13 Weight gain 5667437 Active 2021 Not Available [facility] 3 10:05:13 Pain of left shoulder joint 99282923301 115713 Active 2022 Not Available [facility] 3 10:05:13 Post traumatic osteoarth ritis 234906372 Active 2022 Not Available [facility] 3 10:05:13 Localized , primary osteoarth ritis of the shoulder region Active 2022 Not Available [facility] 3 10:05:13 Localized , primary osteoarth ritis of the shoulder region Active 2022 Not Available [facility] 3 10:05:13 Neck pain 15892355 Active 2022 MAY Samaniego, [facility] [employer] [facility] 3 12:24:05 Paresthes ia 30536186 Active 2022 MAY Samaniego, [facility] 3 15:22:02 Anxiety 32887460 Active 2022 Wilberto Pro MD [address] [place] [address], [id number] [facility] [employer] [facility] 3 21:35:55 Problem Notes None recorded. Procedures Surgical History Date Name Laterality Status Provider Name and Address Organization Details Recorded Time 01/07/20 Advanced Care Planning completed Dilcia Warren RN [facility] 01/06/2023 13:56:18 Neck Surgeries completed Not Available [facility] 09/04/2022 00:47:35 Hysterectomy completed Not [facility] 09/04/2022 00:47:35 Carpal tunnel completed Not Available [facility] 09/04/2022 00:47:35 Foot Surgery completed Not Available [facility] 09/04/2022 00:47:35 Imaging Results Imaging Date Name Status LastModified by Organ atcritical access hospital Details LastModified Time 11/01/2022 MRI, shoulder, w/o contrast completed [email or web address] [facility] [address] [place], [address], 11/01/2022 14:26:37 11/26/2022 US guided asp/inj shoulder lt completed [email or web address] [facility] [address] [place], [address], 11/26/2022 12:10:47 04/16/2023 US guided asp/inj shoulder lt completed [email or web address] [facility] [address] [place], [address], 04/16/2023 11:44:10 09/24/2023 MRI, brain + brain stem, w/wo contrast completed [email or web address] [facility] [address], [place], [address], 12/25/2023 10:40:18 11/19/2023 injection, shoulder, fluoro guidance (PROC) completed [email or web address] [facility] [address] [place], [address], 11/19/2023 13:47:58 Procedure Notes None recorded. Medical Equipment None Reported. Allergies No known drug allergies Medications Name Sig Start Date Stop Date Status Note LastModified by Organization Details LastModified Time celecoxib 200 mg capsule TAKE 1 CAPSULE BY MOUTH EVERY DAY active Not Available Not Available No t Available cyclobenz aprine 10 mg tablet TAKE 1 TABLET BY MOUTH THREE TIMES DAILY FOR 14 DAYS 12/26 completed Not Available Not Available Not Available amoxicill in 500 mg capsule 01/14 completed Not Available Not Available Not Available prednison e 10 mg tablet Take by oral route. active Not Available Not Available No t Available cefuroxim e axetil 250 mg tablet 10/24 completed Not Available Not Available Not Available azithromy aleah 250 mg tablet TAKE 2 TABLETS (500 MG) BY ORAL ROUTE ONCE DAILY FOR 1 DAY THEN 1 TABLET (250 MG) BY ORAL ROUTE ONCE DAILY FOR 4 DAYS 12/26 completed Not Available Not Available Not Available ibuprofen 800 mg tablet TAKE 1 TABLET BY MOUTH THREE TIMES DAILY NEEDED 12/26 completed Not Available Not Available Not Available clarithro mycin 500 mg tablet Take 1 tablet every 12 hours by oral route. 12/02 completed Not Available Not Available Not Available tolterodi ne ER 4 mg capsule,e xtended release 24 hr TK ONE C PO QD active Not Available Not Available No t Available hydrocodo ne 5 mg-acetam inophen 325 mg tablet TAKE 1 TABLET BY MOUTH EVERY 8 HOURS NEEDED FOR PAIN 12/26 completed Not Available Not Available Not Available prednison e 20 mg tablet 3tabs x 3 days, 2tabs x 3days, 1 tab x 3 days active Not Available Not Available No t Available alendrona te 70 mg tablet TAKE 1 TABLET BY MOUTH EVERY WEEK active Not Available Not Available No t Available lidocaine 4 % topical cream Apply to top of left foot up to three times daily as needed 10/24 completed Not Available Not Available Not Available promethaz ine 6.25 mg-codein e 10 mg/5 mL syrup TK 5 ML PO Q 6 H 12/02 completed Not Available Not Available Not Available topiramat e 25 mg tablet 10/24 completed Not Available Not Available Not Available phentermi ne 37.5 mg tablet TK 1 T PO QD active Not Available Not Available No t Available acetamino phen 300 mg-codein e 30 mg tablet Take 1 tablet twice a day by oral route as needed for 7 days. active Not Available Not Available No t Available hydrocodo ne 10 mg-acetam inophen 325 mg tablet active Not Available Not Available Not Available tramadol 50 mg tablet active Not Available Not Available Not Available triamcino lone acetonide 0.1 % topical cream apply to affected area daily as needed active Not Available Not Available No t Available amoxicill in 500 mg tablet Take 1 tablet every 8 hours by oral route as directed for 7 days. active Not Available Not Available No t Available famotidin e 20 mg tablet TK 1 T PO QHS 12/26 completed Not Available Not Available Not Available Synthroid 25 mcg tablet TAKE 1 TABLET BY MOUTH EVERY DAY active Not Available Not Available No t Available benzonata te 100 mg capsule Take 2 capsules 3 times a day by oral route as needed. 08/19 completed Not Available Not Available Not Available pantopraz ole 40 mg tablet,de layed release TAKE 1 TABLET BY MOUTH EVERY MORNING FOR 4 WEEKS active Not Available Not Available No t Available Cipro 500 mg tablet Take 1 tablet twice a day by oral route for 7 days. active Not Available Not Available No t Available ranitidin e 150 mg tablet TK 1 T PO QHS 10/24 completed Not Available Not Available Not Available prednison e 50 mg tablet active Not Available Not Available Not Available gabapenti n 300 mg capsule Take 1 capsule by oral route as needed. 03/04 completed end of course Not Available Not Available Not Available monteluka st 10 mg tablet TK 1 T PO QD 12/26 completed Not Available Not Available Not Available magnesium 250 mg tablet Take 1 tablet every day by oral route at bedtime. active Not Available Not Available No t Available ergocalci ferol (vitamin D2) 1,250 mcg (50,000 unit) capsule TAKE 1 CAPSULE BY MOUTH EVERY WEEK active Not Available Not Available No t Available cefuroxim e axetil 500 mg tablet Take 1 tablet twice a day by oral route for 10 days. active Not Available Not Available No t Available methylpre dnisolone 4 mg tablets in a dose pack TAKE DIRECTED 11/07 completed Not Available Not Available Not Available albuterol sulfate HFA 90 mcg/actua tion aerosol inhaler INHALE 2 PUFFS PO Q 6 H PRF WHEEZING active Not Available Not Available No t Available celecoxib 100 mg capsule TK 1 C PO QD NEEDED FOR PAIN 10/24 completed Not Available Not Available Not Available ondansetr on 4 mg disintegr ating tablet 10/24 completed Not Available Not Available Not Available cefdinir 300 mg capsule Take 1 capsule twice a day by oral route for 7 days. active Not Available Not Available No t Available fluticaso ne propionat e 50 mcg/actua tion nasal spray,[employer] pension SHAKE LQ AND U 1 SPR IEN QD 03/18 completed Not Available Not Available Not Available sertralin e 50 mg tablet TAKE 1 TABLET BY MOUTH EVERY DAY active Not Available Not Available No t Available phentermi ne 37.5 mg capsule TK 1 C PO QD active Not Available Not Available No t Available naproxen 500 mg tablet 08/19 completed Not Available Not Available Not Available amoxicill in 875 mg-potass ium clavulana te 125 mg tablet TAKE 1 TABLET BY MOUTH TWICE DAILY FOR 10 DAYS 03/04 completed end of course Not Available Not Available Not Available cyclobenz aprine 5 mg tablet active Not Available Not Available No t Available nitrofura ntoin monohydra te/macroc rystals 100 mg capsule TK 1 C PO BID FOR 7 DAYS 10/24 completed Not Available Not Available Not Available Amitiza 24 mcg capsule TK 1 C PO BID. active Not Available Not Available No t Available Arthritis Pain Relief (capsaici n) 0.1 % topical cream JUANPABLO AA TID PRN active Not Available Not Available No t Available risedrona te 150 mg tablet TK 1 T PO Q MONTH 10/24 completed Not Available Not Available Not Available diclofena c 1 % topical gel APPLY 2 GRAMS TO BOTH FEET AND ANKLES PRN 10/24 completed Not Available Not Available Not Available Prevnar 13 (PF) 0.5 mL intramusc ular syringe 10/24 completed Not Available Not Available Not Available Osphena 60 mg tablet TK 1 T PO QD 02/17 completed Not Available Not Available Not Available Virtussin AC 10 mg-100 mg/5 mL oral liquid take 1 teaspoon qhs as needed for cough 12/02 completed Not Available Not Available Not Available Fluvirin 3042-2467 45 mcg (15 mcg x 3)/0.5 mL intramusc ular suspensio n INJECT 0.5 ML INTRAMUS CULARLY DIRECTED . active Not Available Not Available No t Available Contrave 8 mg-90 mg tablet,ex tended release 10/24 completed Not Available Not Available Not Available Fluvirin 45 mcg (15 mcg x 3)/0.5 mL intramusc ular suspensio n 10/24 completed Not Available Not Available Not Available Fluvirin 45 mcg (15 mcg x 3)/0.5 mL intramusc ular suspensio n ADM 0.5ML IM UTD 10/24 completed Not Available Not Available Not Available Fluvirin 45 mcg (15 mcg x 3)/0.5 mL intramusc ular suspensio n ADM 0.5ML IM UTD 10/24 completed Not Available Not Available Not Available Ozempic 0.25 mg or 0.5 mg (2 mg/1.5 mL) subcutane ous pen injector 03/18 completed changed to 1mg per Dr Pro Not Available Not Available Not Available Afluria Quad 4928-6342 (PF) 60 mcg (15 mcg x 4)/0.5 mL IM syringe ADM 0.5ML IM UTD 10/24 completed Not Available Not Available Not Available Afluria Qd 2018- (36 mos up)(PF)60 mcg (15 mcg x4)/0.5 mL IM syringe ADM 0.5ML IM UTD 10/24 completed Not Available Not Available Not Available Ozempic 1 mg/dose (4 mg/3 mL) subcutane ous pen injector INJECT 1 MG UNDER THE SKIN EVERY WEEK 11/07 completed Not Available Not Available Not Available Paxlovid 300 mg (150 mg x 2)-100 mg tablets in a dose pack Take 3 tablets twice a day by oral route for 5 days. 09/23 completed Not Available Not Available Not Available Ozempic 2 mg/dose (8 mg/3 mL) subcutane ous pen injector Inject 2 mg every week by subcutan eous route for 90 days. active Not Available Not Available No t Available Vitals Date Recorded Body height Provider Name an d Address Organization Details Last Updated DateTime 11/07/2022 162.56 cm Sara Arevalo Brayden [employer] [facility] [employer] 11/07/2022 08:57:33 Date Recorded Body height Provider Name an d Address Organization Details Last Updated DateTime 12/19/2022 162.56 cm Sara Arevalo Brayden [employer] [facility] [employer] 12/19/2022 09:00:18 Date Recorded Body height Body mass index (BMI) Body weight Body temperature Heart rate Systolic blood pressure Diastolic blood pressure Provider Name and Address Organization Details Last Updated DateTime 3 162.56 cm 34.5 kg/m2 59882.0 7 g 97.2 [degF] 73 /min 122 mm[Hg] 86 mm[Hg] Alison Joya Brayden [employer] [facility] [employer] 12:39:21 Date Recorded Body height Body mass index (BMI) Body weight Body temperature Heart rate Systolic blood pressure Diastolic blood pressure Provider Name and Address Organization Details Last Updated DateTime 3 162.56 cm 35.2 kg/m2 18972.4 4 g 97.8 [degF] 68 /min 130 mm[Hg] 82 mm[Hg] MAY Colón [facility] 3 11:25:24 Date Recorded Body height Body mass index (BMI) Body weight Body temperature Heart rate Systolic blood pressure Diastolic blood pressure Provider Name and Address Organization Details Last Updated DateTime 3 162.56 cm 35 kg/m2 06915.8 4 g 98 [degF] 78 /min 126 mm[Hg] 78 mm[Hg] Sonja walsh RN [facility] [employer] [facility] 3 16:17:31 Social History Question Answer Notes LastModified by Organization Details LastModified Time Tobacco Smoking Status Former Smoker quit age 38 Janet prabhakar, [facility] [employer] [facility] 09/19/2022 11:18:10 Do You Have An Advance Directive? No [id number] Information not available 09/04/2022 What Is Your Level Of Alcohol Consumption? Occasional [id number] Information not available 09/04/2022 What Is Your Level Of Caffeine Consumption? Moderate [id number] Information not available 09/04/2022 How Much Tobacco Do You Chew? None [id number] Information not available 09/04/2022 In The 14 Days Before Symptom Onset, Have You Had Close Contact With A Laboratory-confi rmed COVID-19 While That Case Was Ill? No [email or web address] Information not available 09/19/2022 In The 14 Days Before Symptom Onset, Have You Had Close Contact With A Person Who Is Under Investigation For COVID-19 While That Person Was Ill? No [email or web address] Information not available 09/19/2022 What Type Of Diet Are You Following? REGULAR [id number] Information not available 09/04/2022 Do You Or Have You Ever Used E-cigarettes Or Vape? 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 Yes Dog [email or web address] Information not available 09/19/2022 What Is The Fluoride Status Of Your Home? Unknown [email or web address] Information not available 09/19/2022 Are There Any Guns Present In Your Home? Yes [email or web address] Information not available 09/19/2022 Do You Use Insect Repellent Routinely? No [email or web address] Information not available 09/19/2022 Where Do You Live? SingleLevelHouse [email or web address] Information not available 09/19/2022 Do You Have A Medical Power Of Manager Business Management? No Information not available 09/19/2022 What Was The Date Of Your Most Recent Tobacco Screening? 06/04/2023 [email or web address] Information not available 06/04/2023 Do You Have Any Pets? No [email or web address] Information not available 09/19/2022 What Is Your Relationship Status? [id number] Information not available 09/04/2022 Do You Use Your Seat Belt Or Car Seat Routinely? Yes [email or web address] Information not available 09/19/2022 Do You Have Smoke And Carbon Monoxide Detectors In Your Home? Yes [email or web address] Information not available 09/19/2022 Are You Passively Exposed To Smoke? No [email or web address] Information not available 09/19/2022 Do You Or Have You Ever Used Smokeless Tobacco? Never Used Smokeless Tobacco [id number] Information not available 09/04/2022 Are There Any Smokers In Your House? No [email or web address] Information not available 09/19/2022 How Much Tobacco Do You Smoke? No [id number] Information not available 09/04/2022 Do You Feel Stressed (tense, Restless, Nervous, Or Anxious, Or Unable To Sleep At Night)? [id number] [email or web address] Information not available 09/19/2022 Do You Use Any Illicit Or Recreational Drugs? No Information not available 09/19/2022 Do You Use Sunscreen Routinely? No [email or web address] Information not available 09/19/2022 Have You Recently Traveled Abroad? No [email or web address] Information not available 09/19/2022 Do You Have Any Dietary Restrictions? No [email or web address] Information not available 09/19/2022 Sex: Unknown Functional Status Question Answer Note LastModified by Organizat ion Details LastModified Time What is your exercise level? Occasional [id number] Information not available 09/04/2022 Mental Status None recorded. Family History Relationship Description Onset Age of this Age Resolved Age Notes LastModified by Organization Details LastModified Time Mother Hypertensive disorder [id number] Not available 09/04/2022 00:47:38 Father Diabetes mellitus [id number] Not available 09/04/2022 00:47:38 Father Multiple myeloma [email or web address] Not available 09/19 11:18:09 Sister Family history of malignant neoplasm [email or web address] Not available 09/19 11:18:09 Brother Diabetes mellitus 54 [email or web address] [id number] Not available 09/04/2022 00:47:38 Medical History Condition Response NERVE DISEASE N BLINDNESS N RHEUMATIC FEVER N KIDNEY STONES N BLADDER PROBLEMS N MRSA N POLIO N LUNG DISEASE/DISORDER N COPD N RADIATION / CHEMOTHERAPY N BLOOD DISEASES N EAR OR HEARING PROBLEMS N MUMPS N BOWEL PROBLEMS N DEPRESSION (INCLUDING POST ) N STROKE/TIA N ULCERS N BENIGN PROSTATIC HYPERPLASIA N MEASLES N MYOCARDIAL INFARCTION N OBESITY N GERD/NAUSEA Y ANEURYSM N URINARY/BLADDER/KIDNEY PROBLEMS N CORONARY ARTERY DISEASE (CAD) N Do you have Advance directive? N ADDICTION CONCERNS N ENDOMETRIOSIS N Impotence N USE OF BLOOD THINNERS N SKIN PROBLEMS N GASTROINTESTINAL DISORDER N PERIPHERAL VASCULAR DISEASE N MUSCLE,JOINT OR BONE PROBLEMS N GASTROINTESTINAL BLEEDING N Do you have a living will? N BLOOD CLOTS N ASTHMA N CATARACTS N ERECTILE DYSFUNCTION N VARICOSITIES N GI PROBLEMS N Low Testosterone N INFERTILITY N AIDS/HIV N CHEMOTHERAPY / RADIATION N LIVER DISEASE N MALE HYPOGONADISM N HYPERTENSION N Deficiency Y ANXIETY DISORDER N BLOOD TRANSFUSION N ANEMIA/BLOOD DISORDER N CHRONIC EAR INFECTIONS N BRONCHITIS N TUBERCULOSIS N GLAUCOMA N FOOT PROBLEM Y DIVERTICULITIS N SLEEP APNEA N CHICKENPOX N INFECTIOUS DISEASE N HEART ARRHYTHMIA N PROSTATE N INSOMNIA N HIGH CHOLESTEROL / HYPERLIPIDEMIA N EYE PROBLEMS N EDEMA N CHRONIC PAIN SYNDROME N CAROTID BLOCKAGE N CONSTIPATION N BACK / NECK PROBLEMS N HAVE YOU BEEN HOSPITALIZED OR SEEN IN THE MEDICAL CENTER IN THE PAST YEAR ? N ATHEROSCLEROSIS N BREAST PROBLEMS N DIALYSIS N ECZEMA N OSTEOPOROSIS Y ARTHRITIS Y Do you have a healthcare POA? N APPENDICITIS N DIABETES, TYPE N BAD TEETH N ENT N HEARTBURN / REFLUX N AFIB N AUTISM SPECTRUM DISORDER (ASD) N HEPATITIS / LIVER DISEASE N GOUT N SLEEP DISORDER N ALZHEIMER'S DISEASE N Brain Problems N HERPES N DEMENTIA N HEADACHES/MIGRAINES Y SEIZURES/EPILEPSY N VASCULAR DISEASE N PACEMAKER N Blood Disorder N DIZZINESS N HEART DISEASE/HEART PROBLEMS N KIDNEY DISEASE N MULTIPLE SCLEROSIS N CARDIAC ARRHYTHMIA N CANCER: SPECIFY N ATRIAL FIBRILLATION N Gall Stones N PULMONARY EMBOLISM N AUTOIMMUNE DISEASE N Gynecological HistoryNo gynecological history recorded. Obstetrics History GPAL:G 0 P 0 0 0 0 Immunizations Vaccine Type Date Status Note Provider Nam e and Address Organization Details Recorded Time Influenza, split virus, quadrivalent, PF 2 completed Not Available [facility] 04/16/2023 10:05:15 COVID-19, mRNA, LNP-S, PF, 30 mcg/0.3 mL dose 1 completed Not Available [facility] 04/16/2023 10:05:14 Influenza, split virus, trivalent, preservative 9 completed Not Available [facility] 04/16/2023 10:05:15 influenza, unspecified formulation 8 completed Not Available [facility] 04/16/2023 10:05:14 Influenza, split virus, quadrivalent, preservative 7 completed Not Available [facility] 04/16/2023 10:05:14 Influenza, split virus, quadrivalent, preservative 6 completed Not Available [facility] 04/16/2023 10:05:14 COVID-19, mRNA, LNP-S, PF, 30 mcg/0.3 mL dose 2 completed Not Available [facility] 04/16/2023 10:05:14 COVID-19, mRNA, LNP-S, PF, 30 mcg/0.3 mL dose 1 completed Not Available [facility] 04/16/2023 10:05:14 COVID-19, mRNA, LNP-S, PF, 30 mcg/0.3 mL dose 1 completed Not Available [facility] 04/16/2023 10:05:14 Pneumococcal conjugate PCV 13 5 completed Not Available [facility] 04/16/2023 10:05:15 influenza, unspecified formulation 5 completed Not Available [facility] 04/16/2023 10:05:14 Influenza, split virus, quadrivalent, PF 0 completed Not Available [facility] 04/16/2023 10:05:15 Past Encounters Encounter ID Performer Location Encounter Start Date Encounter Closed Date Diagnosis/Indication Diagnosis SNOMED-CT Code Diagnosis ICD10 Code Diagnosis Note [id number] [facility] [place] [address] [place] [address] 09/05/2020 00:00:00 09/06/2020 09:23:20 [id number] [facility] [place] [address] [place] [address] 10/19/2020 00:00:00 10/22/2020 22:31:18 [id number] [facility] [place] [address] [facility] [place] [address] [place] [address] 10/26/2020 00:00:00 10/29/2020 14:31:15 [id number] [facility] [place] [address] [place] [address] 02/08/2021 00:00:00 02/12/2021 08:24:30 [id number] [facility] [place] [address] [place] [address] 04/23/2021 00:00:00 04/24/2021 13:55:04 [id number] [facility] [place] [address] [place] [address] 06/04/2021 00:00:00 06/04/2021 15:25:19 [id number] [facility] [place] [address] [place] [address] 07/23/2021 00:00:00 07/23/2021 11:00:12 [id number] [facility] [place] [address] [place] [address] 10/15/2021 00:00:00 10/15/2021 15:09:54 [id number] [facility] [place] [address] [facility] [address] [place] [address] 12/26/2021 00:00:00 12/28/2021 21:15:15 [id number] [facility] [address] [place] [address] Ave[address] [address] 01/04/2022 00:00:00 01/04/2022 14:10:12 [id number] [facility] [place] [address] [place] [address] 01/10/2022 00:00:00 01/10/2022 14:50:58 [id number] [facility] [address] [place] [address] Ave[address] [address] 02/05/2022 00:00:00 03/16/2022 10:20:21 [id number] [facility] [place] [address] [place] [address] 02/21/2022 00:00:00 02/22/2022 09:23:01 [id number] [facility] [address] [place] [address] [place] [address] 03/04/2022 00:00:00 03/04/2022 21:51:43 [id number] [facility] [address] [place], [place] [address]e., [address] [address] 03/18/2022 00:00:00 03/23/2022 13:45:22 [id number] [facility] [address] [place], [place] [address]., [address] [address] 06/03/2022 00:00:00 06/03/2022 11:04:43 [id number] [facility] [address] [place]., [address] [address] 06/27/2022 00:00:00 06/27/2022 22:57:48 [id number] Ming Singh MD [facility] [place] [address] [place] [address] 09/19/2022 11:16:52 09/26/2022 12:26:24 Pain of left shoulder joint [id number] M25.512 [id number] Wilberto Pro MD [facility] Internal Med [facility] [address] [facility], [place] [address] 09/23/2022 11:14:31 09/23/2022 11:36:28 Hyperglycemia 51465506 R73.9 Essential hypertension 65099937 I10 Gastroesop hageal reflux disease without esophagitis 629673089 K21.9 Hypothyroidism 41519892 E03.9 [id number] Ming Singh MD [place] [address] 9 11/07/2022 08:55:03 11/07/2022 09:44:03 Post traumatic osteoarthritis 279173918 M19.112 [id number] MADISON Cochran [place] [address] 9 12/19/2022 08:57:53 12/19/2022 09:28:27 Post traumatic osteoarthritis 120978325 M19.112 [id number] Wilberto Pro MD [facility] Internal Med [facility] [address] [place] [address] 1 01/06/2023 11:33:40 01/06/2023 13:07:58 Adult health examination 706042772 Z00.00 Depression screening 171 257230 Z13.31 neg Body mass index 30+ - obesity 367109736 Z68.34 Essential hypertension 76338014 I10 Gastroesop hageal reflux disease without esophagitis 895221393 K21.9 Hypothyroidism 27441271 E03.9 Obesity 414198219 E66.9 [id number] Wilberto Pro MD [facility] Internal Med [facility] [address] [facility], [address] [address] 05/07/2023 10:56:15 05/07/2023 12:25:49 Neck pain 96401464 M54.2 [id number] Wilberto Pro MD [facility] Internal Med [facility] [address] [address] 06/04/2023 15:56:13 06/04/2023 17:19:41 Renewal of prescription 685231736 Z76.0 [facility] 39200969 R 73.9 Hypothyroidism 41725001 E03.9 Chronic rhinitis 2955655 6 J31.0 Health Concerns Section Related Observation LastModified by Organization Detai ls LastModified Time None Recorded Concern Status LastModified by Organization Details LastModified Time None Recorded Advance Directives Directive N: Payers Encounter Date Sequence Insurance Name Policy Number Policy Moe Covered Member ID Moe Member ID Guarantor Name 11/07/2022 1 [place] [id number] Rosalino K Chito-E lliot [id number] Rosalino K Chito-Ell iott 11/07/2022 2 [place] [id number] Silvestre Solis Eitan [id number] Rosalino K [place]ito-[place] 12/19/2022 1 [place] [id number] Rosalino K Chito-E lliot [id number] Rosalino K Chito-[place]ott 12/19/2022 2 [place] [id number] Silvestre Irma Eitan [id number] Rosalino K [place]ito-[place] 01/06/2023 1 [place] [id number] Rosalino K Chito-E lliot [id number] Rosalino K Chito-[place] iott 01/06/2023 2 [place] [id number] Silvestre Solis Eitan [id number] Rosalino K Chito-[place]ott 05/07/2023 1 [place] [id number] Rosalino K Chito-E lliot [id number] Rosalino K Chito-Ell iott 05/07/2023 2 [place] [id number] Silvestre Irma Eitan [id number] Rosalino K Chito-[place]ott 06/04/2023 1 [place] [id number] Rosalino K Chito-E lliot [id number] Rosalino K Chito-Ell iott 06/04/2023 2 [place] [id number] Silvestre Irma Laird [id number] Rosalino gilbert Notes Date Note Type Note Provider Name and Address Organization Details Recorded Time 01/06/2023 text/html obesity doing we ll 40 lb off with the Ozempic. Pantoprazole GERD stable anxiety sertraline doing fine low vitamin-D taking her medication and doing fine bone health taking her alendronate without any symptoms wellness completed Wilberto Pro MD [address] [employer], [place], [address], Mozy 01/18/2023 16:55:45 05/07/2023 text/html Spell where the left side of her face feels a little bit like it is burning she has had these episodes in her legs and other parts of her body for the last 2-3 weeks then they go away no headache slurred speech blurred vision or other symptoms Wilberto Pro MD [address] [employer], [place], [address], Mozy 05/11/2023 11:15:56 06/04/2023 text/html Spell where the left side of her face feels a little bit like it is burning she has had these episodes in her legs and other parts of her body for the last 2-3 weeks then they go away no headache slurred speech blurred vision or other symptoms completely resolved does not want to see neuro Wilberto Pro MD [address], [place], [address], Mozy 06/04/2023 21:36:40 OBGyn Episode No OBEpisode recorded.
--- OUTSIDE RECORDS SUMMARY | 2024-08-25 13:47 | XMS_ITS | Clinical Summary ---
Author Organization [facility] [place] Address [address] [place] [address] Care Team Providers Care Hair Rooting Machine Operator Name Role Phone Aleksandr Pro MD Primary Care Provider [phone] Allergies No known active allergies Medications alendronate [...] on file Legal Sex Female 6:48 PM WASHER MACHINE Gender Identity Female 09/08/2023 7:46 PM WASHER MACHINE Sexual Orientation Straight 09/08/2023 7: 46 PM WASHER MACHINE Obstetrics History Last Filed Vital Signs Vital Sign Reading Time Taken Comments Blood Pressure 144/98 04/22/2024 8:30 AM CDT Pulse 80 04/22/2024 8:30 AM CDT Temperature 36.7 C (98.1 F) 08/06/2023 1:57 PM WASHER MACHINE Respiratory Rate 18 04/22/2024 8:30 AM CDT [...] 3, 04/16/2022, 04/19/2021, Additional history exists Insurance [employer] ACCESS [place] Care Teams Hair Rooting Machine Operator Relationship Specialty Start Date End Date Aleksandr Pro MD PCP - General Internal Medicine 11/12/18
--- OUTSIDE RECORDS SUMMARY | 2024-08-25 13:47 | XMS_ITS | Referral Summary ---
Author Organization [facility] Address [address] [place] [address] Care Team Providers Care Sales And Management Trainee Name Role Phone Aleksandr Pro MD Primary Care Provider [phone] Allergies No known active allergies Medications alendronate [...] on file Legal Sex Female 6:48 PM SERVICE SUPERVISOR Gender Identity Female 09/08/2023 7:46 PM SERVICE SUPERVISOR Sexual Orientation Straight 09/08/2023 7: 46 PM SERVICE SUPERVISOR Last Filed Vital Signs Vital Sign Reading Time Taken Comments Blood Pressure 144/98 04/22/2024 8:30 AM CDT Pulse 80 04/22/2024 8:30 AM CDT Temperature 36.7 C (98.1 F) 08/06/2023 1:57 PM SERVICE SUPERVISOR Respiratory Rate 18 04/22/2024 8:30 AM CDT Oxygen Saturation 98% 04/22/2024 8:30 AM CDT Inhaled Oxygen Concentration - - Weight 90.8 kg (200 lb 3.2 oz) 04/22/2024 8:30 A M CDT Height 162.6 cm (5' 4 ) 04/22/2024 8:30 AM CDT Body Mass Index 34.36 04/22/2024 8:30 AM CDT Plan of Treatment Not on file Insurance Index [facility] [place] Care Teams Sales And Management Trainee Relationship Specialty Start Date End Date Aleksandr Pro MD PCP - General Internal Medicine 11/12/18
== END 2024-08-25 13:41 | disposition home or self-care (01) ==
LOC: ANHIMG 13:43
PROVIDERS: PCP Internal Medicine; Visit Provider Nurse Practitioner
DX: M85.89 Other specified disorders of bone density and structure, multiple sites (principal); Z78.0 Asymptomatic menopausal state
CPT/HCPCS: 77080

== ENCOUNTER 2024-10-02 12:44 | Emergency (ER) | payer BC, SELFPAY ==
--- NOTE | ~2024-10-02 | XR_ITS ---
EXAMINATION: XR hand LT min 3V DATE: 10/02/2024 13:28 INDICATION: Left hand pain. TECHNIQUE: 3 views of left hand were obtained. COMPARISON: None. FINDINGS: Alignment is normal. No fracture. There is moderate osteoarthritis of first interphalangeal joint and mild osteoarthritis of second and third distal interphalangeal joints. IMPRESSION: 1. Polyarticular osteoarthritis. Reviewed, dictated and finalized at location A.
[2024-10-02 12:55] VITALS: BP 129/77; PULSE 72; RESP 19; TEMP 36.8; O2SAT 100
--- NOTE | 2024-10-02 13:02 | ED_ITS ---
HPI - Extremity Problem General Chief complaint: Extremity Problem,Nontraumatic Stated complaint: Left Hand Pain Time Seen by Provider: 10/02/24 13:02 Source: patient, RN notes reviewed and old records reviewed Mode of arrival: ambulatory Limitations: no limitations History of Present Illness HPI Narrative: 64-year-old female presents to the [facility] with complaints of left hand pain. Patient reports the pain started 9 days ago on the 01 of October. The patient tender to the distal ulna as well as along the 3rd metacarpal. Denies any injury. No swelling or bruising is noted at this time. Has taken Tylenol and been using a hand brace. States that she tried calling Dr. Soria, he is currently retired States that she tried calling Dr. Herrmann and is unable to get in, referred to the Urgent Care for evaluation Related Data Home Medications ?Medication ?Instructions ?Recorded ?Confirmed ?Last Taken ?Type ergocalciferol (vitamin D2) 1,250 1,250 mcg PO WEEKLY 06/25/24 06/25/24 Unknown History mcg (50,000 unit) capsule levothyroxine 25 mcg capsule 25 mcg PO DAILY 06/25/24 06/25/24 Unknown History semaglutide 1 mg/dose (2 mg/1.5 1 mg subcut WEEKLY 06/25/24 06/25/24 Unknown History mL) subcutaneous pen injector sertraline 50 mg tablet 50 mg PO DAILY 06/25/24 06/25/24 Unknown History atorvastatin 10 mg tablet mg 10/02/24 Unknown History Allergies Allergy/AdvReac Type Severity Reaction Status Date / Time No Known Allergies Allergy Unknown Verified 10/02/24 12:45 Review of Systems Review of Systems: All systems reviewed & are unremarkable except as noted in HPI and below Constitutional: Constitutional: Reports no additional constitutional complaints ENT: Reports system reviewed and no additional complaints, except as documented Cardiovascular: Cardiovascular: Reports no additional cardiovascular complaints, Denies chest pain and Denies dyspnea Respiratory: Respiratory: Reports no additional respiratory complaints, Denies chest congestion, Denies cough and Denies dyspnea Musculoskeletal: Musculoskeletal: Reports as per HPI Integumentary/Breasts: Skin/Breast: Reports system reviewed and no additional complaints, except as docu PMFSH Past Medical History Medical History Arthritis JILLIAN (obstructive sleep apnea) Chronic bronchitis Social History Social History Smoking packs per day: 1 Smoking cigarettes per day: 20.0 Years smoked: 6 Smoking pack-years: 6.00 Smoking status: Former smoker Tobacco type: cigarettes Second hand tobacco smoke exposure: Yes Alcohol intake: current Alcohol use details: 2 per month Substance use: never Substance use type: does not use Do You Feel Safe in your Home?: Yes Lack of Transportation: No Lack of Food: Never True Current Housing: I Have Housing Concerned About Future Housing: No Difficulty Paying Gas/Electric Bills: No Difficulty Paying for Meds: No Currently Unemployed: No Education: High School Diploma/GED Difficulty w/ Childcare or Family Care: No Living arrangements: with family Occupation/Education: occupation Gender identity (if verbalized by the patient): Female Spiritual care concerns: No Comments At the time of my signature, I reviewed and agree with the nursing past medical, surgical, social, and family history. There is no relevant family history pertinent to the patient complaint. Exam Const: General: cooperative, healthy appearing, comfortable, no acute distress, well developed, alert and well nourished Nutritional Appearance: well nourished Orientation/consciousness: patient oriented x3 Limitations: no limitations HENMT: Head: normal to inspection Eyes: General: appearance normal, both eyes and all related structures Alignment and Position: alignment normal Neck: Neck: normal visual inspection, full ROM, no lymphadenopathy and no meningeal signs Chest: Chest palpation & inspection: normal inspection of the chest Resp: Effort & Inspection: normal respiratory effort and able to speak in complete sentences Auscultation: clear to auscultation bilaterally, no crackles, no rales, no rhonchi and no wheezes Cardio: Rate: regular rate Skin: General skin exam: normal color and no rashes or lesions noted Neuro: General: patient oriented x3, gait normal, moves all extremities and no meningeal signs Cognition (Neuro): normal cognition Speech: normal speech Gait exam (Neuro): Normal gait present Extrem: General: normal to inspection, full ROM, capillary refill normal and normal gait Left upper extremity: hand normal capillary refill, neuromotor exam normal Details: wrist extension normal, thumb opposition normal, thumb IP flexion normal, thumb ADduction normal and fingers 2-5 ABduction normal, neurosensory exam normal, tenderness of the dorsal hand over the 3rd metacarpal, vascular exam radial pulse present and normal capillary refill, normal ROM of fingers and no swelling; no unusual warmth, no swelling, no abrasions, no lacerations and no ecchymosis Psych: Appearance: grossly normal and well kempt Mental Status: mental status grossly normal Speech and movement: Normal speech and movement present and Clear speech present Affect: normal affect Attitude: cooperative Course Course Level of Care: Express Care Visit Vital Signs Vital signs: Vital Signs Temperature 98.3 F 10/02/24 12:55 Pulse Rate 72 10/02/24 12:55 Respiratory Rate 19 10/02/24 12:55 Blood Pressure 129/77 10/02/24 12:55 Pulse Oximetry 100 10/02/24 12:55 Oxygen Delivery Room Air 10/02/24 12:55 Temperature 98.3 F 10/02/24 12:55 Pulse Rate 72 10/02/24 12:55 Respiratory Rate 19 10/02/24 12:55 Blood Pressure 129/77 10/02/24 12:55 Pulse Oximetry 100 10/02/24 12:55 Oxygen Delivery Room Air 10/02/24 12:55 Reviewed MDM - Extremity (Nontraumatic) MDM Narrative Medical decision making narrative: Patient sitting comfortably in exam room. Nontoxic, vitals stable. Patient in no acute distress. Patient presents with 9 day history of hand pain, wrist pain with no injury. X-ray shows polyarticular osteoarthritis Patient appropriate for outpatient treatment with close Discharge instructions reviewed with patient, as well as provided in writing per nursing staff. The instructions also include specific and strict return/GO TO THE ER as well as f/u information. All questions have been answered, and the patient deny any further questions with discharge and discharge plan. Some parts of this dictation were generated by voice recognition software and may contain typographical and/or grammatical inaccuracies. Differential Diagnosis Differential diagnosis: Likely other (Sprain, strain, fracture, arthritis) Imaging Data Radiologist's impression: EXAMINATION: XR hand LT min 3V DATE: 10/02/2024 13:28 INDICATION: Left hand pain. TECHNIQUE: 3 views of left hand were obtained. COMPARISON: None. FINDINGS: Alignment is normal. No fracture. There is moderate osteoarthritis of first interphalangeal joint and mild osteoarthritis of second and third distal interphalangeal joints. IMPRESSION: 1. Polyarticular osteoarthritis. Critical Care Time Critical Care Time Critical Care Time: No Discharge Plan Discharge Clinical Impression: Polyarticular osteoarthritis, Hand pain, left Patient Disposition: Home, Self-Care Condition: Stable Instructions: Antibiotic Form, Osteoarthritis (ED) Additional Instructions: Ice or heat for 15-20 minutes every 2-3 hours while awake. Take Tylenol alternating with ibuprofen as needed for pain Follow-up with your primary care provider Patient Language: Citizen Of [place] Prescriptions: No Action atorvastatin 10 mg tablet levothyroxine 25 mcg capsule 25 mcg PO DAILY semaglutide 1 mg/dose (2 mg/1.5 mL) pen injector 1 mg subcut WEEKLY sertraline 50 mg tablet 50 mg PO DAILY ergocalciferol (vitamin D2) 1,250 mcg (50,000 unit) capsule 1,250 mcg PO WEEKLY pantoprazole 40 mg tablet,delayed release (DR/EC) 40 mg PO QAM Qty: 90 0RF ibuprofen 800 mg tablet 800 mg PO TID Qty: 60 0RF Follow-up/Referrals: Morteza,MD Aleksandr [Primary Care Provider] - 2 Weeks ([facility] follow-up) Stand Alone Forms: Work/School Release IP Time of Disposition: 13:35
== END 2024-10-02 13:40 | disposition home or self-care (01) ==
PROVIDERS: Emergency Provider Nurse Practitioner; PCP Internal Medicine
DX: M19.042 Primary osteoarthritis, left hand (principal); Z87.891 Personal history of nicotine dependence
CPT/HCPCS: 73130; 99213; G0463

== ENCOUNTER 2024-12-30 13:24 | Outpatient (CLI) | payer BC, SELFPAY ==
--- NOTE | ~2024-12-30 | XR_ITS ---
EXAMINATION: XR lg joint inject/asp w image DATE: 12/30/2024 14:30 INDICATION: Primary osteoarthritis of the left shoulder TECHNIQUE: A time-out was performed to verify the patient's name, date of , and procedure to b e performed. The procedure including the risks, benefits, and alternatives was discussed with the pat ient. Risks discussed included bleeding and infection. The patient understood the risks and agreed to proceed. The skin overlying the rotator cuff interval the left glenohumeral joint was prepped and d raped in usual sterile fashion. Anesthetic was administered with 1% lidocaine subcutaneously. A 22 G needle was advanced under fluoroscopic guidance into the joint. Injection of 1 mL of Omnipaque 240 confirmed intra-articular position of the needle. Subsequently, injectate consisting of 5 mm a 4:1 mixture of 1% lidocaine: 80 mg/mL Depo-Medrol was instilled. Washout of contrast was seen confirming intra-articular administration. The needle was removed and the entry site was cleaned and dressed. T here were no immediate complications. Fluoroscopy exposure time was 0.2 minutes. The total number of images was 2. Total DAP was 0.501 Gycm^2. FINDINGS: Real-time fluoroscopy demonstrates the needle and injected gas and contrast in the left gle nohumeral joint. Patient's pain prior to procedure:2/10. Patient's pain following the procedure: 2/1 0. IMPRESSION: 1. Left glenohumeral joint injection of local anesthetic and steroid with no change in the patient's presenting pain. Reviewed, dictated and finalized at location A. IMPRESSION: 1. Left glenohumeral joint injection of local anesthetic and steroid with no ch forest in the patient's presenting pain.
== END 2024-12-30 13:25 | disposition home or self-care (01) ==
PROVIDERS: PCP Internal Medicine; Visit Provider Physician Assistant Surgical
DX: M19.012 Primary osteoarthritis, left shoulder (principal)
CPT/HCPCS: 20610; 77002; J1010; J2003; Q9966

== ENCOUNTER 2025-06-20 13:37 | Outpatient (CLI) | payer BC, SELFPAY ==
--- NOTE | ~2025-06-20 | XR_ITS ---
EXAM/PROCEDURE: XR lg joint inject/asp w image HISTORY: M19.012 - Primary osteoarthritis, left shoulder COMPARISON: None available. TECHNIQUE: Fluoroscopic guided left shoulder steroid injection Fluoroscopy time: 0.2 minutes DAP: 0.501 brooks per square centimeter Number of images: 2 PROCEDURE: Timeout and informed consent obtained in the usual manner. The patient was placed supine on fluoroscopy table and left shoulder was prepped and draped in sterile fashion. Combination of 80 mg Depo-Medrol and 4 cc of 1% lidocaine administered intra- articular after 1 mm of Omnipaque contrast was injected to confirm location. The needle was withdrawn with no immediate complication. IMPRESSION: Patient status post left shoulder steroid injection with no immediate complication. 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
--- OUTSIDE RECORDS SUMMARY | 2025-06-20 15:00 | XMS_ITS | Clinical Summary ---
Author Organization [facility] Address [address] [place] [id number] Care Team Providers Care Screen Printing Stencil Preparer Name Role Phone Unavailable Primary Care Provider [...] Screening with HPV 1991 Mammogram Screening 2001 Pneumococcal Vaccine: 50+ Ye ars (1 of 1 - PCV) 2011 Zoster Vaccines (1 of 2) 2011 COVID-19 Vaccine (2024-2 6 season) 2025 Influenza Adult (#1) 2025 RSV Immunization or 60+ Years (1 - 1-dose 75+ series) 2036 Hepatitis A Vaccines Aged Out No long er eligible based on patient's age to complete this topic Meningococcal B Vaccine Aged Out No l onger eligible based on patient's age to complete this topic Meningococcal Vaccine Aged Out No roel mitchell eligible based on patient's age to complete this topic RSV Immunizations Under 20 Months Aged Out No longer eligible based on patient's age to complete this topic
--- OUTSIDE RECORDS SUMMARY | 2025-06-20 15:00 | XMS_ITS | Encounter Summary ---
Author Organization [facility] Care Team Providers Care Chemical Packager Name Role Phone Aleksandr Pro MD Primary Care Provider Encounter Details Date Type Department Care Team (Latest Contact Info) Description 11/14/2015 Orders Only [facility]IN[facility] ProviderMisa MD [address] [place] [id number] Social History Tobacco Use Types Packs/Day Years Used Date Smoking Tobacco: Never Assessed Comments Unknown Sex and Gender Information Value Date Recorded Sex Assigned at Not on file Legal Sex Female 6:48 PM [employer] Gender Identity Female 09/08/2023 7:46 PM [employer] Sexual Orientation Straight 09/08/2023 7: 46 PM [employer] documented as of this encounter Plan of [...] on filedocumented in this encounter Care Teams Chemical Packager Relationship Specialty Start Date End Date Aleksandr Pro MD PCP - General Internal Medicine 11/12/18 documented as of this encounter
--- OUTSIDE RECORDS SUMMARY | 2025-06-20 15:01 | XMS_ITS | Clinical Summary ---
Author Organization [facility] [place] Address [address] [place] [address] Care Team Providers Care [employer] Professional Name Role Phone Aleksandr Pro MD Primary [...] on file Legal Sex Female 6:48 PM [employer] Gender Identity Female 09/08/2023 7:46 PM [employer] Sexual Orientation Straight 09/08/2023 7: 46 PM [employer] Last Filed Vital Signs Vital Sign Reading Time Taken Comments Blood Pressure 144/98 04/22/2024 8:30 AM CDT Pulse 80 04/22/2024 8:30 AM CDT Temperature 36.7 C (98.1 F) 08/06/2023 1:57 PM [employer] Respiratory Rate 18 04/22/2024 8:30 AM CDT Oxygen Saturation 98% 04/22/2024 8:30 AM CDT Inhaled Oxygen Concentration - - Weight 90.8 kg (200 lb 3.2 oz) 04/22/2024 8:30 A M CDT Height 162.6 cm (5' 4) 04/22/2024 8:30 AM CDT Body Mass Index 34.36 04/22/2024 8:30 AM CDT Plan of Treatment Health Maintenance Due Date Last Done Comments Breast Cancer Screening-Mammogram 1961 Cervical Cancer Screening 1961 Colon Cancer Screening-Colonoscopy 1961 Depression Screening 1961 Hepatitis C Screening 1961 DTaP/Tdap/Td Vaccine (1 - Tdap) 1972 Hepatitis B Screening 1979 Regular Well Visit/Exam 18-64 1979 Pneumococcal vaccine <65 (2 of 2 - PPSV23, PCV20, or PCV21) 05/26/2015 03/31/2015, 03/30/2015, 07/07/2014 Zoster Vaccine (2 of 2) 06/18/2023 04/23/2023 Covid-19 Vaccine (7 2024-2 6 season) 2025 04/23/2023, 04/16/2022, 01/13/2022, Additional history exists Influenza Vaccine (#1) 2025 , 04/16/2022, 04/19/2021, Additional history exists Insurance [employer] OOS Care Teams [employer] Professional Relationship Specialty Start Date End Date Aleksandr Pro MD PCP - General Internal Medicine 11/12/18
== END 2025-06-20 13:38 | disposition home or self-care (01) ==
PROVIDERS: PCP Internal Medicine; Visit Provider Physician Assistant Surgical
DX: M19.012 Primary osteoarthritis, left shoulder (principal)
CPT/HCPCS: 20610; 77002; J1010; J2003